=== PATIENT | female | born 1935 | race Caucasian/White ===

== ENCOUNTER 2018-07-03 12:39 | Inpatient (IN) ==
[2018-07-03] MEDS ORDERED: ALBUT/IPRATROP 3MG/0.5MG NEB 3 ML VIAL INH STA (13:15)
[2018-07-03 13:28] LABS: Basophils # (auto) 0.01 K/uL (0-0.2); Basophils % (auto) 0.1 %; Immature Granulocytes # (auto) 0.06 K/uL (0.00-0.02); Immature Granulocytes % (auto) 0.4 %; Lymphocytes # (auto) 0.42 K/uL (1.2-3.4); Lymphocytes % (auto) 2.9 %; Mean Corpuscular Hgb Conc 30.8 g/dL (32-36); Mean Platelet Volume 11.8 fL (7.4-10.4); Monocytes # (auto) 1.71 K/uL (0.11-0.59); Monocytes % (auto) 11.9 %; Neutrophils # (auto) 12.15 K/uL (1.4-6.5); Neutrophils % (auto) 84.7 %; Platelet Count 335 K/uL (130-400); RDW Coefficient of Variation 13.1 % (11.5-14.5); RDW Standard Deviation 49.8 fL (36.4-46.3); Red Blood Count 3.75 M/uL (4.2-5.4); White Blood Count 14.35 K/uL (4.8-10.8)
[2018-07-03 13:41] LABS: INR 1.1 (0.9-1.1); Partial Thromboplastin Ratio 0.9; Partial Thromboplastin Time 25.3 Seconds (21.0-31.0)
[2018-07-03 13:45] LABS: Albumin Level 3.1 gm/dl (3.4-5.0); BUN Creatinine Ratio 29.6 (10-20); Calcium 9.7 mg/dl (8.5-10.1); Creatinine Clr Calc Pharmacy 35.2 ml/min; Est GFR (African American) 73.5; Est GFR (Non-African American) 63.4; Potassium 3.7 mmol/L (3.5-5.1)
[2018-07-03] MEDS ORDERED: methylPREDNISolone 125 MG/2 ML VIAL IV STA (13:50)
[2018-07-03 13:54] LABS: Albumin Globulin Ratio 0.6 (0.9-2); Bilirubin,Total 0.4 mg/dl (0.2-1); Globulin 5.4 gm/dl (2.5-4.0); Total Protein 8.5 gm/dl (6.4-8.2); Troponin I 0.14 ng/ml (0-0.045)
[2018-07-03 13:54] LABS: Base Excess VBG 6.8 mEq/L; Oxygen Saturation VBG 81.2 %; pH VBG 7.31 (7.36-7.41)
--- NOTE | 2018-07-03 13:59 | XRay Report ---
XR chest 1V portable CLINICAL HISTORY: Dyspnea dyspnea COMPARISON STUDY: No previous studies for comparison. FINDINGS: Moderate emphysematous change. Prominent parenchymal markings throughout both hemithoraces suggesting chronic fibrotic change versus nonspecific infiltrative change. There are no consolidative regions. Diaphragms are smooth. IMPRESSION: 1. Hyperaeration. 2. Emphysematous change. 3. Prominent parenchymal markings throughout both hemithoraces possibly related to chronic fibrosis v ersus a nonspecific pneumonitis. The above report was generated using voice recognition software. It may contain grammatical, syntax or spelling errors. Electronically signed by: Arturo Carrillo M.D. 07/03/2018 1:57 PM
[2018-07-03] MEDS ORDERED: ALBUT/IPRATROP 3MG/0.5MG NEB 3 ML VIAL NEB STA (14:08)
[2018-07-03] MEDS ORDERED: ASPIRIN 81 MG CHEW PO STA (14:08)
[2018-07-03 14:21] LABS: Influenza A virus by PCR Neg for Influ A (Neg); Influenza B virus by PCR Neg for Influ B (Neg)
--- NOTE | 2018-07-03 14:28 | Emergency Department Note ---
Entered by Shorty Tineo acting as a scribe for Rosales Rehman M.D. History of Present Illness General Chief complaint: Respiratory Distress Stated complaint: RESPIRATORY DISTRESS Source: patient and other (nurses) History of Present Illness Onset (ago): hour(s) (worsening today) Location: chest (lungs) Pain Consistency: + other (worsening) Quality: + other (cough) Associated symptoms: + other (patient denies shortness of breath or any pain) Treatments prior to arrival: other (increased supplemental oxygen) The patient is an 83 year old female with COPD who presents to the Emergency Room with complaints of a persistent cough worsening today. Nursing staff report that the patient was found today by her home aides to be in significantly in creased work of breathing. They state that the patients supplemental oxygen was increased prior to arrival. A CPAP was also attempted, but they were unable to find an appropriately-fitting mask. The patient reports that she does not feel short of breath and is not in any pain. She denies recent cold symptoms or fevers. She notes that she chronically wears four liters of supplemental oxygen at home. She reports that she is a former smoker. Home Medications Home Medications Medication Instructions Recorded Confirmed Type ferrous sulfate 325 mg PO BID 07/03/18 07/03/18 History fluticasone propion-salmeterol 1 inh INHALATION BID 07/03/18 07/03/18 History [Advair Diskus] ipratropium-albuterol 3 ml INHALATION Q8H PRN 07/03/18 07/03/18 History levothyroxine 50 mcg PO QAM 07/03/18 07/03/18 History lisinopril 10 mg PO QAM 07/03/18 07/03/18 History lorazepam 0.5 mg PO UD PRN 07/03/18 07/03/18 History mesalamine [Apriso] 1.5 g PO QAM 07/03/18 07/03/18 History paroxetine HCl 10 mg PO QDL 07/03/18 07/03/18 History raloxifene [Evista] 60 mg PO QAM 07/03/18 07/03/18 History Allergies Allergy/AdvReac Type Severity Reaction Status Date / Time Penicillins Allergy Verified 07/03/18 15:38 Past Med/Surg History Medical History Adjustment disorder with mixed anxiety and depressed mood (Chronic) COPD (chronic obstructive pulmonary disease) (Chronic) Essential hypertension (Chronic) Hypercholesteremia (Chronic) Hypothyroidism (Chronic) Iron deficiency anemia (Chronic) Osteoporosis (Chronic) Requires supplemental oxygen (Chronic) Ulcerative colitis (Chronic) Family History Other Family history non-contributory Social History Preferred Language: Kyrgyz Communication Ability: confusion Beliefs That Will Affect Care: None Current Living Situation: [facility] Current Living Situation Comment: [facility] Other Information That Helps Us Care for You: No Feels Safe at Home: Yes Smoking Status: Former smoker Hx Alcohol Use: No Hx Substance Use: No Review of Systems See HPI for pertinent positives & negatives. and A total of 10 systems reviewed and were otherwise negative Physical Exam Vital Signs Vital Signs - 24 hr 07/03/18 12:45 07/03/18 12:54 07/03/18 13:08 Temperature 36.4 C L Temperature Source Oral Sepsis Recent Fever Within 48 Hours No Sepsis New/Unexplained Change in Mental Status No Sepsis Action Taken by Nursing No Action Required Pulse Rate 115 H 115 H 114 H Pulse Rate [Apical] Pulse Rate from SpO2 Sensor 115 H 115 H Pulse Rhythm [Apical] Pulse Strength [Apical] Respiratory Rate 26 H 28 H 40 H Respiratory Effort / Characteristics Labored Respiratory Depth Shallow Respiratory Pattern Tachypnea Blood Pressure 139/69 139/68 Blood Pressure [Right Arm] Blood Pressure Mean 92 91 Blood Pressure Mean [Right Arm] Blood Pressure Position [Right Arm] Pulse Oximetry 92 95 89 L Oxygen Delivery Method Nasal Cannula Oxygen Flow Rate 3 07/03/18 13:17 07/03/18 13:29 07/03/18 13:30 Temperature Temperature Source Sepsis Recent Fever Within 48 Hours Sepsis New/Unexplained Change in Mental Status Sepsis Action Taken by Nursing Pulse Rate 114 H 115 H Pulse Rate [Apical] 114 H Pulse Rate from SpO2 Sensor 115 H 114 H Pulse Rhythm [Apical] Pulse Strength [Apical] Respiratory Rate 43 H 36 H 42 H Respiratory Effort / Characteristics Labored Respiratory Depth Respiratory Pattern Blood Pressure Blood Pressure [Right Arm] Blood Pressure Mean Blood Pressure Mean [Right Arm] Blood Pressure Position [Right Arm] Pulse Oximetry 93 97 91 Oxygen Delivery Method Oxymask Non-rebreather Oxygen Flow Rate 10 07/03/18 13:42 07/03/18 13:43 07/03/18 13:45 Temperature Temperature Source Sepsis Recent Fever Within 48 Hours Sepsis New/Unexplained Change in Mental Status Sepsis Action Taken by Nursing Pulse Rate 114 H 114 H 112 H Pulse Rate [Apical] Pulse Rate from SpO2 Sensor 114 H 114 H 114 H Pulse Rhythm [Apical] Pulse Strength [Apical] Respiratory Rate 31 H 43 H 34 H Respiratory Effort / Characteristics Respiratory Depth Respiratory Pattern Blood Pressure 157/121 H 161/100 H Blood Pressure [Right Arm] Blood Pressure Mean 133 120 Blood Pressure Mean [Right Arm] Blood Pressure Position [Right Arm] Pulse Oximetry 92 91 92 Oxygen Delivery Method Oxygen Flow Rate 07/03/18 13:46 07/03/18 14:00 07/03/18 14:02 Temperature Temperature Source Sepsis Recent Fever Within 48 Hours Sepsis New/Unexplained Change in Mental Status Sepsis Action Taken by Nursing Pulse Rate 118 H 117 H Pulse Rate [Apical] 113 H Pulse Rate from SpO2 Sensor 120 H 115 H Pulse Rhythm [Apical] Regular Pulse Strength [Apical] Normal Respiratory Rate 36 H 44 H 30 H Respiratory Effort / Characteristics Spontaneous Short of Breath Respiratory Depth Retractive Respiratory Pattern Tachypnea Blood Pressure 174/80 H Blood Pressure [Right Arm] 161/100 H Blood Pressure Mean 111 Blood Pressure Mean [Right Arm] 120 Blood Pressure Position [Right Arm] Pulse Oximetry 92 95 95 Oxygen Delivery Method Oxymask Oxygen Flow Rate 5 07/03/18 14:15 07/03/18 14:30 07/03/18 14:31 Temperature Temperature Source Sepsis Recent Fever Within 48 Hours Sepsis New/Unexplained Change in Mental Status Sepsis Action Taken by Nursing Pulse Rate 115 H 118 H 117 H Pulse Rate [Apical] Pulse Rate from SpO2 Sensor 115 H 118 H 117 H Pulse Rhythm [Apical] Pulse Strength [Apical] Respiratory Rate 35 H 35 H 18 Respiratory Effort / Characteristics Respiratory Depth Respiratory Pattern Blood Pressure 150/114 H Blood Pressure [Right Arm] Blood Pressure Mean 126 Blood Pressure Mean [Right Arm] Blood Pressure Position [Right Arm] Pulse Oximetry 95 94 95 Oxygen Delivery Method Oxygen Flow Rate 07/03/18 14:45 07/03/18 15:00 07/03/18 15:01 Temperature Temperature Source Sepsis Recent Fever Within 48 Hours Sepsis New/Unexplained Change in Mental Status Sepsis Action Taken by Nursing Pulse Rate 116 H 116 H Pulse Rate [Apical] Pulse Rate from SpO2 Sensor 115 H 114 H 115 H Pulse Rhythm [Apical] Pulse Strength [Apical] Respiratory Rate 15 Respiratory Effort / Characteristics Respiratory Depth Respiratory Pattern Blood Pressure Blood Pressure [Right Arm] Blood Pressure Mean 96 Blood Pressure Mean [Right Arm] Blood Pressure Position [Right Arm] Pulse Oximetry 93 91 Oxygen Delivery Method Oxygen Flow Rate 07/03/18 15:02 07/03/18 15:10 07/03/18 15:15 Temperature Temperature Source Sepsis Recent Fever Within 48 Hours Sepsis New/Unexplained Change in Mental Status Sepsis Action Taken by Nursing Pulse Rate 113 H 111 H 114 H Pulse Rate [Apical] Pulse Rate from SpO2 Sensor 113 H 111 H 113 H Pulse Rhythm [Apical] Pulse Strength [Apical] Respiratory Rate 38 H Respiratory Effort / Characteristics Respiratory Depth Respiratory Pattern Blood Pressure 142/79 H Blood Pressure [Right Arm] Blood Pressure Mean 100 Blood Pressure Mean [Right Arm] Blood Pressure Position [Right Arm] Pulse Oximetry 92 93 92 Oxygen Delivery Method Oxygen Flow Rate 07/03/18 15:20 07/03/18 15:30 07/03/18 15:31 Temperature Temperature Source Sepsis Recent Fever Within 48 Hours Sepsis New/Unexplained Change in Mental Status Sepsis Action Taken by Nursing Pulse Rate 108 H 108 H 108 H Pulse Rate [Apical] Pulse Rate from SpO2 Sensor 109 H 107 H 108 H Pulse Rhythm [Apical] Pulse Strength [Apical] Respiratory Rate 34 H 33 H 36 H Respiratory Effort / Characteristics Respiratory Depth Respiratory Pattern Blood Pressure 115/76 Blood Pressure [Right Arm] Blood Pressure Mean 89 Blood Pressure Mean [Right Arm] Blood Pressure Position [Right Arm] Pulse Oximetry 93 92 Oxygen Delivery Method Oxygen Flow Rate 07/03/18 15:40 07/03/18 15:50 07/03/18 16:00 Temperature Temperature Source Sepsis Recent Fever Within 48 Hours Sepsis New/Unexplained Change in Mental Status Sepsis Action Taken by Nursing Pulse Rate 105 H 105 H 103 H Pulse Rate [Apical] Pulse Rate from SpO2 Sensor 105 H 105 H 103 H Pulse Rhythm [Apical] Pulse Strength [Apical] Respiratory Rate 37 H 32 H 32 H Respiratory Effort / Characteristics Respiratory Depth Respiratory Pattern Blood Pressure 117/65 Blood Pressure [Right Arm] Blood Pressure Mean 82 Blood Pressure Mean [Right Arm] Blood Pressure Position [Right Arm] Pulse Oximetry 92 92 92 Oxygen Delivery Method Oxygen Flow Rate 07/03/18 16:07 07/03/18 16:30 07/03/18 16:32 Temperature Temperature Source Sepsis Recent Fever Within 48 Hours Sepsis New/Unexplained Change in Mental Status Sepsis Action Taken by Nursing Pulse Rate 105 H Pulse Rate [Apical] Pulse Rate from SpO2 Sensor 106 H 105 H Pulse Rhythm [Apical] Pulse Strength [Apical] Respiratory Rate Respiratory Effort / Characteristics Respiratory Depth Respiratory Pattern Blood Pressure 156/78 H Blood Pressure [Right Arm] Blood Pressure Mean 104 Blood Pressure Mean [Right Arm] Blood Pressure Position [Right Arm] Pulse Oximetry 93 95 Oxygen Delivery Method Non-rebreather Oxygen Flow Rate 07/03/18 17:00 07/03/18 17:15 07/03/18 17:30 Temperature 37.2 C Temperature Source Oral Sepsis Recent Fever Within 48 Hours Sepsis New/Unexplained Change in Mental Status Sepsis Action Taken by Nursing Pulse Rate 103 H 103 H Pulse Rate [Apical] 104 H Pulse Rate from SpO2 Sensor 103 H 103 H Pulse Rhythm [Apical] Regular Pulse Strength [Apical] Respiratory Rate 16 Respiratory Effort / Characteristics Non-Labored Spontaneous SOB on Exertion Respiratory Depth Shallow Respiratory Pattern Tachypnea Blood Pressure 160/78 H Blood Pressure [Right Arm] 160/78 H Blood Pressure Mean 105 Blood Pressure Mean [Right Arm] 105 Blood Pressure Position [Right Arm] Lying Pulse Oximetry 94 94 94 Oxygen Delivery Method Nasal Cannula Oxygen Flow Rate 6 07/03/18 18:00 07/03/18 18:01 Temperature Temperature Source Sepsis Recent Fever Within 48 Hours Sepsis New/Unexplained Change in Mental Status Sepsis Action Taken by Nursing Pulse Rate 102 H 102 H Pulse Rate [Apical] Pulse Rate from SpO2 Sensor 103 H 102 H Pulse Rhythm [Apical] Pulse Strength [Apical] Respiratory Rate Respiratory Effort / Characteristics Respiratory Depth Respiratory Pattern Blood Pressure 158/74 H Blood Pressure [Right Arm] Blood Pressure Mean 102 Blood Pressure Mean [Right Arm] Blood Pressure Position [Right Arm] Pulse Oximetry 96 97 Oxygen Delivery Method Oxygen Flow Rate GENERAL: Awake, alert but occasionally slightly confused/waxing and waning, with increased work of breathing HENT: Normocephalic, atraumatic. Oropharynx unremarkable. EYES: Normal conjunctiva. Sclera non-icteric. NECK: Supple. No nuchal rigidity. RESPIRATORY: Clear to auscultation. No wheezes. Tachypnea and increased work of breathing. Diminished breath sounds throughout. CARDIAC: Tachycardic rate. Normal rhythm. Extremities warm and well perfused. GI: Soft, non-distended. No tenderness to palpation. No rebound or guarding. RECTAL: Deferred. MUSCULOSKELETAL: Atraumatic. Chest examination reveals no tenderness. LOWER EXTREMITIES: Calves are equal size bilaterally and non-tender. No edema NEURO: Normal sensorium. No sensory or motor deficits noted. No facial droop. SKIN: Warm and dry. No rash or jaundice noted. Course 1313: Past medical records reviewed. The patient was evaluated in room C8, and a complete history and physical examination were performed. 1428: I consulted Caridad Fisher PA-C: [facility] Hospitalist with Dr. Diaz. The patient will be reevaluated for hospitalization. Consultations Consultation #1: I consulted Caridad Fisher PA-C: [facility] Hospitalist with Dr. Diaz. The patient will be reevaluated for hospitalization. Time: 14:28 Administered Medications Dextrose/Sodium Chloride (D5w And 1/2nss) 1,000 mls @ 50 mls/hr IV .Q20H PABLO Stop: 08/02/18 16:54 Last Admin: 07/03/18 17:13 Dose: 50 mls/hr Documented by: [id number] Azithromycin 500 mg/ Dextrose 255 mls @ 127.5 mls/hr IV TODAY@1800 ONE Stop: 07/03/18 19:59 Last Admin: 07/03/18 17:57 Dose: 127.5 mls/hr Documented by: [id number] Discontinued Medications Albuterol (Duoneb) 3 ml INH NOW STA Stop: 07/03/18 13:16 Last Admin: 07/03/18 13:43 Dose: 3 ml Documented by: [id number] Albuterol (Duoneb) 3 ml NEB NOW STA Stop: 07/03/18 14:09 Last Admin: 07/03/18 14:17 Dose: 3 ml Documented by: [id number] Aspirin (Aspirin Chew) 324 mg PO NOW STA Stop: 07/03/18 14:09 Last Admin: 07/03/18 14:17 Dose: 324 mg Documented by: [id number] Methylprednisolone (Solumedrol) 125 mg IV NOW STA Stop: 07/03/18 13:51 Last Admin: 07/03/18 13:55 Dose: 125 mg Documented by: [id number] Medical Decision Making Differential Diagnosis Differential diagnosis: Etiologies such as infections, reactive airway disease, pneumonia, pneumothorax, COPD, CHF, cardiac ischemia, pulmonary embolism, musculoskeletal, gastrointestinal, as well as others were entertained. Medical Records Attestation: I reviewed the patient's medical records. Home Medications Current Medication List: was personally reviewed by me Laboratory Data Attestation: I reviewed the patient's lab results. Result diagrams: 07/03/18 13:19 07/03/18 13:19 Lab Results 07/03/18 07/03/18 07/03/18 Range/Units 13:19 13: 13: WBC 14.35 H (4.8-10.8) K/uL RBC 3.75 L (4.2-5.4) M/uL Hgb 12.0 (12.0-16.0) g/dL Hct 39.0 (37-47) % MCV 104.0 H (80-100) fL MCH 32.0 (25-34) pg MCHC 30.8 L (32-36) g/dL RDW Std Deviation 49.8 H (36.4-46.3) fL RDW Coeff of Robin 13.1 (11.5-14.5) % Plt Count 335 (130-400) K/uL MPV 11.8 H (7.4-10.4) fL Immature Gran % (Auto) 0.4 % Neut % (Auto) 84.7 % Lymph % (Auto) 2.9 % [place] % (Auto) 11.9 % Eos % (Auto) 0.0 % Baso % (Auto) 0.1 % Immature Gran # (Auto) 0.06 H (0.00-0.02) K/uL Neut # (Auto) 12.15 H (1.4-6.5) K/uL Lymph # (Auto) 0.42 L (1.2-3.4) K/uL [place] # (Auto) 1.71 H (0.11-0.59) K/uL Eos # (Auto) 0.00 (0-0.5) K/uL Baso # (Auto) 0.01 (0-0.2) K/uL PT 11.0 (9.0-12.0) Seconds INR 1.1 (0.9-1.1) APTT 25.3 (21.0-31.0) Seconds PTT Ratio 0.9 VBG pH (7.36-7.41) VBG pCO2 (38-50) mmHg VBG pO2 mmHg VBG HCO3 mmol/L VBG O2 Saturation % VBG Base Excess mEq/L Barometric Pressure mm/Hg Sodium 141 (136-145) mmol/L Potassium 3.7 (3.5-5.1) mmol/L Chloride 103 (98-107) mmol/L Carbon Dioxide 33 H (21-32) mmol/L Anion Gap 5.0 (3-11) BUN 25 H (7-18) mg/dl Creatinine 0.84 (0.6-1.2) mg/dl Est Cr Clr Drug Dosing 35.2 ml/min Est GFR ( Amer) 73.5 Est GFR (Non-Af Amer) 63.4 BUN/Creatinine Ratio 29.6 H (10-20) Glucose 229 H (70-99) mg/dl POC Lactic Acid Mauricio (0.90-1.70) mmol/L Calcium 9.7 (8.5-10.1) mg/dl Total Bilirubin 0.4 (0.2-1) mg/dl AST 19 (15-37) U/L ALT 15 (12-78) U/L Alkaline Phosphatase 77 (45-117) U/L Troponin I 0.140 H* (0-0.045) ng/ml Total Protein 8.5 H (6.4-8.2) gm/dl Albumin 3.1 L (3.4-5.0) gm/dl Globulin 5.4 H (2.5-4.0) gm/dl Albumin/Globulin Ratio 0.6 L (0.9-2) Procalcitonin (0-0.5) ng/ml Influenza Type A (PCR) (Neg) Influenza Type B (PCR) (Neg) 07/03/18 07/03/18 07/03/18 Range/Units 13:23 13:28 13:45 WBC (4.8-10.8) K/uL RBC (4.2-5.4) M/uL Hgb (12.0-16.0) g/dL Hct (37-47) % MCV (80-100) fL MCH (25-34) pg MCHC (32-36) g/dL RDW Std Deviation (36.4-46.3) fL RDW Coeff of Robin (11.5-14.5) % Plt Count (130-400) K/uL MPV (7.4-10.4) fL Immature Gran % (Auto) % Neut % (Auto) % Lymph % (Auto) % [place] % (Auto) % Eos % (Auto) % Baso % (Auto) % Immature Gran # (Auto) (0.00-0.02) K/uL Neut # (Auto) (1.4-6.5) K/uL Lymph # (Auto) (1.2-3.4) K/uL [place] # (Auto) (0.11-0.59) K/uL Eos # (Auto) (0-0.5) K/uL Baso # (Auto) (0-0.2) K/uL PT (9.0-12.0) Seconds INR (0.9-1.1) APTT (21.0-31.0) Seconds PTT Ratio VBG pH 7.31 L (7.36-7.41) VBG pCO2 73 H (38-50) mmHg VBG pO2 47 mmHg VBG HCO3 36 mmol/L VBG O2 Saturation 81.2 % VBG Base Excess 6.8 mEq/L Barometric Pressure 741.3 mm/Hg Sodium (136-145) mmol/L Potassium (3.5-5.1) mmol/L Chloride (98-107) mmol/L Carbon Dioxide (21-32) mmol/L Anion Gap (3-11) BUN (7-18) mg/dl Creatinine (0.6-1.2) mg/dl Est Cr Clr Drug Dosing ml/min Est GFR ( Amer) Est GFR (Non-Af Amer) BUN/Creatinine Ratio (10-20) Glucose (70-99) mg/dl POC Lactic Acid Mauricio 1.27 (0.90-1.70) mmol/L Calcium (8.5-10.1) mg/dl Total Bilirubin (0.2-1) mg/dl AST (15-37) U/L ALT (12-78) U/L Alkaline Phosphatase (45-117) U/L Troponin I (0-0.045) ng/ml Total Protein (6.4-8.2) gm/dl Albumin (3.4-5.0) gm/dl Globulin (2.5-4.0) gm/dl Albumin/Globulin Ratio (0.9-2) Procalcitonin (0-0.5) ng/ml Influenza Type A (PCR) Neg for Influ A (Neg) Influenza Type B (PCR) Neg for Influ B (Neg) 07/03/18 Range/Units 14:49 WBC (4.8-10.8) K/uL RBC (4.2-5.4) M/uL Hgb (12.0-16.0) g/dL Hct (37-47) % MCV (80-100) fL MCH (25-34) pg MCHC (32-36) g/dL RDW Std Deviation (36.4-46.3) fL RDW Coeff of Robin (11.5-14.5) % Plt Count (130-400) K/uL MPV (7.4-10.4) fL Immature Gran % (Auto) % Neut % (Auto) % Lymph % (Auto) % [place] % (Auto) % Eos % (Auto) % Baso % (Auto) % Immature Gran # (Auto) (0.00-0.02) K/uL Neut # (Auto) (1.4-6.5) K/uL Lymph # (Auto) (1.2-3.4) K/uL [place] # (Auto) (0.11-0.59) K/uL Eos # (Auto) (0-0.5) K/uL Baso # (Auto) (0-0.2) K/uL PT (9.0-12.0) Seconds INR (0.9-1.1) APTT (21.0-31.0) Seconds PTT Ratio VBG pH (7.36-7.41) VBG pCO2 (38-50) mmHg VBG pO2 mmHg VBG HCO3 mmol/L VBG O2 Saturation % VBG Base Excess mEq/L Barometric Pressure mm/Hg Sodium (136-145) mmol/L Potassium (3.5-5.1) mmol/L Chloride (98-107) mmol/L Carbon Dioxide (21-32) mmol/L Anion Gap (3-11) BUN (7-18) mg/dl Creatinine (0.6-1.2) mg/dl Est Cr Clr Drug Dosing ml/min Est GFR ( Amer) Est GFR (Non-Af Amer) BUN/Creatinine Ratio (10-20) Glucose (70-99) mg/dl POC Lactic Acid Mauricio (0.90-1.70) mmol/L Calcium (8.5-10.1) mg/dl Total Bilirubin (0.2-1) mg/dl AST (15-37) U/L ALT (12-78) U/L Alkaline Phosphatase (45-117) U/L Troponin I (0-0.045) ng/ml Total Protein (6.4-8.2) gm/dl Albumin (3.4-5.0) gm/dl Globulin (2.5-4.0) gm/dl Albumin/Globulin Ratio (0.9-2) Procalcitonin 1.83 H (0-0.5) ng/ml Influenza Type A (PCR) (Neg) Influenza Type B (PCR) (Neg) Imaging Data Radiologist's Impression: Radiology results as stated below per my review and the radiologist's interpretation: XR chest 1V portable CLINICAL HISTORY: Dyspnea dyspnea COMPARISON STUDY: No previous studies for comparison. FINDINGS: Moderate emphysematous change. Prominent parenchymal markings throughout both hemithoraces suggesting chronic fibrotic change versus nonspecific infiltrative change. There are no consolidative regions. Diaphragms are smooth. IMPRESSION: 1. Hyperaeration. 2. Emphysematous change. 3. Prominent parenchymal markings throughout both hemithoraces possibly related to chronic fibrosis versus a nonspecific pneumonitis. The above report was generated using voice recognition software. It may contain grammatical, syntax or spelling errors. Electronically signed by: Arturo Carrillo M.D. 07/03/2018 1:57 PM ECG Data Attestation: I personally reviewed and interpreted this ECG as follows: Indication: SOB/dyspnea Rate (beats per minute): 114 Rhythm: sinus tachycardia Findings: + other (nonspecific T-wave changes) and + RBBB (incomplete); no PVC and no ST elevation Blood Pressure Blood Pressure Findings: Elevated blood pressure Blood Pressure Disposition: further management by hospitalist DAINA Narrative 83-year-old female reporting a history of COPD on 3-1/2 L of home oxygen presenting today complaining of a slight cough. Evidently aids found her today with significantly increased work of breathing. Required additional oxygen prior to arrival and attempted CPAP but unable to find a appropriate fitting mask. Patient does have some slight increased work of breathing and slight tachypnea but not acutely hypoxic here and is now back on 4 L oxygen. Does have diffuse crackles and decreased lung movement. Given a DuoNeb. Chest x-ray complete along with VBG, influenza, blood culture, EKG, and basic labs. Patient does have slight troponin unsure if this is chronic or not but could be from increased work of breathing. Do not believe this represents acute PE and doubt based on EKG STEMI. Denies CP. Slight troponin elevation likely demand in the setting of her increased work of breathing no significant evidence of CHF on exam. Concerned this could be a COPD exacerbation versus developing pneumonia. Patient does have a slight leukocytosis of 14 but no clear evidence of infiltrate on CT. Patient has very limited medical records and is unable to give me a good history. To give her a dose of steroids along with aspirin and DuoNebs. Respiratory is unable to place a CPAP/BiPAP on the patient due to her small habitus. Will need close monitoring. Influenza testing was negative. Discussed with the hospitalist for admission. Impression & Plan COPD exacerbation, Non-ST elevation [place] (NSTEMI) Discharge Plan Visit Data *Final* Discharge Date/Time: 07/03/18 16:07 Chief Complaint: Respiratory Distress Stated Complaint: RESPIRATORY DISTRESS ED Provider: Rosales Rehman Discharge Problem: COPD exacerbation, Non-ST elevation [place] (NSTEMI) Patient Disposition: Admitted As Inpatient Discharge Instructions Interventions: ED Discharge Assessment Last Done: 07/03/18 16:07 The zachariahibe's documentation has been prepared under my direction and personally reviewed by me in its entirety. I confirm that the note above accurately reflects all work, treatment, procedures, and medical decision making performed by me.
--- NOTE | 2018-07-03 15:46 | History & Physical Report ---
Date of Service July 03, 2018 Assessment & Plan (1) COPD exacerbation: Concern for impending respiratory failure - suspect pt would benefit from BiPAP but unable to have done in ED as respiratory therapy did not have a mask that will fit patient. If unable to do BiPAP and pt declines, may need to consider intubation. At this point, pt would be agreeable but attempting to reach family to clarify. - Admit to ICU and consult critical care service - attending physician spoke with on-call physician for ICU who will evaluate patient - Continue IV solumedrol - Continue Oxygen via OxyMask for now - DuoNebs Q4 hours - Hold antibiotics until evaluated by critical care - pt with leukocytosis but afebrile and lactic acid <2. Check procalcitonin (2) Elevated troponin: Suspect demand ischemia related to respiratory compromise - follow troponin Q6H, monitor on telemetry in ICU (3) Hypothyroidism: - Continue levothyroxine but change to IV formulation since patient NPO - Check TSH due to tachycardia although suspect the elevated HR due to (4) Essential hypertension: Holding home meds - monitor for now (5) Ulcerative colitis: Home meds on hold since pt NPO - will resume Apriso once able Patient seen and evaluated with collaborating physician, Dr. Diaz. Plan of care discussed and as outlined above. Further interventions to be determined pending critical care consult and conversation with family once able to be reached. Cyndie Fisher PA-C History of Present Illness Primary Care Provider: PCP - Su Gray 83 y/o female with a history of O2 dependent COPD, HTN, hypothyroidism, dyslipidemia and ulcerative colitis presented to the ED earlier today with progressive dyspnea. Pt lives at [facility] - when the home health aide came this morning, she apparently found patient more short of breath than usual so called EMS. In the ED, pt was found to be hypoxic. Initially, it was thought that patient would benefit from BiPAP but respiratory therapy was unable to find a mask that would fit her appropriately so instead she has been receiving O2 via OxyMask. Per nursing, there has been some improvement post-nebs and steroids but pt continues with increased oxygen demand and tachypnea. History from patient somewhat limited as she seemed to minimize symptoms or not recall history. She does report that her breathing has gradually worsened over the past 2-3 days, particularly since last night. She denies significant cough. She denies chest pain, palpitations, N/V, dizziness, fevers or chills. She is asking to go home today. Her son is her power of bioengineer but he lives outside the area - per the pt, he travels in an but is currently on his way to [place] from [place]. Allergies Allergy/AdvReac Type Severity Reaction Status Date / Time Penicillins Allergy Verified 07/03/18 15:38 Home Medications Home Medications Medication Instructions Recorded Confirmed Type ferrous sulfate 325 mg PO BID 07/03/18 07/03/18 History fluticasone propion-salmeterol 1 inh INHALATION BID 07/03/18 07/03/18 History [Advair Diskus] ipratropium-albuterol 3 ml INHALATION Q8H PRN 07/03/18 07/03/18 History levothyroxine 50 mcg PO QAM 07/03/18 07/03/18 History lisinopril 10 mg PO QAM 07/03/18 07/03/18 History lorazepam 0.5 mg PO UD PRN 07/03/18 07/03/18 History mesalamine [Apriso] 1.5 g PO QAM 07/03/18 07/03/18 History paroxetine HCl 10 mg PO QDL 07/03/18 07/03/18 History raloxifene [Evista] 60 mg PO QAM 07/03/18 07/03/18 History Past Med/Surg History Medical History Adjustment disorder with mixed anxiety and depressed mood (Chronic) COPD (chronic obstructive pulmonary disease) (Chronic) Essential hypertension (Chronic) Hypercholesteremia (Chronic) Hypothyroidism (Chronic) Iron deficiency anemia (Chronic) Osteoporosis (Chronic) Requires supplemental oxygen (Chronic) Ulcerative colitis (Chronic) Family History Other Family history non-contributory Social History Preferred Language: Kiswahili Communication Ability: confusion Beliefs That Will Affect Care: None Current Living Situation: Senior Living Current Living Situation Comment: [facility] Other Information That Helps Us Care for You: No Feels Safe at Home: Yes Smoking Status: Former smoker Hx Alcohol Use: No Hx Substance Use: No Review of Systems Other (Limited due to respiratory status, poor historian - as able to obtain below and in HPI) Constitutional: + fatigue and + weakness; no fever and no chills Eyes: no diplopia Respiratory: no dyspnea and no wheezing Cardiovascular: no chest pain, no palpitations and no syncope Gastrointestinal: no nausea and no vomiting Psychiatric: + anxiety Physical Exam Vital Signs (Past 24 Hours): Last Vital Signs Temp 36.4 C L 07/03/18 13:08 Pulse 116 H 07/03/18 15:01 Resp 15 07/03/18 15:00 BP 150/114 H 07/03/18 14:31 Pulse Ox 91 07/03/18 15:01 Constitutional: + acute distress (respiratory - tachypneic), + ill appearing, + cachectic and + frail appearing Eyes: + anicteric sclerae; no corneal abnormality ENMT: OxyMask in place but frequently sliding up face Neck: trachea midline Respiratory: + respiratory distress, + labored breathing and + tachypneic (at ~32-36 breaths per minute); + not able to speak in complete sentence Auscultation: + diminished lung sounds and + wheezes (faint intermittently throughout); no rales and no rhonchi Cardiovascular: Rate/Rhythm: regular rhythm and + tachycardic Heart Sounds: no gallop and no cardiac rub Extremities: normal capillary refill; no calf tenderness and no pedal edema Gastrointestinal (Abdomen): Inspection/Auscultation: normal bowel sounds; abdomen not distended Percussion/Palpation: abdomen soft; abdomen nontender Musculoskeletal: Head/Neck/Chest: normocephalic and head atraumatic Extremities: no cyanosis Skin: no rashes and no jaundice Neurologic: moves all extremities and awake Psychiatric: Orientation: oriented x 3 Eye Contact: good eye contact Affect: + anxious affect Mood: + anxious mood Insight: + fair insight Results & Data Laboratory Results Laboratory Results - last 24 hr 07/03/18 07/03/18 07/03/18 13:19 13:19 13:19 WBC 14.35 H RBC 3.75 L Hgb 12.0 Hct 39.0 MCV 104.0 H MCH 32.0 MCHC 30.8 L RDW Std Deviation 49.8 H RDW Coeff of Robin 13.1 Plt Count 335 MPV 11.8 H Immature Gran % (Auto) 0.4 Neut % (Auto) 84.7 Lymph % (Auto) 2.9 Walker % (Auto) 11.9 Eos % (Auto) 0.0 Baso % (Auto) 0.1 Immature Gran # (Auto) 0.06 H Neut # (Auto) 12.15 H Lymph # (Auto) 0.42 L Walker # (Auto) 1.71 H Eos # (Auto) 0.00 Baso # (Auto) 0.01 PT 11.0 INR 1.1 APTT 25.3 PTT Ratio 0.9 VBG pH VBG pCO2 VBG pO2 VBG HCO3 VBG O2 Saturation VBG Base Excess Barometric Pressure Sodium 141 Potassium 3.7 Chloride 103 Carbon Dioxide 33 H Anion Gap 5.0 BUN 25 H Creatinine 0.84 Est Cr Clr Drug Dosing 35.2 Est GFR ( Amer) 73.5 Est GFR (Non-Af Amer) 63.4 BUN/Creatinine Ratio 29.6 H Glucose 229 H POC Lactic Acid Mauricio Calcium 9.7 Total Bilirubin 0.4 AST 19 ALT 15 Alkaline Phosphatase 77 Troponin I 0.140 H* Total Protein 8.5 H Albumin 3.1 L Globulin 5.4 H Albumin/Globulin Ratio 0.6 L Influenza Type A (PCR) Influenza Type B (PCR) 07/03/18 07/03/18 07/03/18 13:23 13:28 13:45 WBC RBC Hgb Hct MCV MCH MCHC RDW Std Deviation RDW Coeff of Robin Plt Count MPV Immature Gran % (Auto) Neut % (Auto) Lymph % (Auto) Walker % (Auto) Eos % (Auto) Baso % (Auto) Immature Gran # (Auto) Neut # (Auto) Lymph # (Auto) Walker # (Auto) Eos # (Auto) Baso # (Auto) PT INR APTT PTT Ratio VBG pH 7.31 L VBG pCO2 73 H VBG pO2 47 VBG HCO3 36 VBG O2 Saturation 81.2 VBG Base Excess 6.8 Barometric Pressure 741.3 Sodium Potassium Chloride Carbon Dioxide Anion Gap BUN Creatinine Est Cr Clr Drug Dosing Est GFR ( Amer) Est GFR (Non-Af Amer) BUN/Creatinine Ratio Glucose POC Lactic Acid Mauricio 1.27 Calcium Total Bilirubin AST ALT Alkaline Phosphatase Troponin I Total Protein Albumin Globulin Albumin/Globulin Ratio Influenza Type A (PCR) Neg for Influ A Influenza Type B (PCR) Neg for Influ B Diagnostic Findings Chest X-ray 07/03/18 - IMPRESSION: 1. Hyperaeration. 2. Emphysematous change. 3. Prominent parenchymal markings throughout both hemithoraces possibly related to chronic fibrosis versus a nonspecific pneumonitis. Medications Administered Discontinued Medications Albuterol (Duoneb) 3 ml INH NOW STA Stop: 07/03/18 13:16 Last Admin: 07/03/18 13:43 Dose: 3 ml Documented by: [id number] Albuterol (Duoneb) 3 ml NEB NOW STA Stop: 07/03/18 14:09 Last Admin: 07/03/18 14:17 Dose: 3 ml Documented by: [id number] Aspirin (Aspirin Chew) 324 mg PO NOW STA Stop: 07/03/18 14:09 Last Admin: 07/03/18 14:17 Dose: 324 mg Documented by: [id number] Methylprednisolone (Solumedrol) 125 mg IV NOW STA Stop: 07/03/18 13:51 Last Admin: 07/03/18 13:55 Dose: 125 mg Documented by: [id number] Code Status & VTE Plan Code Status Attempted to discuss code status with patient but it is unclear how much she understands. She states that her son is her POA and that she has a living will but when it asked what it says, she had trouble answering. At this point, she seems to want everything done including intubation if required. Once son arrives from out of state, this will need to be discussed again. Supervising Physician Co-Signing Physician Notes I have seen and examined the patient with physician legal executive assistant and would like to comment that since patient was evaluated with physician legal executive assistant in the emergency room that patient's health status appears to have made some improvements originally that the main concern was that patient was in acute on chronic respiratory failure and concerns that patient may require intubation. reports from ED provider that attempts to place on BIPAP was not successful as patient's face could not make tight seal with smallest possible BIPAP mask. Patient noted on ABG to have pH 7.31 of respiratory acidosis secondary to CO2 retention. Patient was in the ED on oxygen mask of 5 liter/minute and appeared to have labored breathing in the ED. Patient had received solumedrol in the ED and plans were to continue patient on nebulizer treatments while awaiting further evaluation in the intensive care unit. While in the intensive care unit, patient has further spells of coughing and then after bout of coughing her breathing was reported to be improved. As per ICU/pulmonary physician patient likely had mucous plug that cleared and allowed for improvements of respiratory symptoms and that patient likely does not need further admission to the ICU. Plans are being made to transfer patient from ICU to PCU/telemetry. Patient does not have chest pain but mild elevations in troponins likely due to previous increased work of breathing. Will trend troponins. Tachycardia also likely due to increased work of breathing. Will check TSH for history of hypoythroidism on Levothyroxine. Patient's code status as per patient and confirmed by family member (her son Hola by phone [phone]) of DO NOT RESUCITATE AND DO NOT I NTUBATE. Patient's grandson aslo at bedside ([phone]) Patient will continue to have scheduled nebulizer treatments and scheduled solumedrol. Will start azithromycin due to possible COPD exacerbation and antibiotic coverage because of elevated procalcitonin. The single view Chest X ray does not suggest pneumonia at this time Because of concern for mucous plugs, will keep patient on aspiration precautions. Will seek dsyphagia screen and speech and swallow evaluation for now. Will continue IV fluids and calories as D5 1/[address] on sliding scale insulin because of glucose coverage will hold oral medictaions of levothyroxine and anti-hypertensives of oral lisinopril for now
[2018-07-03] MEDS ORDERED: D5W AND 1/2NSS 1,000 ML IV SCH (16:55)
[2018-07-03] MEDS ORDERED: ICU PROTOCOL FOR HYPERGLYCEMIA PRN (16:55)
[2018-07-03] MEDS ORDERED: CARBOHYDRATES FOR HYPOGLYCEMIA PO PRN (17:34)
[2018-07-03] MEDS ORDERED: GLUCOSE 10 TABS/TUBE PO PRN (17:34)
[2018-07-03] MEDS ORDERED: GLUCAGON FOR INJ 1 MG VIAL SQ PRN (17:34)
[2018-07-03] MEDS ORDERED: DEXTROSE 50% 50 ML SYRINGE IV PRN (17:34)
[2018-07-03] MEDS ORDERED: GLUCOSE 40% GEL 15 GM TUBE PO PRN (17:34)
[2018-07-03] MEDS ORDERED: AZITHROMYCIN 500 MG in DEXTROSE 5% 250 ML IV ONE (18:00)
[2018-07-03 18:30] LABS: Base Excess VBG 4.4 mEq/L; Oxygen Saturation VBG 94.7 %; pH VBG 7.36 (7.36-7.41)
[2018-07-03] MEDS ORDERED: ENOXAPARIN INJ 40 MG/0.4 ML SYR SQ SCH (19:00)
[2018-07-03] MEDS: ALBUT/IPRATROP 3MG/0.5MG NEB 3 ML VIAL NEB SCH ×3 (19:06→23:22)
[2018-07-03] MEDS ORDERED: INFLUENZA VACCINE HIGH DOSE 65+ 0.5 ML SYR IM ONE (19:15)
[2018-07-03] MEDS ORDERED: PNEUMOCOCCAL ADMINISTRATION CHARGE ONE (19:15)
[2018-07-03] MEDS ORDERED: INFLUENZA ADMINISTRATION CHARGE ONE (19:15)
[2018-07-03] MEDS ORDERED: PNEUMOCOCCAL POLYSACCHARIDES 25 MCG/0.5 ML VIAL/SYR IM ONE (19:15)
[2018-07-03 20:28] LABS: Troponin I 0.138 ng/ml (0-0.045)
[2018-07-03] MEDS: methylPREDNISolone 40 MG in SYRINGE 0 ML IV SCH (21:54)
[2018-07-03] MEDS: INSULIN ASPART 100 UNITS/ML 3 ML PEN SC SCH (22:00)
[2018-07-04 02:21] LABS: Hematocrit (blood only) 38.8 % (37-47); Hemoglobin 11.8 g/dL (12.0-16.0); Mean Corpuscular Hgb Conc 30.4 g/dL (32-36); Mean Corpuscular Volume 102.6 fL (80-100); Mean Platelet Volume 11.7 fL (7.4-10.4); Platelet Count 278 K/uL (130-400); RDW Standard Deviation 48.9 fL (36.4-46.3); Red Blood Count 3.78 M/uL (4.2-5.4); White Blood Count 10.77 K/uL (4.8-10.8)
[2018-07-04 02:27] LABS: Base Excess VBG 6.6 mEq/L; Oxygen Saturation VBG 67.2 %; pH VBG 7.32 (7.36-7.41)
[2018-07-04 02:37] LABS: Albumin Level 2.6 gm/dl (3.4-5.0); BUN Creatinine Ratio 29.5 (10-20); Calcium 8.9 mg/dl (8.5-10.1); Creatinine Clr Calc Pharmacy 36.9 ml/min; Est GFR (African American) 77.9; Est GFR (Non-African American) 67.2; Potassium 3.6 mmol/L (3.5-5.1)
[2018-07-04 02:40] LABS: Albumin Globulin Ratio 0.5 (0.9-2); Bilirubin,Total 0.4 mg/dl (0.2-1); Globulin 5.3 gm/dl (2.5-4.0); Total Protein 7.9 gm/dl (6.4-8.2)
[2018-07-04 02:59] LABS: Immature Granulocytes # (auto) 0.12 K/uL (0.00-0.02); Immature Granulocytes % (auto) 1.1 %; Lymphocytes # (auto) 0.46 K/uL (1.2-3.4); Lymphocytes % (auto) 4.3 %; Monocytes # (auto) 0.98 K/uL (0.11-0.59); Monocytes % (auto) 9.1 %; Neutrophils # (auto) 9.21 K/uL (1.4-6.5); Neutrophils % (auto) 85.5 %; Toxic Vacuolation 1+
[2018-07-04] MEDS: ALBUT/IPRATROP 3MG/0.5MG NEB 3 ML VIAL NEB SCH ×6 (03:58→23:05)
[2018-07-04] MEDS: methylPREDNISolone 40 MG in SYRINGE 0 ML IV SCH (05:33)
--- NOTE | 2018-07-04 07:47 | Critical Care Consultation ---
Date of Consultation July 03, 2018 Assessment & Plan (1) COPD exacerbation: Impression: 1. Acute respiratory distress likely secondary to mucoid impaction in a patient who has advanced COPD. 2. COPD gold level 3, home O2 dependent at 3.5 L/min. 3. Overall cachexia. 4. Cor pulmonale with hypercapnia. 5. The patient is well compensated respiratory acidosis with metabolic alkalosis on 2 VBG that has been drawn. 6. Possible conversion to pulmonary fibrosis noted on the chest x-ray, I could not review it. 7. Non-ST elevation MA, type II due to respiratory distress. Plan: 1. Continue bronchodilators on a standing basis. 2. Continue with azithromycin. 3. Solu-Medrol for 24 hours then switch the patient to prednisone 40 mg p.o. daily for 5 days, no taper. 4. Transfer the patient to regular floor. 5. Patient does not want to be placed on life support if needed. 6. Discussed with the patient, and her grandsons at the bedside. Discussed with the staff in details, CCM time spent with the patient was 35 minutes. History of Present Illness Reason for Consultation: Acute respiratory distress Requesting Physician: Dr. Diaz Attending Physician: Samm Yanez MD History of Present Illness Dear Dr. Diaz: Thank you very kind referral of Mrs. Vanegas to critical care service. This is 83-year-old female [facility] resident, who has been according to her sitting at her window where it was open, and she was not eating at that time, all of a sudden she started having increasing shortness of breath. The patient by the time the nursing staff arrived to her, she was not breathing very well, and has to be transferred to the ER. In the ED, the patient was found to be tachypneic, she was placed on oxygen mask, and given nebulizer treatment. Due to her respiratory distress, the patient was attempted to be placed on the BiPAP but she could not tolerate the mask, due to her small face, even small size fullface mask was not fitting off. The patient finally was able to cough up greenish sputum according to her. She did not have any hemoptysis, there was no nausea or vomiting reported, she was not sleeping when the episode started. No choking sensation either. Denies any abdominal pain no heartburn. She has not been feeling sick for the past few days. Review of system otherwise was unremarkable. The patient was transferred to the ICU initially however by the time she arrived to the ICU she was completely recovered and back to her baseline. Chest x-ray was unable to be reviewed personally due to the computer being down. Allergies Allergy/AdvReac Type Severity Reaction Status Date / Time Penicillins Allergy Verified 07/03/18 15:38 Home Medications Home Medications Medication Instructions Recorded Confirmed Type ferrous sulfate 325 mg PO BID 07/03/18 07/03/18 History fluticasone propion-salmeterol 1 inh INHALATION BID 07/03/18 07/03/18 History [Advair Diskus] ipratropium-albuterol 3 ml INHALATION Q8H PRN 07/03/18 07/03/18 History levothyroxine 50 mcg PO QAM 07/03/18 07/03/18 History lisinopril 10 mg PO QAM 07/03/18 07/03/18 History lorazepam 0.5 mg PO UD PRN 07/03/18 07/03/18 History mesalamine [Apriso] 1.5 g PO QAM 07/03/18 07/03/18 History paroxetine HCl 10 mg PO QDL 07/03/18 07/03/18 History raloxifene [Evista] 60 mg PO QAM 07/03/18 07/03/18 History Patient History Medical History Adjustment disorder with mixed anxiety and depressed mood (Chronic) COPD (chronic obstructive pulmonary disease) (Chronic) Essential hypertension (Chronic) Hypercholesteremia (Chronic) Hypothyroidism (Chronic) Iron deficiency anemia (Chronic) Osteoporosis (Chronic) Requires supplemental oxygen (Chronic) Ulcerative colitis (Chronic) Family History Other Family history non-contributory Social History Preferred Language: Ugandan Communication Ability: confusion Beliefs That Will Affect Care: None Current Living Situation: Prison Current Living Situation Comment: [facility] Other Information That Helps Us Care for You: No Feels Safe at Home: Yes Smoking Status: Former smoker Hx Alcohol Use: No Hx Substance Use: No Review of Systems 14 systems otherwise were unremarkable, the patient is fairly good historian. Physical Exam Vital Signs (Past 24 Hours): Last Vital Signs Temp 37.2 C 07/03/18 17:15 Pulse 102 H 07/03/18 18:01 Resp 16 07/03/18 17:15 BP 158/74 H 07/03/18 18:01 Pulse Ox 97 07/03/18 18:01 Physical Exam: Vital signs are stable, S1-S2 regular rate and rhythm, rhonchi bilaterally, no wheezing, kyphosis, no oral lesions, no JVD, abdomen is benign, no edema, cachexia, no focal neuro exam. Results & Data Laboratory Results Labs were reviewed showing leukocytosis, stable hematocrit, troponin is positive, venous ABG was 7.36 pH. Previous one was 7.31. Diagnostic Findings By report, I could not reviewed due to the computer being down, the patient has emphysematous changes with increased interstitial markings.
[2018-07-04] MEDS ORDERED: LEVOTHYROXINE SODIUM 25 MCG in SYRINGE 0 ML IV SCH (09:00)
[2018-07-04] MEDS: AZITHROMYCIN 250 MG in DEXTROSE 5% 250 ML IV SCH (09:13)
[2018-07-04] MEDS: INSULIN ASPART 100 UNITS/ML 3 ML PEN SC SCH ×4 (09:14→21:10)
--- NOTE | 2018-07-04 09:52 | Hospitalist Progress Note ---
Date of Service July 04, 2018 Assessment & Plan (1) COPD exacerbation: acute on chronic respiratory failure secondary to mucoid impaction in a patient with advanced COPD COPD gold level 3, possible acute COPD exacerbation home O2 dependent at 3.5 L/min Cor pulmonale with hypercapnia -on admission on 07/04/18; patient was in acute on chronic respiratory failure and concerns that patient may require intubation with reports from ED provider that attempts to place on BIPAP was not successful as patient's face could not make tight seal with smallest possible BIPAP mask. Patient was in the ED on oxygen mask of 5 liter/minute and appeared to have labored breathing in the ED. Patient had received solumedrol in the ED and plans were to continue patient on nebulizer treatments while awaiting further evaluation in the intensive care unit. While in the intensive care unit, patient has further spells of coughing and then after bout of coughing her breathing was reported to be improved. As per ICU/pulmonary physician patient likely had mucous plug that cleared and allowed for improvements of respiratory symptoms and that patient likely does not need further admission to the ICU. -patient downgraded to telemetry status on 07/04/18 as same day of admission; as per ICU physician patient has compensated respiratory acidosis with metabolic alkalosis -Continue bronchodilators on a standing basis -Continue with azithromycin (started on 07/03/18 for COPD) -transition from Solumedrol to prednisone 40 mg p.o. daily for 5 days -continue oxygen supplementation Because of concern for mucous plugs, patient is on aspiration precautions As per nurse, patient passed the dysphagia screening continue with full speech and swallow evaluation for now will transition to liquid diet pending further speech and swallow recommendations (2) Elevated troponin: Non-ST elevation DE, type II due to respiratory distress. -Patient does not have chest pain but mild elevations in troponins likely due to previous increased work of breathing -Troponins stable 0.138 to 0.140 -echocardiogram ordered -Tachycardia has improved with better respiratory status (3) Hypothyroidism: TSH 0.755 had IV Levothyroxine 25 mcg on 07/03/18 resume home dose oral Levothyroxine 50 mcg (4) Essential hypertension: will resume home dose lisinopril 10 mg daily (5) Ulcerative colitis: no active flare hold home dose mesalamine for now Patient's code status as per patient and confirmed by family member (her son Hola by phone [phone]) of DO NOT RESUCITATE AND DO NOT INTUBATE. Patient's grandson available locally ([phone]) Subjective I have seen and examined the patient and patient continues to be on nasal cannula with higher than baseline oxygen requirement. However, her respiratory rate is normal. She does not have labored breathing. She is pleasant and would like to eat. As per nurse, patient passed the dysphagia screening Patient denies acute pain. No vomiting. No lightheadedness. Physical Exam Vital Signs (Past 24 Hours): Last Vital Signs Temp 36.5 C 07/04/18 04:01 Pulse 95 H 07/04/18 07:38 Resp 17 07/04/18 07:38 BP 164/87 H 07/04/18 06:01 Pulse Ox 99 07/04/18 07:38 Constitutional: + thin Eyes: PERRL, conjunctivae normal, anicteric sclerae EOM intact bilaterally ENMT: external ear and nose normal, oropharynx normal Respiratory: normal respiratory effort, lungs clear to auscultation Cardiovascular: Rate/Rhythm: regular rate and regular rhythm Gastrointestinal (Abdomen): normal bowel sounds, soft, nontender, no hepatosplenomegaly Musculoskeletal: Head/Neck/Chest: normocephalic and head atraumatic Neurologic: PERRL, EOMI, accommodation nl, no face palsy, no dysarthria CN's II-XI intact bilaterally Psychiatric: A+Ox3, euthymic affect
[2018-07-04] MEDS: LISINOPRIL 10 MG TAB PO SCH (11:40)
[2018-07-04 14:54] LABS: Appearance Urine Clear (Clear); Bilirubin Urine Negative (Negative); Blood Urine Trace (Negative); Color Urine Yellow; Glucose Urine UA 1+ (Negative); Ketones Urine Negative (Negative); Leukocyte Esterase Urine Trace (Negative); Nitrite Urine Positive (Negative); Protein Urine 1+ (Negative); Specific Gravity Urine 1.009 (1.000-1.030); Urobilinogen Urine Negative (Negative)
[2018-07-04 15:37] LABS: Bacteria Urine 2+ (Negative); Epithelial Cell Urine >30 /lpf (0-5); WBC Urine >30 /hpf (0-5)
[2018-07-04] MEDS: HEPARIN SOD 5,000 UNIT/0.5 ML VIAL SQ SCH (21:36)
[2018-07-05] MEDS: ALBUT/IPRATROP 3MG/0.5MG NEB 3 ML VIAL NEB SCH ×4 (04:47→15:11)
[2018-07-05] MEDS: LEVOTHYROXINE SODIUM 50 MCG TABLET PO SCH (05:50)
[2018-07-05 07:05] LABS: Estimated Average Glucose 117 mg/dl; Hemoglobin A1C 5.7 % (4.5-5.6)
[2018-07-05] MEDS: HEPARIN SOD 5,000 UNIT/0.5 ML VIAL SQ SCH ×2 (08:40→21:12)
[2018-07-05] MEDS: INSULIN ASPART 100 UNITS/ML 3 ML PEN SC SCH ×4 (08:45→21:15)
[2018-07-05] MEDS: AZITHROMYCIN 250 MG in DEXTROSE 5% 250 ML IV SCH (08:46)
[2018-07-05] MEDS: LISINOPRIL 10 MG TAB PO SCH (08:56)
[2018-07-05] MEDS: predniSONE 20 MG TAB PO SCH (08:56)
[2018-07-05] MEDS ORDERED: CARVEDILOL 3.125 MG TAB PO ONE (18:14)
--- NOTE | 2018-07-05 18:15 | Hospitalist Progress Note ---
Date of Service July 05, 2018 Assessment & Plan (1) COPD exacerbation: acute on chronic respiratory failure secondary to mucoid impaction in a patient with advanced COPD COPD gold level 3, possible acute COPD exacerbation home O2 dependent at 3.5 L/min Cor pulmonale with hypercapnia -on admission on 07/04/18; patient was in acute on chronic respiratory failure and concerns that patient may require intubation with reports from ED provider that attempts to place on BIPAP was not successful as patient's face could not make tight seal with smallest possible BIPAP mask. Patient was in the ED on oxygen mask of 5 liter/minute and appeared to have labored breathing in the ED. Patient had received solumedrol in the ED and plans were to continue patient on nebulizer treatments while awaiting further evaluation in the intensive care unit. While in the intensive care unit, patient has further spells of coughing and then after bout of coughing her breathing was reported to be improved. As per ICU/pulmonary physician patient likely had mucous plug that cleared and allowed for improvements of respiratory symptoms and that patient likely does not need further admission to the ICU. -patient downgraded to telemetry status on 07/04/18 as same day of admission; as per ICU physician patient has compensated respiratory acidosis with metabolic alkalosis -Continue bronchodilators on a prn basis; restart home Advair -Continue with azithromycin (started on 07/03/18 for COPD) -transitioned from Solumedrol to prednisone 40 mg p.o. daily, continue prednisone for total of 5 days -continue oxygen supplementation which is currently at home baseline Because of concern for mucous plugs, patient was on aspiration precautions was evaluated by speech and swallow services on soft bite sized diet (2) Elevated troponin: Patient had elevated troponins due to respiratory distress on admission -Troponins stable 0.140 to 0.138 to 0.121 between 07/03/18 to 07/04/18 -echocardiogram on 07/04/18 did not find evidence of to support myocardial infraction as a diagnosis; the ejection fraction is normal between 55 to 60% and no left ventricular wall motion abnormalities -Tachycardia has improved with better respiratory status -will give low dose carvedilol 3.125 mg BID for better heart rate and blood pressure control (3) Hypothyroidism: TSH 0.755 had IV Levothyroxine 25 mcg on 07/03/18 continue home dose oral Levothyroxine 50 mcg (4) Essential hypertension: continue home dose lisinopril 10 mg daily (5) Ulcerative colitis: no active flare hold home dose mesalamine for now Patient's code status as per patient and confirmed by family member (her son Hola by phone [phone]) of DO NOT RESUCITATE AND DO NOT INTUBATE. Patient's grandson available locally ([phone]) Disposition: Patient considered to be a fall risk as per PT/OT evaluations, initial hesitancy by patient for physical rehabilitation or penitentiary plac ement after discussions with patient and her family by phone [phone] the patient is more agreeable to placement options Subjective Patient considered to be a fall risk as per PT/OT evaluations, initial hesitancy by patient for physical rehabilitation or penitentiary placement after discussions with patient and her family by phone [phone] the patient is more agreeable to placement options Patient otherwise breathing at baseline on nasal cannula. her voice sounded a little hoarse in the evening and will continue to monitor. Patient denies pain or chest or elsewhere Physical Exam Vital Signs (Past 24 Hours): Last Vital Signs Temp 36.4 C L 07/05/18 15:13 Pulse 109 H 07/05/18 15:16 Resp 16 07/05/18 15:13 BP 124/65 07/05/18 15:13 Pulse Ox 97 07/05/18 15:13 Constitutional: + thin Eyes: PERRL, conjunctivae normal, anicteric sclerae EOM intact bilaterally ENMT: external ear and nose normal, oropharynx normal Respiratory: normal respiratory effort, lungs clear to auscultation Cardiovascular: Rate/Rhythm: regular rate and regular rhythm Gastrointestinal (Abdomen): normal bowel sounds, soft, nontender, no hepatosplenomegaly Musculoskeletal: Head/Neck/Chest: normocephalic and head atraumatic Neurologic: PERRL, EOMI, accommodation nl, no face palsy, no dysarthria CN's II-XI intact bilaterally Psychiatric: A+Ox3, euthymic affect
[2018-07-05] MEDS ORDERED: ALBUT/IPRATROP 3MG/0.5MG NEB 3 ML VIAL NEB PRN (18:24)
[2018-07-05] MEDS: FLUTICASONE/SALMETEROL 250/50 (ADVAIR) 14 PUFF/1 INHALER INH SCH (21:10)
[2018-07-05] MEDS ORDERED: LORazepam 0.5 MG TAB PO STA (21:23)
[2018-07-06] MEDS: LEVOTHYROXINE SODIUM 50 MCG TABLET PO SCH (05:37)
[2018-07-06] MEDS: FLUTICASONE/SALMETEROL 250/50 (ADVAIR) 14 PUFF/1 INHALER INH SCH ×2 (07:46→20:36)
[2018-07-06] MEDS: LISINOPRIL 10 MG TAB PO SCH (07:48)
[2018-07-06] MEDS: HEPARIN SOD 5,000 UNIT/0.5 ML VIAL SQ SCH ×2 (07:48→20:36)
[2018-07-06] MEDS: predniSONE 20 MG TAB PO SCH (07:48)
[2018-07-06] MEDS: CARVEDILOL 3.125 MG TAB PO SCH ×2 (07:48→20:36)
[2018-07-06] MEDS ORDERED: LEVALBUTEROL HCL 1.25 MG/3 ML NEB NEB STA (10:55)
[2018-07-06] MEDS: LEVALBUTEROL HCL 1.25 MG/3 ML NEB NEB SCH ×3 (11:08→19:52)
--- NOTE | 2018-07-06 11:47 | XRay Report ---
XR chest 1V portable CLINICAL HISTORY: rule out lung infiltrate dyspnea COMPARISON STUDY: 07/03/2018 FINDINGS: Increased pulmonary vasculature. Trace pleural fluid left lateral costophrenic angle. Poten tial superimposed infiltrative process left base. IMPRESSION: 1. Developing parenchymal infiltrate left base. 2. Small left pleural effusion. 3. Pulmonary vascular congestion. The above report was generated using voice recognition software. It may contain grammatical, syntax or spelling errors. Electronically signed by: Arturo Carrillo M.D. 07/06/2018 11:45 AM
[2018-07-06] MEDS: INSULIN ASPART 100 UNITS/ML 3 ML PEN SC SCH ×4 (12:14→20:35)
[2018-07-06] MEDS: AZITHROMYCIN 250 MG in DEXTROSE 5% 250 ML IV SCH (12:19)
[2018-07-06] MEDS: CLINDAMYCIN 600 MG in DEXTROSE 5% 50 ML IV SCH ×3 (15:13→22:33)
--- NOTE | 2018-07-06 17:13 | Hospitalist Progress Note ---
Date of Service July 06, 2018 Assessment & Plan (1) COPD exacerbation: acute on chronic respiratory failure secondary to mucoid impaction in a patient with advanced COPD COPD gold level 3, possible acute COPD exacerbation home O2 dependent at 3.5 L/min Cor pulmonale with hypercapnia -on admission on 07/04/18; patient was in acute on chronic respiratory failure and concerns that patient may require intubation with reports from ED provider that attempts to place on BIPAP was not successful as patient's face could not make tight seal with smallest possible BIPAP mask. Patient was in the ED on oxygen mask of 5 liter/minute and appeared to have labored breathing in the ED. Patient had received solumedrol in the ED and plans were to continue patient on nebulizer treatments while awaiting further evaluation in the intensive care unit. While in the intensive care unit, patient has further spells of coughing and then after bout of coughing her breathing was reported to be improved. As per ICU/pulmonary physician patient likely had mucous plug that cleared and allowed for improvements of respiratory symptoms and that patient likely does not need further admission to the ICU. -patient downgraded to telemetry status on 07/04/18 as same day of admission; as per ICU physician patient has compensated respiratory acidosis with metabolic alkalosis -Continue bronchodilators on a prn basis; restart home Advair -Continue with azithromycin (started on 07/03/18 for COPD) -continue prednisone -continue oxygen supplementation which is currently at home baseline -Because of concern for mucous plugs, patient was on aspiration precautions was evaluated by speech and swallow services on soft bite sized diet -however as of 07/06/18 Patient less talkative. Also noted to have more wheezes from left lung hendricks and CXR of more lower left lobe infiltrates. Patient received additional clindamycin as IV 600 mg q8 hours with current azithromycin for possible aspiration pneumonia. also chest percussion therapy. Patient will remain NPO for now. (2) Elevated troponin: Patient had elevated troponins due to respiratory distress on admission -Troponins stable 0.140 to 0.138 to 0.121 between 07/03/18 to 07/04/18 -echocardiogram on 07/04/18 did not find evidence of to support myocardial infraction as a diagnosis; the ejection fraction is normal between 55 to 60% and no left ventricular wall motion abnormalities -Tachycardia has improved with better respiratory status -on low dose carvedilol 3.125 mg BID for better heart rate and blood pressure control (3) Hypothyroidism: TSH 0.755 had IV Levothyroxine 25 mcg on 07/03/18 continue home dose oral Levothyroxine 50 mcg (4) Essential hypertension: continue home dose lisinopril 10 mg daily (5) Ulcerative colitis: no active flare hold home dose mesalamine for now Patient's code status as per patient and confirmed by family member (her son Hola by phone [phone]) of DO NOT RESUCITATE AND DO NOT INTUBATE. Patient's grandson available locally ([phone]) Disposition: Patient considered to be a fall risk as per PT/OT evaluations, initial hesitancy by patient for physical rehabilitation or group home placement after discussions with patient and her family by phone [phone] the patient is more agreeable to placement options Subjective Patient less talkative today. Also noted to have more wheezes from left lung hendricks and CXR of more lower left lobe infiltrates. Patient received additional clindamycin with current azithromycin for possible aspiration pneumonia. also chest percussion therapy. Patient will remain NPO for now. Patient follows commends and alert but she is less active today. denies acute pain Physical Exam Vital Signs (Past 24 Hours): Last Vital Signs Temp 36.4 C L 07/06/18 15:30 Pulse 98 H 07/06/18 15:44 Resp 15 07/06/18 15:30 BP 135/64 07/06/18 15:30 Pulse Ox 95 07/06/18 15:30 Constitutional: + thin Eyes: PERRL, conjunctivae normal, anicteric sclerae EOM intact bilaterally ENMT: external ear and nose normal, oropharynx normal Respiratory: left lower lung hendricks with wheezing has improved from this AM Cardiovascular: Rate/Rhythm: regular rate and regular rhythm Gastrointestinal (Abdomen): normal bowel sounds, soft, nontender, no hepatosplenomegaly Musculoskeletal: Head/Neck/Chest: normocephalic and head atraumatic Neurologic: PERRL, EOMI, accommodation nl, no face palsy, no dysarthria CN's II-XI intact bilaterally Psychiatric: A+Ox3, euthymic affect
[2018-07-06] MEDS: LORazepam 0.5 MG TAB PO PRN (21:49)
[2018-07-07] MEDS: LEVALBUTEROL HCL 1.25 MG/3 ML NEB NEB SCH ×4 (01:15→20:20)
[2018-07-07] MEDS: CLINDAMYCIN 600 MG in DEXTROSE 5% 50 ML IV SCH ×3 (06:24→22:50)
[2018-07-07] MEDS: LEVOTHYROXINE SODIUM 50 MCG TABLET PO SCH (06:24)
[2018-07-07 08:17] LABS: Hemoglobin 11.9 g/dL (12.0-16.0); Mean Corpuscular Hgb Conc 29.8 g/dL (32-36); Mean Corpuscular Volume 105.3 fL (80-100); Mean Platelet Volume 11.2 fL (7.4-10.4); Nucleated RBC # (auto) 0.06 K/uL (0-0); Nucleated RBC % (auto) 0.3 %; Platelet Count 326 K/uL (130-400); RDW Coefficient of Variation 13.1 % (11.5-14.5); RDW Standard Deviation 50.9 fL (36.4-46.3); White Blood Count 21.46 K/uL (4.8-10.8)
[2018-07-07 08:18] LABS: Base Excess VBG 15.2 mEq/L; HCO3 VBG 46 mmol/L; PCO2 VBG 93 mmHg (38-50); PO2 VBG 28 mmHg; pH VBG 7.31 (7.36-7.41)
[2018-07-07 08:20] LABS: Oxygen Saturation VBG < 60.0 %
[2018-07-07 08:35] LABS: Basophils % (auto) 0.9 %; Immature Granulocytes # (auto) 1.55 K/uL (0.00-0.02); Immature Granulocytes % (auto) 7.2 %; Lymphocytes # (auto) 1.67 K/uL (1.2-3.4); Lymphocytes % (auto) 7.8 %; Monocytes # (auto) 1.27 K/uL (0.11-0.59); Monocytes % (auto) 5.9 %; Neutrophils # (auto) 16.77 K/uL (1.4-6.5); Neutrophils % (auto) 78.2 %
[2018-07-07 08:45] LABS: Albumin Globulin Ratio 0.5 (0.9-2); Albumin Level 2.1 gm/dl (3.4-5.0); Bilirubin,Total 0.3 mg/dl (0.2-1); Est GFR (African American) 94.3; Est GFR (Non-African American) 81.4; Globulin 4.6 gm/dl (2.5-4.0); Magnesium 2.1 mg/dl (1.8-2.4); Potassium 3.4 mmol/L (3.5-5.1); Total Protein 6.7 gm/dl (6.4-8.2)
[2018-07-07] MEDS: HEPARIN SOD 5,000 UNIT/0.5 ML VIAL SQ SCH ×2 (10:59→21:20)
[2018-07-07] MEDS: FLUTICASONE/SALMETEROL 250/50 (ADVAIR) 14 PUFF/1 INHALER INH SCH ×2 (10:59→21:20)
[2018-07-07] MEDS: AZITHROMYCIN 250 MG in DEXTROSE 5% 250 ML IV SCH (12:25)
[2018-07-07] MEDS: INSULIN ASPART 100 UNITS/ML 3 ML PEN SC SCH ×4 (12:52→21:21)
[2018-07-07] MEDS: predniSONE 20 MG TAB PO SCH (13:04)
[2018-07-07] MEDS: LISINOPRIL 10 MG TAB PO SCH (13:05)
[2018-07-07] MEDS: CARVEDILOL 3.125 MG TAB PO SCH ×2 (13:05→21:20)
--- NOTE | 2018-07-07 16:45 | Hospitalist Progress Note ---
Date of Service July 07, 2018 Assessment & Plan (1) COPD exacerbation: acute on chronic respiratory failure secondary to mucoid impaction in a patient with advanced COPD COPD gold level 3, possible acute COPD exacerbation home O2 dependent at 3.5 L/min Cor pulmonale with hypercapnia -on admission on 07/04/18; patient was in acute on chronic respiratory failure and concerns that patient may require intubation with reports from ED provider that attempts to place on BIPAP was not successful as patient's face could not make tight seal with smallest possible BIPAP mask. Patient was in the ED on oxygen mask of 5 liter/minute and appeared to have labored breathing in the ED. Patient had received solumedrol in the ED and plans were to continue patient on nebulizer treatments while awaiting further evaluation in the intensive care unit. While in the intensive care unit, patient has further spells of coughing and then after bout of coughing her breathing was reported to be improved. As per ICU/pulmonary physician patient likely had mucous plug that cleared and allowed for improvements of respiratory symptoms and that patient likely does not need further admission to the ICU. -patient downgraded to telemetry status on 07/04/18 as same day of admission; as per ICU physician patient has compensated respiratory acidosis with metabolic alkalosis -Continue bronchodilators on a prn basis; restart home Advair -Continue with azithromycin (started on 07/03/18 for COPD) -continue prednisone -continue oxygen supplementation which is currently at home baseline -Because of concern for mucous plugs, patient was on aspiration precautions was evaluated by speech and swallow services on soft bite sized diet -however as of 07/06/18 Patient less talkative. Also noted to have more wheezes from left lung hendricks and CXR of more lower left lobe infiltrates. Patient received additional clindamycin as IV 600 mg q8 hours with current azithromycin for possible aspiration pneumonia. also chest percussion therapy. -07/07/17: speech and swallow evaluation recommends continue the diet of bite sized and thin liquids, unclear as to cause of the voice changes but patient not overtly choking the food; will continue IV clindamycin and azithromycin (2) Elevated troponin: Patient had elevated troponins due to respiratory distress on admission -Troponins stable 0.140 to 0.138 to 0.121 between 07/03/18 to 07/04/18 -echocardiogram on 3/20/19 did not find evidence of to support myocardial infraction as a diagnosis; the ejection fraction is normal between 55 to 60% and no left ventricular wall motion abnormalities -Tachycardia has improved with better respiratory status -on low dose carvedilol 3.125 mg BID for better heart rate and blood pressure control (3) Hypothyroidism: TSH 0.755 had IV Levothyroxine 25 mcg on 07/03/18 continue home dose oral Levothyroxine 50 mcg (4) Essential hypertension: continue home dose lisinopril 10 mg daily (5) Ulcerative colitis: no active flare hold home dose mesalamine for now Patient's code status as per patient and confirmed by family member (her son Hola by phone [phone]) of DO NOT RESUCITATE AND DO NOT INTUBATE. Patient's grandson available locally ([phone]) Disposition: Patient considered to be a fall risk as per PT/OT evaluations, initial hesitancy by patient for physical rehabilitation or assisted placement after discussions with patient and her family by phone [phone] the patient is more agreeable to placement options Subjective Patient still very soft speaking. However breathing sounds better. she was able to pass the speech evaluation. she is able to eat the diet. she denies pain Physical Exam Vital Signs (Past 24 Hours): Last Vital Signs Temp 36.4 C L 07/07/18 16:25 Pulse 90 07/07/18 16:25 Resp 22 07/07/18 16:25 BP 158/72 H 07/07/18 16:25 Pulse Ox 91 07/07/18 16:25 Constitutional: + thin Eyes: PERRL, conjunctivae normal, anicteric sclerae EOM intact bilaterally ENMT: external ear and nose normal, oropharynx normal Respiratory: normal respiratory effort, lungs clear to auscultation Cardiovascular: Rate/Rhythm: regular rate and regular rhythm Gastrointestinal (Abdomen): normal bowel sounds, soft, nontender, no hepatosplenomegaly Musculoskeletal: Head/Neck/Chest: normocephalic and head atraumatic Neurologic: PERRL, EOMI, accommodation nl, no face palsy, no dysarthria CN's II-XI intact bilaterally Psychiatric: A+Ox3, euthymic affect
[2018-07-07] MEDS: LORazepam 0.5 MG TAB PO PRN (21:19)
[2018-07-08] MEDS: LEVALBUTEROL HCL 1.25 MG/3 ML NEB NEB SCH ×2 (01:55→07:14)
[2018-07-08] MEDS: LEVOTHYROXINE SODIUM 50 MCG TABLET PO SCH (06:08)
[2018-07-08] MEDS: CLINDAMYCIN 600 MG in DEXTROSE 5% 50 ML IV SCH ×3 (06:08→23:04)
[2018-07-08] MEDS: POTASSIUM CHLORIDE / WTR 10 MEQ/100 ML PLCT IV SCH ×2 (07:48→09:01)
[2018-07-08] MEDS: LISINOPRIL 10 MG TAB PO SCH (07:59)
[2018-07-08] MEDS: FLUTICASONE/SALMETEROL 250/50 (ADVAIR) 14 PUFF/1 INHALER INH SCH ×2 (07:59→20:10)
[2018-07-08] MEDS: HEPARIN SOD 5,000 UNIT/0.5 ML VIAL SQ SCH ×2 (07:59→20:11)
[2018-07-08] MEDS: CARVEDILOL 3.125 MG TAB PO SCH ×2 (07:59→20:10)
[2018-07-08] MEDS: predniSONE 20 MG TAB PO SCH (07:59)
[2018-07-08] MEDS: INSULIN ASPART 100 UNITS/ML 3 ML PEN SC SCH ×4 (08:01→20:10)
--- NOTE | 2018-07-08 09:51 | Hospitalist Progress Note ---
Date of Service July 08, 2018 Assessment & Plan (1) COPD exacerbation: acute on chronic respiratory failure secondary to mucoid impaction in a patient with advanced COPD COPD gold level 3, possible acute COPD exacerbation home O2 dependent at 3.5 L/min Cor pulmonale with hypercapnia Aspiration Pneumonia -on admission on 07/04/18; patient was in acute on chronic respiratory failure and concerns that patient may require intubation with reports from ED provider that attempts to place on BIPAP was not successful as patient's face could not make tight seal with smallest possible BIPAP mask. Patient was in the ED on oxygen mask of 5 liter/minute and appeared to have labored breathing in the ED. Patient had received solumedrol in the ED and plans were to continue patient on nebulizer treatments while awaiting further evaluation in the intensive care unit. While in the intensive care unit, patient has further spells of coughing and then after bout of coughing her breathing was reported to be improved. As per ICU/pulmonary physician patient likely had mucous plug that cleared and allo wed for improvements of respiratory symptoms and that patient likely does not need further admission to the ICU. -patient downgraded to telemetry status on 07/04/18 as same day of admission; as per ICU physician patient has compensated respiratory acidosis with metabolic alkalosis -Continue bronchodilators on a prn basis; restart home Advair -Continue with azithromycin (started on 07/03/18 for COPD) -continue prednisone -continue oxygen supplementation which is currently at home baseline -Because of concern for mucous plugs, patient was on aspiration precautions was evaluated by speech and swallow services on soft bite sized diet -however as of 07/06/18 Patient less talkative. Also noted to have more wheezes from left lung hendricks and CXR of more lower left lobe infiltrates. Patient received additional clindamycin as IV 600 mg q8 hours with current azithromycin for possible aspiration pneumonia. also chest percussion therapy. -07/07/17: speech and swallow evaluation recommends continue the diet of bite sized and thin liquids, unclear as to cause of the voice changes but patient not overtly choking the food; will continue IV clindamycin and azithromycin -07/08/17: patient speaking somewhat louder today. will continue respiratory antibiotics, will plan on getting CXR on 07/09/18 to follow up lung infiltrates for aspiration pneumonia (2) Elevated troponin: Patient had elevated troponins due to respiratory distress on admission -Troponins stable 0.140 to 0.138 to 0.121 between 07/03/18 to 07/04/18 -echocardiogram on 07/04/18 did not find evidence of to support myocardial infraction as a diagnosis; the ejection fraction is normal between 55 to 60% and no left ventricular wall motion abnormalities -Tachycardia has improved with better respiratory status -on low dose carvedilol 3.125 mg BID for better heart rate and blood pressure control (3) Hypothyroidism: TSH 0.755 had IV Levothyroxine 25 mcg on 07/03/18 continue home dose oral Levothyroxine 50 mcg (4) Essential hypertension: continue home dose lisinopril 10 mg daily (5) Ulcerative colitis: no active flare hold home dose mesalamine for now Patient's code status as per patient and confirmed by family member (her son Hola by phone [phone]) of DO NOT RESUCITATE AND DO NOT INTUBATE. Patient's grandson available locally ([phone]) Disposition: Patient considered to be a fall risk as per PT/OT evaluations, initial hesitancy by patient for physical rehabilitation or long term placement after discussions with patient and her family by phone [phone] the patient is more agreeable to placement options Subjective Patient able to speak somewhat louder today but voice is still soft spoken. Patient on nasal cannula and no labored breathing. she is awake and alert. not in distress. denies acute pain Physical Exam Vital Signs (Past 24 Hours): Last Vital Signs Temp 36.5 C 07/08/18 07:07 Pulse 81 07/08/18 07:14 Resp 20 07/08/18 07:14 BP 163/80 H 07/08/18 07:07 Pulse Ox 95 07/08/18 07:14 Constitutional: + thin Eyes: PERRL, conjunctivae normal, anicteric sclerae EOM intact bilaterally ENMT: external ear and nose normal, oropharynx normal Respiratory: normal respiratory effort, lungs clear to auscultation Cardiovascular: Rate/Rhythm: regular rate and regular rhythm Gastrointestinal (Abdomen): normal bowel sounds, soft, nontender, no hepatosplenomegaly Musculoskeletal: Head/Neck/Chest: normocephalic and head atraumatic Neurologic: PERRL, EOMI, accommodation nl, no face palsy, no dysarthria CN's II-XI intact bilaterally Psychiatric: A+Ox3, euthymic affect
[2018-07-08] MEDS ORDERED: LEVALBUTEROL HCL 1.25 MG/3 ML NEB NEB PRN (10:13)
[2018-07-08] MEDS: AZITHROMYCIN 250 MG in DEXTROSE 5% 250 ML IV SCH (10:22)
[2018-07-08] MEDS: LORazepam 0.5 MG TAB PO PRN (20:10)
[2018-07-09] MEDS: LEVOTHYROXINE SODIUM 50 MCG TABLET PO SCH (06:11)
[2018-07-09] MEDS: CLINDAMYCIN 600 MG in DEXTROSE 5% 50 ML IV SCH ×3 (06:11→21:46)
[2018-07-09 08:09] LABS: Hematocrit (blood only) 43.4 % (37-47); Hemoglobin 13.1 g/dL (12.0-16.0); Mean Corpuscular Volume 105.9 fL (80-100); Mean Platelet Volume 11.6 fL (7.4-10.4); Nucleated RBC # (auto) 0.11 K/uL (0-0); Nucleated RBC % (auto) 0.4 %; Platelet Count 380 K/uL (130-400); RDW Standard Deviation 50.7 fL (36.4-46.3); White Blood Count 25.44 K/uL (4.8-10.8)
[2018-07-09] MEDS: HEPARIN SOD 5,000 UNIT/0.5 ML VIAL SQ SCH ×2 (08:19→20:18)
[2018-07-09] MEDS: LISINOPRIL 10 MG TAB PO SCH (08:20)
[2018-07-09] MEDS: FLUTICASONE/SALMETEROL 250/50 (ADVAIR) 14 PUFF/1 INHALER INH SCH ×2 (08:20→20:17)
[2018-07-09] MEDS: CARVEDILOL 3.125 MG TAB PO SCH ×2 (08:20→19:25)
[2018-07-09] MEDS: INSULIN ASPART 100 UNITS/ML 3 ML PEN SC SCH ×4 (08:21→20:18)
[2018-07-09] MEDS: AZITHROMYCIN 250 MG in DEXTROSE 5% 250 ML IV SCH (08:28)
[2018-07-09 08:32] LABS: Mean Corpuscular Hgb Conc 30.2 g/dL (32-36)
[2018-07-09 08:42] LABS: RBC Morphology Unremarkable
--- NOTE | 2018-07-09 08:45 | XRay Report ---
XR chest 2V routine CLINICAL HISTORY: Abnormal chest x-ray. Follow-up study. COMPARISON STUDY: July 06, 2018 FINDINGS: The cardiac and mediastinal contours remain stable. There are persistent bilateral intersti tial pulmonary opacities. Opacities in the right lateral lung base are slightly progressive and a sup erimposed acute inflammatory process must be considered. Underlying interstitial lung disease may be present. There may be an element of superimposed pulmonary vascular congestion.[ Trace effusions are suspected. IMPRESSION: 1. Persistent bilateral interstitial pulmonary opacities with increasing airspace opacity at the righ t lateral lung base Electronically signed by: Steven Bright M.D. 07/09/2018 8:44 AM
[2018-07-09 08:55] LABS: Albumin Globulin Ratio 0.5 (0.9-2); Albumin Level 2.3 gm/dl (3.4-5.0); BUN Creatinine Ratio 27.7 (10-20); Bilirubin,Total 0.2 mg/dl (0.2-1); Calcium 8.6 mg/dl (8.5-10.1); Creatinine Clr Calc Pharmacy 33.5 ml/min; Est GFR (African American) 80.3; Est GFR (Non-African American) 69.3; Potassium 3.5 mmol/L (3.5-5.1); Total Protein 7.3 gm/dl (6.4-8.2)
[2018-07-09 09:09] LABS: ALC (manual) 3.69 K/uL (1.2-3.4); Lymphocytes # (manual) 3.69 K/uL (1.2-3.4); Lymphocytes % (manual) 14.5 %; Macrocytosis Present; Metamyelocytes # (manual) 0.46 K/uL (0-0); Metamyelocytes % (manual) 1.8 %; Monocytes # (manual) 0.92 K/uL (0.11-0.59); Monocytes % (manual) 3.6 %; Myelocytes # (manual) 0.69 K/uL (0-0); Myelocytes % (manual) 2.7 %; Neutrophils % (manual) 77.4 %; Stomatocytes 1+
--- NOTE | 2018-07-09 12:22 | Fluoroscopy Report ---
FL video swallow HISTORY: Silent aspiration TECHNIQUE: Video fluoroscopic evaluation of swallowing was performed in the AP and lateral projection s by the speech pathology staff. FLUOROSCOPY TIME: 2 minutes. NUMBER OF FLUOROSCOPY IMAGES: 0 COMPARISON STUDY: None. FINDINGS: The patient was administered thin liquid barium. There was premature vallecular and pirifor m sinus leakage. There was penetration but no definite aspiration. When swallowing pudding and a crac ker with paste the swallowing function is within normal limits for age. IMPRESSION: 1. Penetration when swallowing thin liquids. No definite aspiration. 2. Please see the speech pathologist report for detailed findings and recommendations. Electronically signed by: Steven Bright M.D. 07/09/2018 12:20 PM
[2018-07-09] MEDS ORDERED: LOPERAMIDE HCL 2 MG CAP PO STA (16:19)
[2018-07-09] MEDS ORDERED: LOPERAMIDE HCL 2 MG CAP PO PRN (16:21)
[2018-07-09] MEDS ORDERED: LISINOPRIL 10 MG TAB PO STA (16:26)
--- NOTE | 2018-07-09 16:49 | Hospitalist Progress Note ---
Date of Service July 09, 2018 Assessment & Plan (1) COPD exacerbation: acute on chronic respiratory failure secondary to mucoid impaction in a patient with advanced COPD COPD gold level 3, possible acute COPD exacerbation home O2 dependent at 3.5 L/min Cor pulmonale with hypercapnia Aspiration Pneumonia -on admission on 07/04/18; patient was in acute on chronic respiratory failure and concerns that patient may require intubation with reports from ED provider that attempts to place on BIPAP was not successful as patient's face could not make tight seal with smallest possible BIPAP mask. Patient was in the ED on oxygen mask of 5 liter/minute and appeared to have labored breathing in the ED. Patient had received solumedrol in the ED and plans were to continue patient on nebulizer treatments while awaiting further evaluation in the intensive care unit. While in the intensive care unit, patient has further spells of coughing and then after bout of coughing her breathing was reported to be improved. As per ICU/pulmonary physician patient likely had mucous plug that cleared and allo wed for improvements of respiratory symptoms and that patient likely does not need further admission to the ICU. -patient downgraded to telemetry status on 07/04/18 as same day of admission; as per ICU physician patient has compensated respiratory acidosis with metabolic alkalosis -Continue bronchodilators on a prn basis; restart home Advair -Continue with azithromycin (started on 07/03/18 for COPD) -continue prednisone -continue oxygen supplementation which is currently at home baseline -Because of concern for mucous plugs, patient was on aspiration precautions was evaluated by speech and swallow services on soft bite sized diet -however as of 07/06/18 Patient less talkative. Also noted to have more wheezes from left lung hendricks and CXR of more lower left lobe infiltrates. Patient received additional clindamycin as IV 600 mg q8 hours with current azithromycin for possible aspiration pneumonia. also chest percussion therapy. -07/07/18: speech and swallow evaluation recommends continue the diet of bite sized and thin liquids, unclear as to cause of the voice changes but patient not overtly choking the food; will continue IV clindamycin and azithromycin -07/08/18: patient speaking somewhat louder today. will continue respiratory antibiotics -07/09/18: Video fluroscopy: The patient was administered thin liquid barium. There was premature vallecular and piriform sinus leakage. There was penetration but no definite aspiration. When swallowing pudding and a cracker with paste the swallowing function is within normal limits for age. Although the video fluroscopy did not identify definite aspiration, the CXR on 07/09/18 with increasing airspace opacity at the right lateral lung base and there is concern for aspiration pneumonia appears to have respiratory acidosis with compensated metabolic alkalosis 07/09/18 serum bicarbonate is 50, serum potassium is 3.5 will give IV fluids with potassium, will check lactic acid (2) Elevated troponin: Patient had elevated troponins due to respiratory distress on admission -Troponins stable 0.140 to 0.138 to 0.121 between 07/03/18 to 07/04/18 -echocardiogram on 07/04/18 did not find evidence of to support myocardial infraction as a diagnosis; the ejection fraction is normal between 55 to 60% and no left ventricular wall motion abnormalities -Tachycardia has improved with better respiratory status -on low dose carvedilol 3.125 mg BID for better heart rate and blood pressure control (3) Hypothyroidism: TSH 0.755 had IV Levothyroxine 25 mcg on 07/03/18 continue home dose oral Levothyroxine 50 mcg (4) Essential hypertension: increase lisinopril to 40 mg daily (5) Ulcerative colitis: History of ulcerative colitis Diarrhea and C.difficile negative, will give loperamide Patient's code status as per patient and confirmed by family member (her son Hola by phone [phone]) of DO NOT RESUCITATE AND DO NOT INTUBATE. Patient's grandson available locally ([phone]) Disposition: Patient considered to be a fall risk as per PT/OT evaluations, initial hesitancy by patient for physical rehabilitation or jail placement after discussions with patient and her family by phone [phone] the patient is more agreeable to placement options Subjective Patient is no acute distress. She is able to eat the meals by herself. patient on nasal cannula. she denies pain. has diarrhea as per nurse today Physical Exam Vital Signs (Past 24 Hours): Last Vital Signs Temp 36.4 C L 07/09/18 15:30 Pulse 77 07/09/18 15:30 Resp 16 07/09/18 15:30 BP 175/71 H 07/09/18 15:30 Pulse Ox 97 07/09/18 15:30 Constitutional: + thin Eyes: PERRL, conjunctivae normal, anicteric sclerae EOM intact bilaterally ENMT: external ear and nose normal, oropharynx normal Respiratory: normal respiratory effort, lungs clear to auscultation Cardiovascular: Rate/Rhythm: regular rate and regular rhythm Gastrointestinal (Abdomen): normal bowel sounds, soft, nontender, no hepatosplenomegaly Musculoskeletal: Head/Neck/Chest: normocephalic and head atraumatic Neurologic: PERRL, EOMI, accommodation nl, no face palsy, no dysarthria CN's II-XI intact bilaterally Psychiatric: A+Ox3, euthymic affect
[2018-07-09] MEDS: POTASSIUM CHLORIDE 10 MEQ in SODIUM CHLORIDE 0.9% 1000ML 1,000 ML IV SCH (16:59)
[2018-07-09] MEDS: LORazepam 0.5 MG TAB PO PRN (20:18)
[2018-07-10 05:46] LABS: Hematocrit (blood only) 40.8 % (37-47); Hemoglobin 12.4 g/dL (12.0-16.0); Mean Corpuscular Hgb Conc 30.4 g/dL (32-36); Mean Corpuscular Volume 104.1 fL (80-100); Mean Platelet Volume 11.2 fL (7.4-10.4); Nucleated RBC # (auto) 0.06 K/uL (0-0); Nucleated RBC % (auto) 0.3 %; Platelet Count 352 K/uL (130-400); RDW Coefficient of Variation 13.1 % (11.5-14.5); RDW Standard Deviation 49.3 fL (36.4-46.3); Red Blood Count 3.92 M/uL (4.2-5.4); White Blood Count 18.54 K/uL (4.8-10.8)
[2018-07-10 05:50] LABS: Base Excess VBG 21.7 mEq/L; Oxygen Saturation VBG 89.2 %; pH VBG 7.43 (7.36-7.41)
[2018-07-10] MEDS: LEVOTHYROXINE SODIUM 50 MCG TABLET PO SCH (05:52)
[2018-07-10] MEDS: POTASSIUM CHLORIDE 10 MEQ in SODIUM CHLORIDE 0.9% 1000ML 1,000 ML IV SCH (05:52)
[2018-07-10] MEDS: CLINDAMYCIN 600 MG in DEXTROSE 5% 50 ML IV SCH (05:54)
[2018-07-10 06:22] LABS: ALC (manual) 1.91 K/uL (1.2-3.4); Lymphocytes # (manual) 1.91 K/uL (1.2-3.4); Lymphocytes % (manual) 10.3 %; Metamyelocytes # (manual) 0.32 K/uL (0-0); Metamyelocytes % (manual) 1.7 %; Monocytes # (manual) 0.48 K/uL (0.11-0.59); Monocytes % (manual) 2.6 %; Myelocytes # (manual) 1.45 K/uL (0-0); Myelocytes % (manual) 7.8 %; Neutrophils % (manual) 77.6 %; Stomatocytes 1+
[2018-07-10 06:45] LABS: Albumin Globulin Ratio 0.4 (0.9-2); Albumin Level 2.1 gm/dl (3.4-5.0); BUN Creatinine Ratio 22.1 (10-20); Bilirubin,Total 0.2 mg/dl (0.2-1); Calcium 8.5 mg/dl (8.5-10.1); Creatinine Clr Calc Pharmacy 56.1 ml/min; Est GFR (African American) 103.7; Est GFR (Non-African American) 89.4; Globulin 4.7 gm/dl (2.5-4.0); Magnesium 1.5 mg/dl (1.8-2.4); Potassium 3.3 mmol/L (3.5-5.1); Total Protein 6.8 gm/dl (6.4-8.2)
[2018-07-10] MEDS: INSULIN ASPART 100 UNITS/ML 3 ML PEN SC SCH ×4 (07:41→20:14)
[2018-07-10] MEDS ORDERED: MAGNESIUM OXIDE 400 MG TAB PO ONE (08:00)
[2018-07-10] MEDS: FLUTICASONE/SALMETEROL 250/50 (ADVAIR) 14 PUFF/1 INHALER INH SCH ×2 (08:40→20:14)
[2018-07-10] MEDS: CARVEDILOL 3.125 MG TAB PO SCH ×2 (08:40→20:15)
[2018-07-10] MEDS: LISINOPRIL 40 MG TAB PO SCH (08:41)
[2018-07-10] MEDS: HEPARIN SOD 5,000 UNIT/0.5 ML VIAL SQ SCH ×2 (08:41→20:15)
[2018-07-10] MEDS: MAGNESIUM SULFATE / D5W 1 GM/100 ML BAG IV SCH ×3 (08:44→11:34)
[2018-07-10 12:45] LABS: BUN Creatinine Ratio 17.2 (10-20); Blood Urea Nitrogen 9 mg/dl (7-18); Calcium 8.2 mg/dl (8.5-10.1); Carbon Dioxide 42 mmol/L (21-32); Chloride 92 mmol/L (98-107); Est GFR (African American) 99.1; Est GFR (Non-African American) 85.5; Glucose 134 mg/dl (70-99); Sodium 137 mmol/L (136-145)
[2018-07-10 13:24] LABS: Potassium 3.4 mmol/L (3.5-5.1)
[2018-07-10 13:26] LABS: Magnesium 3.7 mg/dl (1.8-2.4)
--- NOTE | 2018-07-10 13:44 | Hospitalist Progress Note ---
Date of Service July 10, 2018 Assessment & Plan (1) COPD exacerbation: acute on chronic respiratory failure secondary to mucoid impaction in a patient with advanced COPD COPD gold level 3, possible acute COPD exacerbation home O2 dependent at 3.5 L/min Cor pulmonale with hypercapnia Aspiration Pneumonia -on admission on 07/04/18; patient was in acute on chronic respiratory failure and concerns that patient may require intubation with reports from ED provider that attempts to place on BIPAP was not successful as patient's face could not make tight seal with smallest possible BIPAP mask. Patient was in the ED on oxygen mask of 5 liter/minute and appeared to have labored breathing in the ED. Patient had received solumedrol in the ED and plans were to continue patient on nebulizer treatments while awaiting further evaluation in the intensive care unit. While in the intensive care unit, patient has further spells of coughing and then after bout of coughing her breathing was reported to be improved. As per ICU/pulmonary physician patient likely had mucous plug that cleared and allo wed for improvements of respiratory symptoms and that patient likely does not need further admission to the ICU. -patient downgraded to telemetry status on 07/04/18 as same day of admission; as per ICU physician patient has compensated respiratory acidosis with metabolic alkalosis -Continue bronchodilators on a prn basis; restart home Advair -Continue with azithromycin (started on 07/03/18 for COPD) -continue prednisone -continue oxygen supplementation which is currently at home baseline -Because of concern for mucous plugs, patient was on aspiration precautions was evaluated by speech and swallow services on soft bite sized diet -however as of 07/06/18 Patient less talkative. Also noted to have more wheezes from left lung hendricks and CXR of more lower left lobe infiltrates. Patient received additional clindamycin as IV 600 mg q8 hours with current azithromycin for possible aspiration pneumonia. also chest percussion therapy. -07/07/18: speech and swallow evaluation recommends continue the diet of bite sized and thin liquids, unclear as to cause of the voice changes but patient not overtly choking the food; will continue IV clindamycin and azithromycin -07/08/18: patient speaking somewhat louder today. will continue respiratory antibiotics -07/09/18: Video fluroscopy: The patient was administered thin liquid barium. There was premature vallecular and piriform sinus leakage. There was penetration but no definite aspiration. When swallowing pudding and a cracker with paste the swallowing function is within normal limits for age. Although the video fluroscopy did not identify definite aspiration, the CXR on 07/09/18 with increasing airspace opacity at the right lateral lung base and there is concern that patient has had previously aspirated for pneumonia -07/10/18 since patient appears to be tolerating oral medications well and speaking at baseline volume, will attempt to transition to oral clindamycin and oral azithromycin has respiratory acidosis with metabolic alkalosis serum bicarbonate downtrended as 42 on 07/10/18 after IV fluids Hypomagnesemia serum 1.5 on 07/10/18 and serum magnesium repeleted mild Hypokalemia given additional potassium with IV and oral supplements consider daily potassium supplement tabs when medically ready for discharge (2) Elevated troponin: Patient had elevated troponins due to respiratory distress on admission -Troponins stable 0.140 to 0.138 to 0.121 between 07/03/18 to 07/04/18 -echocardiogram on 07/04/18 did not find evidence of to support myocardial infraction as a diagnosis; the ejection fraction is normal between 55 to 60% and no left ventricular wall motion abnormalities -Tachycardia has improved with better respiratory status -on low dose carvedilol 3.125 mg BID for better heart rate and blood pressure control (3) Hypothyroidism: TSH 0.755 had IV Levothyroxine 25 mcg on 07/03/18 continue home dose oral Levothyroxine 50 mcg (4) Essential hypertension: increase lisinopril to 40 mg daily (5) Ulcerative colitis: History of ulcerative colitis Diarrhea and C.difficile negative, give loperamide prn for diarrhea Patient's code status as per patient and confirmed by family member (her son Hola by phone [phone]) of DO NOT RESUCITATE AND DO NOT INTUBATE. 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 eating well. no vomiting. denies shortness of breath of chest pain Physical Exam Vital Signs (Past 24 Hours): Last Vital Signs Temp 37.0 C 07/10/18 11:47 Pulse 78 07/10/18 11:47 Resp 16 07/10/18 11:47 BP 133/75 07/10/18 11:47 Pulse Ox 90 07/10/18 11:47 Constitutional: + thin Eyes: PERRL, conjunctivae normal, anicteric sclerae EOM intact bilaterally ENMT: external ear and nose normal, oropharynx normal Respiratory: normal respiratory effort, lungs clear to auscultation Cardiovascular: Rate/Rhythm: regular rate and regular rhythm Gastrointestinal (Abdomen): normal bowel sounds, soft, nontender, no hepatosplenomegaly Musculoskeletal: Head/Neck/Chest: normocephalic and head atraumatic Neurologic: PERRL, EOMI, accommodation nl, no face palsy, no dysarthria CN's II-XI intact bilaterally Psychiatric: A+Ox3, euthymic affect
[2018-07-10] MEDS ORDERED: POTASSIUM CHLORIDE 20 MEQ TABCR PO SCH (14:00)
[2018-07-10] MEDS: AZITHROMYCIN 250 MG TAB PO SCH (15:24)
[2018-07-10] MEDS: CLINDAMYCIN HCL 150 MG CAP PO SCH ×2 (15:25→20:16)
[2018-07-10] MEDS: LORazepam 0.5 MG TAB PO PRN (20:15)
[2018-07-11] MEDS: LEVOTHYROXINE SODIUM 50 MCG TABLET PO SCH (05:45)
[2018-07-11] MEDS: FLUTICASONE/SALMETEROL 250/50 (ADVAIR) 14 PUFF/1 INHALER INH SCH (07:48)
[2018-07-11] MEDS: AZITHROMYCIN 250 MG TAB PO SCH (07:48)
[2018-07-11] MEDS: INSULIN ASPART 100 UNITS/ML 3 ML PEN SC SCH ×2 (07:48→12:38)
[2018-07-11] MEDS: CARVEDILOL 3.125 MG TAB PO SCH (07:49)
[2018-07-11] MEDS: LISINOPRIL 40 MG TAB PO SCH (07:49)
[2018-07-11] MEDS: CLINDAMYCIN HCL 150 MG CAP PO SCH ×2 (07:49→12:38)
[2018-07-11] MEDS: HEPARIN SOD 5,000 UNIT/0.5 ML VIAL SQ SCH (07:50)
[2018-07-11 08:44] LABS: BUN Creatinine Ratio 14.4 (10-20); Calcium 8.6 mg/dl (8.5-10.1); Creatinine Clr Calc Pharmacy 46.5 ml/min; Est GFR (African American) 97.4; Magnesium 2.5 mg/dl (1.8-2.4); Potassium 3.9 mmol/L (3.5-5.1)
[2018-07-11] MEDS ORDERED: MAGNESIUM OXIDE 400 MG TAB PO SCH (09:00)
--- NOTE | 2018-07-11 10:58 | Hospitalist Progress Note ---
Date of Service July 11, 2018 Assessment & Plan (1) COPD exacerbation: acute on chronic respiratory failure secondary to mucoid impaction in a patient with advanced COPD COPD gold level 3, possible acute COPD exacerbation home O2 dependent at 3.5 L/min Cor pulmonale with hypercapnia Aspiration Pneumonia -on admission on 07/04/18; patient was in acute on chronic respiratory failure and concerns that patient may require intubation with reports from ED provider that attempts to place on BIPAP was not successful as patient's face could not make tight seal with smallest possible BIPAP mask. Patient was in the ED on oxygen mask of 5 liter/minute and appeared to have labored breathing in the ED. Patient had received solumedrol in the ED and plans were to continue patient on nebulizer treatments while awaiting further evaluation in the intensive care unit. While in the intensive care unit, patient has further spells of coughing and then after bout of coughing her breathing was reported to be improved. As per ICU/pulmonary physician patient likely had mucous plug that cleared and allo wed for improvements of respiratory symptoms and that patient likely does not need further admission to the ICU. -patient downgraded to telemetry status on 07/04/18 as same day of admission; as per ICU physician patient has compensated respiratory acidosis with metabolic alkalosis -Continue bronchodilators on a prn basis; restart home Advair -Continue with azithromycin (started on 07/03/18 for COPD) -continue prednisone -continue oxygen supplementation which is currently at home baseline -Because of concern for mucous plugs, patient was on aspiration precautions was evaluated by speech and swallow services on soft bite sized diet -however as of 07/06/18 Patient less talkative. Also noted to have more wheezes from left lung hendricks and CXR of more lower left lobe infiltrates. Patient received additional clindamycin as IV 600 mg q8 hours with current azithromycin for possible aspiration pneumonia. also chest percussion therapy. -07/07/18: speech and swallow evaluation recommends continue the diet of bite sized and thin liquids, unclear as to cause of the voice changes but patient not overtly choking the food; will continue IV clindamycin and azithromycin -07/08/18: patient speaking somewhat louder today. will continue respiratory antibiotics -07/09/18: Video fluroscopy: The patient was administered thin liquid barium. There was premature vallecular and piriform sinus leakage. There was penetration but no definite aspiration. When swallowing pudding and a cracker with paste the swallowing function is within normal limits for age. Although the video fluroscopy did not identify definite aspiration, the CXR on 07/09/18 with increasing airspace opacity at the right lateral lung base and there is concern that patient has had previously aspirated for pneumonia -07/10/18 since patient appears to be tolerating oral medications well and speaking at baseline volume, will attempt to transition to oral clindamycin and oral azithromycin Patient to be discharge to [facility] Patient will need to follow up with primary medical doctor at nursing facility or with her listed primary care doctor Dr. Phyllis Gray who is on Address: [address] [place] [address] [address], [place] [address] Patient's lab work is notable is for elevated HCO2 due to respiratory acidosis and compensated metabolic alkalosis These acid base abnormalities are from aspiration pneumonia of right lung Patient has aspiration pneumonia of right lung but tolerating orals ok at this time Patient will need to complete 7 more days of clindamycin and azithromycin and have chest X ray repeated as outpatient When pneumonia has resolved patient may need referral to ENT clinic or Gastroenterology service for further exploration of possible esophageal dysmotility versus vocal cord dysfunction Speech and Swallow service recommendations for aspiration and reflux precautions Aspiration Precautions -alternate solids and liquids -Fully alert and Upright -Single bitess/small sips/slow rate -No straw Reflux Precautions -alternate solids and liquids -head of bed 30 degrees all times -slippery diet -small frequent meals -upright with meals for greater than 30 minute (2) Elevated troponin: Patient had elevated troponins due to respiratory distress on admission -Troponins stable 0.140 to 0.138 to 0.121 between 07/03/18 to 07/04/18 -echocardiogram on 07/04/18 did not find evidence of to support myocardial infraction as a diagnosis; the ejection fraction is normal between 55 to 60% and no left ventricular wall motion abnormalities -Tachycardia has improved with better respiratory status -on low dose carvedilol 3.125 mg BID for better heart rate and blood pressure control, continue (3) Hypothyroidism: TSH 0.755 had IV Levothyroxine 25 mcg on 07/03/18 continue home dose oral Levothyroxine 50 mcg Hypomagnesemia serum 1.5 on 07/10/18 and serum magnesium repeleted normal serum magnesium 2.4 level on discharge day mild Hypokalemia given additional potassium with IV and oral supplements and current serum serum potassium normal at 3.9 on discharge day (4) Essential hypertension: continue the increased dose of lisinopril to 40 mg daily continue carvedilol (5) Ulcerative colitis: History of ulcerative colitis Diarrhea and C.difficile negative, give loperamide prn for diarrhea Patient's code status as per patient and confirmed by family member (her son Hola by phone [phone]) of DO NOT RESUCITATE AND DO NOT INTUBATE. Patient's grandson available locally ([phone]) Discharge Diagnosis acute on chronic respiratory failure secondary to mucoid impaction in a patient with advanced COPD, aspiration pneumonia of right lung, respiratory acidosis and compensated metabolic alkalosis, Essential hypertension, Tachycardia (resolved), elevated troponins on admission from respiratory distress, Hypothyroidism, Hypokalemia and Hypomagnesemia resolved Discharge Instructions Patient to be discharge to [facility] Patient will need to follow up with primary medical doctor at nursing facility or with her listed primary care doctor Dr. Phyllis Gray who is on Address: [address] [place] [address] [address], [place] [address] Patient's lab work is notable is for elevated HCO2 due to respiratory acidosis and compensated metabolic alkalosis These acid base abnormalities are from aspiration pneumonia of right lung Patient has aspiration pneumonia of right lung but tolerating orals ok at this time Patient will need to complete 7 more days of clindamycin and azithromycin and have chest X ray repeated as outpatient When pneumonia has resolved patient may need referral to ENT clinic or Gastroenterology service for further exploration of possible esophageal dysmotility versus vocal cord dysfunction Speech and Swallow service recommendations for aspiration and reflux precautions Aspiration Precautions -alternate solids and liquids -Fully alert and Upright -Single bitess/small sips/slow rate -No straw Reflux Precautions -alternate solids and liquids -head of bed 30 degrees all times -slippery diet -small frequent meals -upright with meals for greater than 30 minutes Subjective Patient with with no respiratory distress. breathing comfortably. responds to questions. denies choking on food or the pills. Nurse does not report any choking episodes. denies chest pain or abdominal pain. no vomiting. speeaking well Physical Exam Vital Signs (Past 24 Hours): Last Vital Signs Temp 36.5 C 07/11/18 10:41 Pulse 101 H 07/11/18 10:41 Resp 20 07/11/18 10:41 BP 170/81 H 07/11/18 10:41 Pulse Ox 93 07/11/18 10:41 Constitutional: + thin Eyes: PERRL, conjunctivae normal, anicteric sclerae EOM intact bilaterally ENMT: external ear and nose normal, oropharynx normal Respiratory: normal respiratory effort, lungs clear to auscultation Cardiovascular: Rate/Rhythm: regular rate and regular rhythm Gastrointestinal (Abdomen): normal bowel sounds, soft, nontender, no hepatosplenomegaly Musculoskeletal: Head/Neck/Chest: normocephalic and head atraumatic Neurologic: PERRL, EOMI, accommodation nl, no face palsy, no dysarthria CN's II-XI intact bilaterally Psychiatric: A+Ox3, euthymic affect
--- NOTE | 2018-07-11 11:06 | Discharge Summary ---
Date of Service July 11, 2018 Admission HPI Per Admitting Provider 83 y/o female with a history of O2 dependent COPD, HTN, hypothyroidism, dyslipidemia and ulcerative colitis presented to the ED earlier today with progressive dyspnea. Pt lives at [facility] - when the home health aide came this morning, she apparently found patient more short of breath than usual so called EMS. In the ED, pt was found to be hypoxic. Initially, it was thought that patient would benefit from BiPAP but respiratory therapy was unable to find a mask that would fit her appropriately so instead she has been receiving O2 via OxyMask. Per nursing, there has been some improvement post-nebs and steroids but pt continues with increased oxygen demand and tachypnea. History from patient somewhat limited as she seemed to minimize symptoms or not recall history. She does report that her breathing has gradually worsened over the past 2-3 days, particularly since last night. She denies significant cough. She denies chest pain, palpitations, N/V, dizziness, fevers or chills. She is asking to go home today. Her son is her power of claims attorney but he lives outside the area - per the pt, he travels in an but is currently on his way to [place] from [place]. Admission Exam Per Admitting Provider Constitutional: + acute distress (respiratory - tachypneic), + ill appearing, + cachectic and + frail appearing Eyes: + anicteric sclerae; no corneal abnormality ENMT: OxyMask in place but frequently sliding up face Neck: trachea midline Respiratory: + respiratory distress, + labored breathing and + tachypneic (at ~32-36 breaths per minute); + not able to speak in complete sentence Auscultation: + diminished lung sounds and + wheezes (faint intermittently throughout); no rales and no rhonchi Cardiovascular: Rate/Rhythm: regular rhythm and + tachycardic Heart Sounds: no gallop and no cardiac rub Extremities: normal capillary refill; no calf tenderness and no pedal edema Gastrointestinal (Abdomen): Inspection/Auscultation: normal bowel sounds; abdomen not distended Percussion/Palpation: abdomen soft; abdomen nontender Musculoskeletal: Head/Neck/Chest: normocephalic and head atraumatic Extremities: no cyanosis Skin: no rashes and no jaundice Neurologic: moves all extremities and awake Psychiatric: Orientation: oriented x 3 Eye Contact: good eye contact Affect: + anxious affect Mood: + anxious mood Insight: + fair insight Principal Diagnosis acute on chronic respiratory failure secondary to mucoid impaction in a patient with advanced COPD, aspiration pneumonia of right lung, respiratory acidosis and compensated metabolic alkalosis, Essential hypertension, Tachycardia (resolved), elevated troponins on admission from respiratory distress, Hypothyroidism, Hypokalemia and Hypomagnesemia resolved Discharge Exam Constitutional + thin Eyes PERRL, conjunctivae normal, anicteric sclerae EOM intact bilaterally ENMT external ear and nose normal, oropharynx normal Respiratory normal respiratory effort, lungs clear to auscultation Cardiovascular Rate/Rhythm: regular rate and regular rhythm Gastrointestinal (Abdomen) normal bowel sounds, soft, nontender, no hepatosplenomegaly Musculoskeletal Head/Neck/Chest: normocephalic and head atraumatic Neurologic PERRL, EOMI, accommodation nl, no face palsy, no dysarthria CN's II-XI intact bilaterally Psychiatric A+Ox3, euthymic affect Discharge Data Allergies Allergy/AdvReac Type Severity Reaction Status Date / Time Penicillins Allergy Verified 07/03/18 15:38 Consultations 07/03/18 14:31 ED Decision to Admit Stat 07/03/18 16:55 Consult Case Management - Discharge Planning Routine Consult Landfill Grader Routine 07/03/18 17:33 Consult Case Management - Discharge Planning Routine Ordered Studies 07/09/18 11:45 FL video swallow Routine Hospital Course (1) COPD exacerbation: acute on chronic respiratory failure secondary to mucoid impaction in a patient with advanced COPD COPD gold level 3, possible acute COPD exacerbation home O2 dependent at 3.5 L/min Cor pulmonale with hypercapnia Aspiration Pneumonia -on admission on 07/04/18; patient was in acute on chronic respiratory failure and concerns that patient may require intubation with reports from ED provider that attempts to place on BIPAP was not successful as patient's face could not make tight seal with smallest possible BIPAP mask. Patient was in the ED on oxygen mask of 5 liter/minute and appeared to have labored breathing in the ED. Patient had received solumedrol in the ED and plans were to continue patient on nebulizer treatments while awaiting further evaluation in the intensive care unit. While in the intensive care unit, patient has further spells of coughing and then after bout of coughing her breathing was reported to be improved. As per ICU/pulmonary physician patient likely had mucous plug that cleared and allowed for improvements of respiratory symptoms and that patient likely does not need further admission to the ICU. -patient downgraded to telemetry status on 07/04/18 as same day of admission; as per ICU physician patient has compensated respiratory acidosis with metabolic alkalosis -Continue bronchodilators on a prn basis; restart home Advair -Continue with azithromycin (started on 07/03/18 for COPD) -continue prednisone -continue oxygen supplementation which is currently at home baseline -Because of concern for mucous plugs, patient was on aspiration precautions was evaluated by speech and swallow services on soft bite sized diet -however as of 07/06/18 Patient less talkative. Also noted to have more wheezes from left lung hendricks and CXR of more lower left lobe infiltrates. Patient received additional clindamycin as IV 600 mg q8 hours with current azithromycin for possible aspiration pneumonia. also chest percussion therapy. -07/07/18: speech and swallow evaluation recommends continue the diet of bite sized and thin liquids, unclear as to cause of the voice changes but patient not overtly choking the food; will continue IV clindamycin and azithromycin -07/08/18: patient speaking somewhat louder today. will continue respiratory antibiotics -07/09/18: Video fluroscopy: The patient was administered thin liquid barium. There was premature vallecular and piriform sinus leakage. There was penetration but no definite aspiration. When swallowing pudding and a cracker with paste the swallowing function is within normal limits for age. Although the video fluroscopy did not identify definite aspiration, the CXR on 07/09/18 with increasing airspace opacity at the right lateral lung base and there is concern that patient has had previously aspirated for pneumonia -07/10/18 since patient appears to be tolerating oral medications well and speaking at baseline volume, will attempt to transition to oral clindamycin and oral azithromycin Patient to be discharge to [facility] Patient will need to follow up with primary medical doctor at nursing facility or with her listed primary care doctor Dr. Phyllis Gray who is on Address: [address] [place] [address] [address], [place] [address] Patient's lab work is notable is for elevated HCO2 due to respiratory acidosis and compensated metabolic alkalosis These acid base abnormalities are from aspiration pneumonia of right lung Patient has aspiration pneumonia of right lung but tolerating orals ok at this time Patient will need to complete 7 more days of clindamycin and azithromycin and have chest X ray repeated as outpatient When pneumonia has resolved patient may need referral to ENT clinic or Gastroenterology service for further exploration of possible esophageal dysmotility versus vocal cord dysfunction Speech and Swallow service recommendations for aspiration and reflux precautions Aspiration Precautions -alternate solids and liquids -Fully alert and Upright -Single bitess/small sips/slow rate -No straw Reflux Precautions -alternate solids and liquids -head of bed 30 degrees all times -slippery diet -small frequent meals -upright with meals for greater than 30 minute (2) Elevated troponin: Patient had elevated troponins due to respiratory distress on admission -Troponins stable 0.140 to 0.138 to 0.121 between 07/03/18 to 07/04/18 -echocardiogram on 07/04/18 did not find evidence of to support myocardial infraction as a diagnosis; the ejection fraction is normal between 55 to 60% and no left ventricular wall motion abnormalities -Tachycardia has improved with better respiratory status -on low dose carvedilol 3.125 mg BID for better heart rate and blood pressure control, continue (3) Hypothyroidism: TSH 0.755 had IV Levothyroxine 25 mcg on 07/03/18 continue home dose oral Levothyroxine 50 mcg Hypomagnesemia serum 1.5 on 07/10/18 and serum magnesium repeleted normal serum magnesium 2.4 level on discharge day mild Hypokalemia given additional potassium with IV and oral supplements and current serum serum potassium normal at 3.9 on discharge day (4) Essential hypertension: continue the increased dose of lisinopril to 40 mg daily continue carvedilol (5) Ulcerative colitis: History of ulcerative colitis Diarrhea and C.difficile negative, give loperamide prn for diarrhea Patient's code status as per patient and confirmed by family member (her son Hola by phone [phone]) of DO NOT RESUCITATE AND DO NOT INTUBATE. Patient's grandson available locally ([phone]) Discharge Diagnosis acute on chronic respiratory failure secondary to mucoid impaction in a patient with advanced COPD, aspiration pneumonia of right lung, respiratory acidosis and compensated metabolic alkalosis, Essential hypertension, Tachycardia (resolved), elevated troponins on admission from respiratory distress, Hypothyroidism, Hypokalemia and Hypomagnesemia resolved Discharge Instructions Patient to be discharge to [facility] Patient will need to follow up with primary medical doctor at nursing [facility] or with her listed primary care doctor Dr. Phyllis Gray who is on Address: [address] [place] [address] [address], [place] [address] Patient's lab work is notable is for elevated HCO2 due to respiratory acidosis and compensated metabolic alkalosis These acid base abnormalities are from aspiration pneumonia of right lung Patient has aspiration pneumonia of right lung but tolerating orals ok at this time Patient will need to complete 7 more days of clindamycin and azithromycin and have chest X ray repeated as outpatient When pneumonia has resolved patient may need referral to ENT clinic or Gastroenterology service for further exploration of possible esophageal dysmotility versus vocal cord dysfunction Speech and Swallow service recommendations for aspiration and reflux precautions Aspiration Precautions -alternate solids and liquids -Fully alert and Upright -Single bitess/small sips/slow rate -No straw Reflux Precautions -alternate solids and liquids -head of bed 30 degrees all times -slippery diet -small frequent meals -upright with meals for greater than 30 minutes Total Time Total Time Spent Total Time Spent (In Minutes): 40 minutes Total Time Includes: Examination of the Patient, Discharge Planning and Medication Reconciliation Discharge Plan Discharge Items Patient Disposition: Transfer [facility] Reason For Visit: COPD EXACERBATION, HYPOXIA Discharge Diagnosis: acute on chronic respiratory failure secondary to mucoid impaction in a patient with advanced COPD, aspiration pneumonia of right lung, respiratory acidosis and compensated metabolic alkalosis, Essential hypertension, Tachycardia (resolved), elevated troponins on admission from respiratory distress, Hypothyroidism, Hypokalemia and Hypomagnesemia resolved Condition: Good Discharge Goals: Improve disease control Activity: Resume your previous activity Non-emergency contact: Primary Care Provider Follow-up/Referrals: Su Gray [Primary Care Provider] - Diet: Regular Diet Texture: Dental soft (bite-sized) Addtl Provider Instructions: Patient to be discharge to [facility] Patient will need to follow up with primary medical doctor at nursing [facility] or with her listed primary care doctor Dr. Phyllis Gray who is on Address: [address] [place] [address] [address], [place] [address] Patient's lab work is notable is for elevated HCO2 due to respiratory acidosis and compensated metabolic alkalosis These acid base abnormalities are from aspiration pneumonia of right lung Patient has aspiration pneumonia of right lung but tolerating orals ok at this time Patient will need to complete 7 more days of clindamycin and azithromycin and have chest X ray repeated as outpatient When pneumonia has resolved patient may need referral to ENT clinic or Gastroenterology service for further exploration of possible esophageal dysmot ility versus vocal cord dysfunction Speech and Swallow service recommendations for aspiration and reflux precautions Aspiration Precautions -alternate solids and liquids -Fully alert and Upright -Single bitess/small sips/slow rate -No straw Reflux Precautions -alternate solids and liquids -head of bed 30 degrees all times -slippery diet -small frequent meals -upright with meals for greater than 30 minutes Prescriptions: New fluticasone propion-salmeterol [Advair Diskus] 250-50 mcg/dose Blister With Device 1 puff Inhalation BID 30 Days Qty: 1 RF: 0 carvedilol 3.125 mg Tablet 3.125 mg PO BID 30 Days Qty: 60 RF: 0 lisinopril [Zestril] 40 mg Tablet 40 mg PO QAM 30 Days Qty: 30 RF: 0 azithromycin [Zithromax] 250 mg Tablet 250 mg PO QAM 7 Days Qty: 7 RF: 0 clindamycin HCl 150 mg Capsule 450 mg PO TID 7 Days Qty: 63 RF: 0 Continued fluticasone propion-salmeterol [Advair Diskus] 250-50 mcg/dose Blister With Device 1 inh INHALATION BID RF: 0 paroxetine HCl 10 mg Tablet 10 mg PO QDL RF: 0 ipratropium-albuterol 0.5 mg-3 mg(2.5 mg base)/3 mL Solution For Nebulization 3 ml INHALATION Q8H PRN (Reason: Shortness Of Breath Or Wheezing) RF: 0 raloxifene [Evista] 60 mg Tablet 60 mg PO QAM RF: 0 Apriso 0.375 gram Capsule,Extended Release 24hr 1.5 g PO QAM RF: 0 levothyroxine 50 mcg Capsule 50 mcg PO QAM RF: 0 lorazepam 0.5 mg tablet 0.5 mg PO UD PRN (Reason: Anxiety) RF: 0 Discontinued lisinopril 10 mg Tablet 10 mg PO QAM RF: 0 ferrous sulfate 325 mg (65 mg iron) Tablet,Delayed Release (Dr/Ec) 325 mg PO BID RF: 0 Stand-Alone Forms: [facility] Discharge Orders: Discharge Order (Routine); Ordered 07/11/18 Ordered By: Andrés Diaz Skilled Items Patient informed of condition?: Yes DNR: Yes Discharge Level of Care: Skilled Communicable Disease: No Discharge Prognosis: Stable Admission Data Admit Date/Time: 07/03/18 15:04 Attending Provider: J Luis Lutz Admit Provider: Andrés Diaz Primary Care Provider: Su Gray Other Providers: Andrés Diaz ; Williams Alfaro Service: Medical
== END 2018-07-11 13:34 | DRG 177 ==
LOC: EDUNIT# 12:46 → ED 12:46 → 1E 15:04 → SUATTDRO 15:04 → 1E 16:07 → 2S 07-04 15:14 → 4W 07-10 18:53

== ENCOUNTER 2020-01-22 11:58 | Inpatient (IN) ==
[2020-01-22] MEDS ORDERED: ONDANSETRON INJ 2 MG/ML 2 ML VIAL IV STA (12:26)
[2020-01-22] MEDS ORDERED: SODIUM CHLORIDE 0.9% 1000ML 500 ML IV ONE (12:26)
[2020-01-22] MEDS ORDERED: ACETAMINOPHEN 1,000 MG/100 ML VIAL IV STA (12:26)
[2020-01-22 13:38] LABS: Basophils # (auto) 0.02 K/uL (0-0.2); Basophils % (auto) 0.1 %; Eosinophils # (auto) 0.02 K/uL (0-0.5); Eosinophils % (auto) 0.1 %; Hematocrit (blood only) 39.7 % (37-47); Hemoglobin 12.3 g/dL (12.0-16.0); Immature Granulocytes # (auto) 0.09 K/uL (0.00-0.02); Immature Granulocytes % (auto) 0.6 %; Lymphocytes # (auto) 0.32 K/uL (1.2-3.4); Lymphocytes % (auto) 2.2 %; Mean Corpuscular Hemoglobin 32.1 pg (25-34); Mean Corpuscular Volume 103.7 fL (80-100); Mean Platelet Volume 11.6 fL (7.4-10.4); Monocytes # (auto) 0.55 K/uL (0.11-0.59); Monocytes % (auto) 3.7 %; Neutrophils # (auto) 13.74 K/uL (1.4-6.5); Neutrophils % (auto) 93.3 %; Platelet Count 131 K/uL (130-400); RDW Coefficient of Variation 13.3 % (11.5-14.5); RDW Standard Deviation 49.9 fL (36.4-46.3); Red Blood Count 3.83 M/uL (4.2-5.4); White Blood Count 14.74 K/uL (4.8-10.8)
[2020-01-22 13:48] LABS: Partial Thromboplastin Ratio 0.7; Partial Thromboplastin Time 20.9 Seconds (21.0-31.0); Prothrombin Time 10.8 Seconds (9.0-12.0)
[2020-01-22] MEDS ORDERED: cefTRIAXone SODIUM 2,000 MG/70 ML BAG IV STA (13:50)
[2020-01-22 13:56] LABS: Alanine Aminotransferase 20 U/L (12-78); Albumin Level 3.1 gm/dl (3.4-5.0); Aspartate Aminotransferase 24 U/L (15-37); Blood Urea Nitrogen 14 mg/dl (7-18); Calcium 8.6 mg/dl (8.5-10.1); Carbon Dioxide 35 mmol/L (21-32); Chloride 99 mmol/L (98-107); Est GFR (African American) 76.2; Est GFR (Non-African American) 65.8; Glucose 135 mg/dl (70-99); Potassium 4.3 mmol/L (3.5-5.1); Sodium 137 mmol/L (136-145)
[2020-01-22 14:04] LABS: Albumin Globulin Ratio 0.7 (0.9-2); Alkaline Phosphatase 55 U/L (45-117); Bilirubin,Total 0.3 mg/dl (0.2-1); C Reactive Protein 2.96 mg/dl (0-0.29); Creatine Kinase 38 U/L (26-192); Creatine Kinase MB < 1.0 ng/ml (0.5-3.6); Ferritin 61.7 ng/ml (8-388); Globulin 4.3 gm/dl (2.5-4.0); Total Protein 7.4 gm/dl (6.4-8.2); Troponin I 0.266 ng/ml (0-0.045)
--- NOTE | 2020-01-22 14:26 | XRay Report ---
XR chest 1V portable CLINICAL HISTORY: SEPSIS COMPARISON STUDY: 08/09/2018 FINDINGS: The heart is enlarged. There are bilateral interstitial pulmonary opacities, similar to the prior study and likely chronic. There is no lobar consolidation. There are no significant pleural ef fusions.[ IMPRESSION: Cardiomegaly and chronic interstitial pulmonary opacities similar to the prior study ACT 112: Negative or not required by law. Electronically signed by: Steven Bright M.D. 01/22/2020 2:25 PM
--- NOTE | 2020-01-22 15:23 | History & Physical Report ---
Date of Service January 22, 2020 Assessment & Plan (1) Acute lower UTI (urinary tract infection): Mrs. Vanegas is a pleasant 84-year-old female who has significant past medical history of chronic respiratory failure with hypoxia and hypercapnia on chronic 4 L of O2, COPD, ulcerative colitis, HTN, hypothyroidism, cor pulmonale who presents to ED secondary to weakness, vomiting and lethargy x1 day. In ED patient remained hemodynamically stable although temp mildly elevated at 37.6. Lab work notable for leukocytosis 14.74k, H&H 12.3 and 39.7, platelet 131, BUN 14, creatinine 0.81, glucose 135, LDH 249, troponin 0.266, CRP 2.96, procalcitonin mildly elevated 0.65. Covid PCR was negative. Chest x-ray for cardiomegaly and chronic interstitial pulmonary opacities similar to prior study. No acute change. In ED she received 2 g IV Rocephin, 500 mL IVF and 1 g IV acetaminophen. admit to med tele Continue IV antibiotics with Rocephin daily blood and urine culture pending gentle IVF 80cc/hr x 1 L diet as tolerated PT/OT discussed with pt son CHRISTIE Vanegas [phone] and updated him on care of mother, Mrs. Vanegas. He agrees with assessment and treatment plan. He lives in [place] and would like daily update from rounding provider (2) Elevated troponin: no chest pain or change in ecg, likely chronic will trend x 2 but otherwise no intervention warranted at this time (3) Chronic respiratory failure with hypoxia and hypercapnia: 2/2 to COPD/Pulm Fibrosis continue supplemental oxygen (4) COPD (chronic obstructive pulmonary disease): no acute exac continue Trelegy and prn duoneb continue O2 supplementation (5) Essential hypertension: Blood pressure mildly elevated in ED 155/67 likely in setting of not taking a.m. meds along with situational resume metoprolol and lisinopril (6) Hypothyroidism: continue levothyroxine (7) Ulcerative colitis: continue Mesalamine (8) Osteoporosis: continue Evista (9) DVT prophylaxis: SQ Heparin Disposition: admit to med tele Follow up: PCP Dr. Gray upon discharge Pt was seen and examined in collaboration with Dr. Zhou, please see addendum History of Present Illness Chief Complaint: Weakness, vomiting and lethargy x1 day. Primary Care Provider: Su Gray Mrs. Vanegas is a pleasant 84-year-old female who has significant past medical history of chronic respiratory failure with hypoxia and hypercapnia on chronic 4 L of O2, COPD, ulcerative colitis, HTN, hypothyroidism, cor pulmonale who presents to ED secondary to weakness, vomiting and lethargy x1 day. Patient lives at home with 24/7 caregivers. Her caregiver is currently at bedside. Admits over the past 1 to 2 weeks she has been having increased urinary frequency, urgency and incontinence. There has also been noticeable sediment in urine. They called into PCP and she was started on oral Bactrim DS 1 tablet twice a day for possible UTI. She took 2 doses of the antibiotics and last evening had episode of emesis, was becoming more confused, weakness and lethargy. When patient awoke this classification counselor felt she was not herself and she had elevated temperature. EMS was summoned. In ED patient states, "I feel better." She denies any fever, chills, sweats, lightheadedness, dizziness, headache, chest pain, shortness of breath, cough, nausea, vomiting, abdominal pain, dysuria, hematuria, melena, hematochezia. Her last BM was at 4 AM this morning. Caregiver admits to fever of 100.7 this morning. ROS is slightly unreliable secondary to underlying cognition. According to caregiver she does have mild underlying dementia, but she does read on a daily basis. Over the past 24 hours she has had limited oral intake due to poor appetite. In ED patient remained hemodynamically stable although temp mildly elevated at 37.6. Lab work notable for leukocytosis 14.74k, H&H 12.3 and 39.7, platelet 131, BUN 14, creatinine 0.81, glucose 135, LDH 249, troponin 0.266, CRP 2.96, procalcitonin mildly elevated 0.65. Covid PCR was negative. Chest x-ray for cardiomegaly and chronic interstitial pulmonary opacities similar to prior study. No acute change. In ED she received 2 g IV Rocephin, 500 mL IVF and 1 g IV acetaminophen. Allergies Allergy/AdvReac Type Severity Reaction Status Date / Time Penicillins Allergy Verified 01/22/20 14:08 sulfamethoxazole AdvReac Unknown Unverified 01/22/20 14:19 [From Bactrim] trimethoprim [From Bactrim] AdvReac Unknown Unverified 01/22/20 14:19 Home Medications Home Medications Medication Instructions Recorded Confirmed Type levothyroxine 50 mcg PO QAM 07/03/18 01/22/20 History mesalamine [Apriso] 1.5 g PO QAM 07/03/18 01/22/20 History raloxifene [Evista] 60 mg PO QPM 07/03/18 01/22/20 History oxydbkrpuhb-qxqxfkcqn-zozmbpcl 1 puff INHALATION DAILY 08/09/18 01/22/20 History [Trelegy Ellipta] ipratropium-albuterol 3 ml INHALATION QID PRN 08/09/18 01/22/20 History lisinopril 10 mg PO QAM 08/09/18 01/22/20 History metoprolol succinate 25 mg PO HS 08/09/18 01/22/20 History trazodone 50 mg PO UD 08/09/18 01/22/20 History Multivitamin Gummy 1 tab PO DAILY 01/22/20 01/22/20 History ferrous sulfate 325 mg PO DAILY 01/22/20 01/22/20 History loperamide [Imodium A-D] 0 mg PO Q4H PRN 01/22/20 01/22/20 History montelukast 10 mg PO DAILY 01/22/20 01/22/20 History prednisone 2.5 mg PO DAILY 01/22/20 01/22/20 History sulfamethoxazole-trimethoprim 1 tab PO BID 01/22/20 01/22/20 History [Bactrim DS] Past Med/Surg History Medical History (Updated 01/22/20 @ 15:34 by Mame Mak PA-C) Adjustment disorder with mixed anxiety and depressed mood COPD (chronic obstructive pulmonary disease) Essential hypertension Hypercholesteremia Hypothyroidism Iron deficiency anemia Osteoporosis Requires supplemental oxygen Ulcerative colitis Surgical History History of D&C History of tonsillectomy Family History Other Family history non-contributory Social History (Updated 01/22/20 @ 15:29 by Mame Mak PA-C) Smoking Status: Former smoker Cigarettes Per Day: pt unsure; Second Hand Exposure: No; Do You Dip or Chew Tobacco: No; Hx Alcohol Use: No Hx Substance Use: No Preferred Language: Bahraini Communication Ability: Effective Paper Coater Required: No Beliefs That Will Affect Care: None Current Living Situation: Alone and Other Current Living Situation Comment: has 07/11 caregivers Other Information That Helps Us Care for You: No Feels Safe at Home: Yes Assistive Devices: Denture - Upper, Denture - Lower, Glasses and Oxygen - Continuous Assistive Devices Comment: reading glasses Review of Systems Review of Systems: All systems reviewed & are unremarkable except as noted in HPI & below Physical Exam Physical Exam: Constitutional: WD/WN, female, vitals as above, NAD, sitting up in bed, pleasant, conversing easily, drowsy but easily arouses to verbal stimulation Head: Normocephalic, Atraumatic Eyes: PERRL, conjunctivae normal, anicteric sclerae ENMT: external ear and nose normal, oropharynx normal dry mucous membranes Neck: trachea midline, no thyromegaly normal visual inspection Respiratory: On 4 L O2 via NC, decreased aeration throughout, normal respiratory effort, lungs clear to auscultation, no wheeze, rales, rhonchi. Normal insp/exp effort, no accessory muscle use Cardiovascular: RRR, no murmur, no edema Vessels: no JVD or carotid bruit Chest: normal inspection of chest Abdomen: normal bowel sounds, soft, nontender, no hepatosplenomegaly Musculoskeletal: no cyanosis or clubbing, extremities motor strength 5/5 Skin: no rashes, warm and dry normal turgor Neurologic: PERRL, EOMI, accommodation nl, no face palsy, no dysarthria CN's II-XI intact bilaterally and moves all extremities Psychiatric: A+Ox3 to basics, euthymic affect Lymphatic: no cervical or axillary lymphadenopathy : deferred Results & Data Results & Data ([facility]) Vital Signs (Past 12 Hours) Vital Signs Temp Pulse Resp BP Pulse Ox 01/22/20 14:01 87 155/67 H 98 01/22/20 13:00 88 21 156/83 H 01/22/20 12:51 96 01/22/20 12:31 88 155/78 H 100 01/22/20 12:21 96 01/22/20 12:17 89 27 H 164/93 H 100 01/22/20 12:06 37.6 C H 99 H 22 164/93 H 97 01/22/20 12:05 92 H 33 H 164/93 H 99 Laboratory Results Short CBC 01/22/20 01/22/20 01/22/20 Range/Units 13:24 13:24 13:24 WBC 14.74 H (4.8-10.8) K/uL Hgb 12.3 (12.0-16.0) g/dL Hct 39.7 (37-47) % Plt Count 131 (130-400) K/uL Troponin I 0.266 H* (0-0.045) ng/ml COVID-19 PCR NEGATIVE (Negative) BMP 01/22/20 13:24 Sodium 137 Potassium 4.3 Chloride 99 Carbon Dioxide 35 H BUN 14 Creatinine 0.81 Glucose 135 H Calcium 8.6 Cardiac Enzymes 01/22/20 Range/Units 13:24 Total Creatine Kinase 38 (26-192) U/L CK-MB (CK-2) < 1.0 (0.5-3.6) ng/ml Troponin I 0.266 H* (0-0.045) ng/ml Liver Function 01/22/20 Range/Units 13:24 Total Bilirubin 0.3 (0.2-1) mg/dl AST 24 (15-37) U/L ALT 20 (12-78) U/L Alkaline Phosphatase 55 (45-117) U/L Albumin 3.1 L (3.4-5.0) gm/dl Diagnostic Findings CXR: IMPRESSION: Cardiomegaly and chronic interstitial pulmonary opacities similar to the prior study Medications Administered Discontinued Medications Sodium Chloride (Nss 1000ml) 500 mls @ 999 mls/hr IV .Q31M ONE Stop: 01/22/20 12:56 Last Infusion: 01/22/20 14:16 Dose: 0 mls/hr Documented by: [id number] Admin: 01/22/20 13:45 Dose: 999 mls/hr Documented by: [id number] Acetaminophen (Ofirmev) 1,000 mg in 100 mls @ 400 mls/hr IV NOW STA Stop: 01/22/20 12:40 Last Infusion: 01/22/20 14:00 Dose: 0 mls/hr Documented by: [id number] Admin: 01/22/20 13:45 Dose: 400 mls/hr Documented by: [id number] Ceftriaxone Sodium (Rocephin) 2,000 mg in 70 mls @ 140 mls/hr IV NOW STA Stop: 01/22/20 14:19 Last Admin: 01/22/20 15:15 Dose: 140 mls/hr Documented by: [id number] Ondansetron HCl (Ondansetron Inj 2 Mg/Ml 2 Ml Vial) 4 mg IV NOW STA Stop: 01/22/20 12:27 Last Admin: 01/22/20 13:46 Dose: 4 mg Documented by: [id number] ECG Rate (beats per minute): 93 Findings: + LAFB and + RBBB Change: no significant change Code Status & VTE Plan Code Status DNR Discussed with Son Christie VTE Prophylaxis Plan VTE Prophylaxis will be ordered: Yes Supervising Physician Co-Signing Physician Notes Attending addendum: The patient was seen and examined in emergency room in presence of the caregiver She is an 84 years old lady with significant past medical history as mentioned in H&P was admitted with increasing weakness, vomiting and lethargy for about 1 day She has been taking Bactrim DS since yesterday due to presumed UTI She has been feeling better following administration of intravenous fluid and antibiotics and also IV Tylenol in the emergency room Denies any significant symptoms On examination Lying in bed comfortably Afebrile and hemodynamically stable Chest-decreased breath sounds with crackles bilaterally Heart-S1-S2, regular Abdomen-soft, mildly tender hypogastrium and renal angles Extremities-negative for any edema PETROPHYSICIST-alert, awake and seems to pleasantly confused Admission labs and imaging studies reviewed Has UTI and will start intravenous ceftriaxone Other significant medical conditions seems to be stable Agree with assessment plan as outlined above by MARA Rivera Dr
[2020-01-22] MEDS ORDERED: SODIUM CHLORIDE 0.9% 1000ML 1,000 ML IV SCH (16:27)
[2020-01-22] MEDS ORDERED: ONDANSETRON INJ 2 MG/ML 2 ML VIAL IV PRN (16:27)
[2020-01-22] MEDS ORDERED: ALBUT/IPRATROP 3MG/0.5MG NEB 3 ML VIAL INH PRN (16:27)
[2020-01-22] MEDS ORDERED: ACETAMINOPHEN 325 MG TAB PO PRN (16:27)
[2020-01-22] MEDS ORDERED: MAGNESIUM HYDROXIDE SUSP 30 ML UDC PO PRN (16:27)
[2020-01-22] MEDS ORDERED: POLYETHYLENE (MIRALAX) 17 GM PACK PO PRN (16:27)
[2020-01-22] MEDS ORDERED: ALUMINUM/MAGNESIUM SUSP 30 ML UDC PO PRN (16:27)
[2020-01-22] MEDS: traZODone HCL 50 MG TAB PO SCH ×2 (17:53→20:59)
[2020-01-22 20:16] LABS: Appearance Urine Clear (Clear); Bacteria Urine Automated Negative (Negative); Bilirubin Urine Negative (Negative); Blood Urine Negative (Negative); Color Urine Yellow; Epithelial Cell Urine Auto 20-30 /lpf (0-5); Glucose Urine UA Negative (Negative); Ketones Urine Negative (Negative); Leukocyte Esterase Urine 1+ (Negative); Nitrite Urine Negative (Negative); Protein Urine Negative (Negative); RBC Urine Automated 0-4 /hpf (0-4); Specific Gravity Urine 1.016 (1.000-1.030); Urobilinogen Urine Negative (Negative); WBC Urine Automated >30 /hpf (0-5)
[2020-01-22] MEDS: RALOXIFENE HCL 60 MG TAB PO SCH (20:59)
[2020-01-22] MEDS: HEPARIN SOD 5,000 UNIT/0.5 ML VIAL SQ SCH (20:59)
[2020-01-22] MEDS: METOPROLOL SUCC 25MG EXT REL TAB PO SCH (21:00)
[2020-01-22] MEDS ORDERED: FUROSEMIDE 20 MG in SYRINGE 0 ML IV ONE (21:15)
[2020-01-22] MEDS ORDERED: ACETAMINOPHEN 1000 MG/100 ML IV IV ONE (22:25)
[2020-01-22] MEDS ORDERED: XOPENEX/ATROVENT 1.25mg/0.5MG NEB COMBO NEB STA (22:25)
[2020-01-22] MEDS ORDERED: MAGNESIUM SULFATE / D5W 1 GM/100 ML BAG IV ONE (22:27)
[2020-01-22] MEDS ORDERED: methylPREDNISolone 40 MG in SYRINGE 0 ML IV STA (22:28)
[2020-01-22] MEDS ORDERED: IPRATROPIUM BROMIDE NEB SOLN 0.02% 2.5 ML VIAL INH STA (22:29)
[2020-01-22] MEDS ORDERED: LEVALBUTEROL 1.25MG/0.5ML NEB INH STA (22:29)
--- NOTE | 2020-01-22 22:45 | Communication Note ---
Date of Service: January 22, 2020 Made aware by RN of "crackly" breath sounds post emesis episode. Patient noted to be lethargic. Fever spike later noted. Chest x-ray as per my interpretation : Atelectasis, chronic changes AP Aspiration pneumonitis Ertapenem (DC Ceftriaxone Rx for UTI given coverage) Aspiration precautions Swallow eval Will relay to AM provider.
[2020-01-22 23:12] LABS: Allen Test POS (Pos); Base Excess ABG 4.5 mEq/L (-9-1.8); HCO3 ABG 30 mmol/L (19-24); PCO2 ABG 47 mmHg (35-46); PO2 ABG 76 mmHg (80-95); pH ABG 7.42 (7.35-7.45)
[2020-01-23] MEDS: ERTAPENEM SODIUM 1,000 MG in SODIUM CHLORIDE 0.9% 50 ML IV SCH ×2 (00:18→22:39)
[2020-01-23] MEDS: LEVOTHYROXINE SODIUM 50 MCG TABLET PO SCH (05:49)
--- NOTE | 2020-01-23 07:55 | XRay Report ---
SINGLE VIEW CHEST CLINICAL HISTORY: Hypoxia. FINDINGS: An AP, portable, upright chest radiograph is compared to study performed earlier the same d ay 01/22/2020 and correlated with chest CT dated 08/09/2018. The examination is degraded by portable te chnique and patient rotation. The heart is mildly enlarged noting atherosclerotic calcification of t he thoracic aorta. The pulmonary vasculature is noncongested. Advanced emphysema with chronic interst itial thickening and parenchymal nodularity is similar to previous. Foci of scarring/atelectasis are seen throughout both lungs. No airspace consolidation or large pleural effusion is identified. No pne umothorax is seen. The skeletal structures are osteopenic. The bony thorax is grossly intact. IMPRESSION: Cardiomegaly and advanced emphysema with no acute cardiopulmonary abnormality. ACT 112: Negative or not required by law. Electronically signed by: Abelardo Lindo M.D. 01/23/2020 7:53 AM
[2020-01-23 08:19] LABS: Basophils # (auto) 0.01 K/uL (0-0.2); Basophils % (auto) 0.1 %; Hematocrit (blood only) 40.1 % (37-47); Hemoglobin 12.2 g/dL (12.0-16.0); Immature Granulocytes # (auto) 0.11 K/uL (0.00-0.02); Immature Granulocytes % (auto) 0.6 %; Lymphocytes # (auto) 0.39 K/uL (1.2-3.4); Lymphocytes % (auto) 2.1 %; Mean Corpuscular Hemoglobin 31.5 pg (25-34); Mean Corpuscular Hgb Conc 30.4 g/dL (32-36); Mean Corpuscular Volume 103.6 fL (80-100); Mean Platelet Volume 11.2 fL (7.4-10.4); Monocytes # (auto) 0.28 K/uL (0.11-0.59); Monocytes % (auto) 1.5 %; Neutrophils # (auto) 18.16 K/uL (1.4-6.5); Neutrophils % (auto) 95.7 %; Platelet Count 259 K/uL (130-400); RDW Coefficient of Variation 13.5 % (11.5-14.5); RDW Standard Deviation 50.8 fL (36.4-46.3); Red Blood Count 3.87 M/uL (4.2-5.4); White Blood Count 18.95 K/uL (4.8-10.8)
[2020-01-23 08:38] LABS: Albumin Level 2.7 gm/dl (3.4-5.0); Calcium 8.7 mg/dl (8.5-10.1); Creatinine Clr Calc Pharmacy 31.6 ml/min; Est GFR (African American) 58.4; Est GFR (Non-African American) 50.4; Potassium 3.8 mmol/L (3.5-5.1)
[2020-01-23 08:41] LABS: Albumin Globulin Ratio 0.6 (0.9-2); Bilirubin,Total 0.2 mg/dl (0.2-1); Globulin 4.2 gm/dl (2.5-4.0); Total Protein 6.9 gm/dl (6.4-8.2)
[2020-01-23] MEDS ORDERED: cefTRIAXone SODIUM 2,000 MG in DEXTROSE 5% 50 ML IV SCH (09:00)
[2020-01-23] MEDS ORDERED: ERTAPENEM CONSULT ACTIVE PRN (09:00)
[2020-01-23] MEDS: UMECLIDINIUM/VILANTEROL 62.5/25MCG 7 PUFFS/INHALER INH SCH (09:05)
[2020-01-23] MEDS: lisinopriL 10 MG TAB PO SCH (09:05)
[2020-01-23] MEDS: FLUTICASONE FUROATE 100MCG 14 PUFFS/INHALER INH SCH (09:05)
[2020-01-23] MEDS: FERROUS SULFATE 325 MG TAB PO SCH (09:06)
[2020-01-23] MEDS: MONTELUKAST SODIUM 10 MG TABLET PO SCH (09:06)
[2020-01-23] MEDS: predniSONE 2.5 MG TAB PO SCH (09:06)
[2020-01-23] MEDS: HEPARIN SOD 5,000 UNIT/0.5 ML VIAL SQ SCH ×2 (09:07→20:21)
--- NOTE | 2020-01-23 09:59 | Hospitalist Progress Note ---
Date of Service January 23, 2020 Assessment & Plan (1) Acute lower UTI (urinary tract infection): Sepsis 2/2 UTI Aspiration pneumonitis Mrs. Vanegas is a pleasant 84-year-old female who has significant past medical history of chronic respiratory failure with hypoxia and hypercapnia on chronic 4 L of O2, COPD, ulcerative colitis, HTN, hypothyroidism, cor pulmonale who presents to ED secondary to weakness, vomiting and lethargy x1 day. In ED patient remained hemodynamically stable although temp mildly elevated at 37.6. Lab work notable for leukocytosis 14.74k, H&H 12.3 and 39.7, platelet 131, BUN 14, creatinine 0.81, glucose 135, LDH 249, troponin 0.266, CRP 2.96, procal citonin mildly elevated 0.65. Covid PCR was negative. Pt also tachycardic on admission, c/w sepsis given leukocytosis, elev. procal, altered mental status Chest x-ray for cardiomegaly and chronic interstitial pulmonary opacities similar to prior study. No acute change. In ED she received 2 g IV Rocephin, 500 mL IVF and 1 g IV acetaminophen. The night of admission however pt vomited and had a fever, concern for aspiration CXR obtained, no opacities noted Pt treated for aspiration pneumonitis Ceftriaxone was switched to ertapenem overnight, will continue blood and urine culture pending diet as tolerated PT/OT discussed with pt son CHRISTIE Vanegas [phone] and updated him on care of mother, Mrs. Vanegas. He agrees with assessment and treatment plan. He lives in [place] and would like daily update from rounding provider (2) Elevated troponin: no chest pain or change in ecg, likely chronic trend x 2 but otherwise no intervention warranted at this time (3) Chronic respiratory failure with hypoxia and hypercapnia: 2/2 to COPD/Pulm Fibrosis continue supplemental oxygen (4) COPD (chronic obstructive pulmonary disease): no acute exac continue Trelegy and prn duoneb continue O2 supplementation (5) Essential hypertension: Blood pressure mildly elevated in ED 155/67 likely in setting of not taking a.m. meds along with situational resume metoprolol and lisinopril BP at goal now (6) Hypothyroidism: continue levothyroxine (7) Ulcerative colitis: continue Mesalamine (8) Osteoporosis: continue Evista (9) DVT prophylaxis: SQ Heparin Disposition: med tele Follow up: PCP Dr. Gray upon discharge Admission and Anticipated Discharge Date Admission Date: January 22, 2020 Subjective Pt is sitting up in the chair, in NAD. Supplemental oxygen applied. Caregiver present at the bedside. Pt denies any chest pain shortness of breath, abd. pain, nausea or vomiting. She does not remember what brought her to the hospital. Pt's son updated over the phone. Review of Systems Review of Systems: All systems reviewed & are unremarkable except as noted in HPI & below Constitutional: no fever and no chills Respiratory: no dyspnea Cardiovascular: no chest pain and no palpitations Gastrointestinal: no abdominal pain, no nausea and no vomiting Physical Exam Physical Exam: Constitutional: WD/WN, female, vitals as above, NAD, sitting up in bed, pleasant, conversing easily Head: Normocephalic, Atraumatic Eyes: PERRL, EOMI, conjunctivae normal, anicteric sclerae ENMT: external ear and nose normal, oropharynx normal dry mucous membranes Neck: trachea midline, no thyromegaly normal visual inspection Respiratory: On O2 via NC, decreased aeration throughout, normal respiratory effort, lungs clear to auscultation, no wheeze, or crackles, very mild rhonchi noted. Normal insp/exp effort, no accessory muscle use Cardiovascular: RRR, no murmur, no edema Vessels: no JVD or carotid bruit Chest: normal inspection of chest Abdomen: normal bowel sounds, soft, nontender Musculoskeletal: no cyanosis or clubbing, extremities motor strength 5/5 Skin: no rashes, warm and dry normal turgor Neurologic: PERRL, EOMI, no face palsy, no dysarthria CN's II-XI intact bilaterally and moves all extremities Psychiatric: A+Ox3 to basics, euthymic affect Results & Data Results & Data ([facility]) Vital Signs (Past 12 Hours) Vital Signs Temp Pulse Pulse Resp BP BP Pulse Ox 01/23/20 07:38 36.4 C L 85 16 118/70 99 01/23/20 07:34 83 01/23/20 03:33 36.9 C 86 18 123/70 98 01/23/20 01:08 93 H 01/22/20 22:37 96 H 24 96 01/22/20 22:28 38.6 C H 92 H 121/69 94 01/22/20 21:58 93 H 25 H 145/71 H 95 Laboratory Results 01/23/20 01/23/20 01/22/20 Range/Units 07:34 07:34 22:48 WBC 18.95 H (4.8-10.8) K/uL RBC 3.87 L (4.2-5.4) M/uL Hgb 12.2 (12.0-16.0) g/dL Hct 40.1 (37-47) % MCV 103.6 H (80-100) fL MCH 31.5 (25-34) pg MCHC 30.4 L (32-36) g/dL RDW Std Deviation 50.8 H (36.4-46.3) fL RDW Coeff of Robin 13.5 (11.5-14.5) % Plt Count 259 D (130-400) K/uL MPV 11.2 H (7.4-10.4) fL Immature Gran % (Auto) 0.6 % Neut % (Auto) 95.7 % Lymph % (Auto) 2.1 % Ford % (Auto) 1.5 % Eos % (Auto) 0.0 % Baso % (Auto) 0.1 % Neut # (Auto) 18.16 H (1.4-6.5) K/uL Lymph # (Auto) 0.39 L (1.2-3.4) K/uL Ford # (Auto) 0.28 (0.11-0.59) K/uL Eos # (Auto) 0.00 (0-0.5) K/uL Baso # (Auto) 0.01 (0-0.2) K/uL Immature Gran # (Auto) 0.11 H (0.00-0.02) K/uL ESR (0-21) mm/hr PT (9.0-12.0) Seconds INR (0.9-1.1) APTT (21.0-31.0) Seconds PTT Ratio ABG pH 7.42 (7.35-7.45) ABG pCO2 47 H (35-46) mmHg ABG pO2 76 L (80-95) mmHg ABG HCO3 30 H (19-24) mmol/L ABG O2 Saturation 95.0 (90-95) % ABG Base Excess 4.5 H (-9-1.8) mEq/L Shan Test POS (Pos) Barometric Pressure 729.5 mm/Hg Oxygen Given 3L Sodium 135 L (136-145) mmol/L Potassium 3.8 (3.5-5.1) mmol/L Chloride 99 (98-107) mmol/L Carbon Dioxide 30 (21-32) mmol/L Anion Gap 6.0 (3-11) BUN 17 (7-18) mg/dl Creatinine 1.01 (0.6-1.2) mg/dl Est Cr Clr Drug Dosing 31.6 Est GFR ( Amer) 58.4 Est GFR (Non-Af Amer) 50.4 BUN/Creatinine Ratio 17.0 (10-20) Glucose 125 H (70-99) mg/dl POC Glucose (70-99) mg/dl Lactate (0.4-2.0) mmol/L Calcium 8.7 (8.5-10.1) mg/dl Magnesium (1.8-2.4) mg/dl Ferritin (8-388) ng/ml Total Bilirubin 0.2 (0.2-1) mg/dl AST 42 H (15-37) U/L ALT 23 (12-78) U/L Alkaline Phosphatase 46 (45-117) U/L Ammonia (11-32) umol/L Lactate Dehydrogenase (84-246) U/L Total Creatine Kinase (26-192) U/L CK-MB (CK-2) (0.5-3.6) ng/ml CK/CKMB % Calc Troponin I (0-0.045) ng/ml C-Reactive Protein (0-0.29) mg/dl Total Protein 6.9 (6.4-8.2) gm/dl Albumin 2.7 L (3.4-5.0) gm/dl Globulin 4.2 H (2.5-4.0) gm/dl Albumin/Globulin Ratio 0.6 L (0.9-2) Procalcitonin (0-0.5) ng/ml Urine Color Urine Appearance (Clear) Urine pH (4.5-7.5) Ur Specific [place] (1.000-1.030) Urine Protein (Negative) Urine Glucose (UA) (Negative) Urine Ketones (Negative) Urine Blood (Negative) Urine Nitrite (Negative) Urine Bilirubin (Negative) Urine Urobilinogen (Negative) Ur Leukocyte Esterase (Negative) Urine WBC (Auto) (0-5) /hpf Urine RBC (Auto) (0-4) /hpf U Hyaline Cast (Auto) (0-5) /lpf U Epithel Cells (Auto) (0-5) /lpf Urine Bacteria (Auto) (Negative) COVID-19 Eval Order COVID-19 PCR (Negative) 01/22/20 01/22/20 01/22/20 Range/Units 22:48 20:38 19:11 WBC (4.8-10.8) K/uL RBC (4.2-5.4) M/uL Hgb (12.0-16.0) g/dL Hct (37-47) % MCV (80-100) fL MCH (25-34) pg MCHC (32-36) g/dL RDW Std Deviation (36.4-46.3) fL RDW Coeff of Robin (11.5-14.5) % Plt Count (130-400) K/uL MPV (7.4-10.4) fL Immature Gran % (Auto) % Neut % (Auto) % Lymph % (Auto) % Ford % (Auto) % Eos % (Auto) % Baso % (Auto) % Neut # (Auto) (1.4-6.5) K/uL Lymph # (Auto) (1.2-3.4) K/uL Ford # (Auto) (0.11-0.59) K/uL Eos # (Auto) (0-0.5) K/uL Baso # (Auto) (0-0.2) K/uL Immature Gran # (Auto) (0.00-0.02) K/uL ESR (0-21) mm/hr PT (9.0-12.0) Seconds INR (0.9-1.1) APTT (21.0-31.0) Seconds PTT Ratio ABG pH (7.35-7.45) ABG pCO2 (35-46) mmHg ABG pO2 (80-95) mmHg ABG HCO3 (19-24) mmol/L ABG O2 Saturation (90-95) % ABG Base Excess (-9-1.8) mEq/L Shan Test (Pos) Barometric Pressure mm/Hg Oxygen Given Sodium (136-145) mmol/L Potassium (3.5-5.1) mmol/L Chloride (98-107) mmol/L Carbon Dioxide (21-32) mmol/L Anion Gap (3-11) BUN (7-18) mg/dl Creatinine (0.6-1.2) mg/dl Est Cr Clr Drug Dosing Est GFR ( Amer) Est GFR (Non-Af Amer) BUN/Creatinine Ratio (10-20) Glucose (70-99) mg/dl POC Glucose 139 H (70-99) mg/dl Lactate (0.4-2.0) mmol/L Calcium (8.5-10.1) mg/dl Magnesium (1.8-2.4) mg/dl Ferritin (8-388) ng/ml Total Bilirubin (0.2-1) mg/dl AST (15-37) U/L ALT (12-78) U/L Alkaline Phosphatase (45-117) U/L Ammonia 26.0 (11-32) umol/L Lactate Dehydrogenase (84-246) U/L Total Creatine Kinase (26-192) U/L CK-MB (CK-2) (0.5-3.6) ng/ml CK/CKMB % Calc Troponin I 0.256 H* (0-0.045) ng/ml C-Reactive Protein (0-0.29) mg/dl Total Protein (6.4-8.2) gm/dl Albumin (3.4-5.0) gm/dl Globulin (2.5-4.0) gm/dl Albumin/Globulin Ratio (0.9-2) Procalcitonin (0-0.5) ng/ml Urine Color Urine Appearance (Clear) Urine pH (4.5-7.5) Ur Specific [place] (1.000-1.030) Urine Protein (Negative) Urine Glucose (UA) (Negative) Urine Ketones (Negative) Urine Blood (Negative) Urine Nitrite (Negative) Urine Bilirubin (Negative) Urine Urobilinogen (Negative) Ur Leukocyte Esterase (Negative) Urine WBC (Auto) (0-5) /hpf Urine RBC (Auto) (0-4) /hpf U Hyaline Cast (Auto) (0-5) /lpf U Epithel Cells (Auto) (0-5) /lpf Urine Bacteria (Auto) (Negative) COVID-19 Eval Order COVID-19 PCR (Negative) 01/22/20 01/22/20 01/22/20 Range/Units 13:45 13:24 13:24 WBC (4.8-10.8) K/uL RBC (4.2-5.4) M/uL Hgb (12.0-16.0) g/dL Hct (37-47) % MCV (80-100) fL MCH (25-34) pg MCHC (32-36) g/dL RDW Std Deviation (36.4-46.3) fL RDW Coeff of Robin (11.5-14.5) % Plt Count (130-400) K/uL MPV (7.4-10.4) fL Immature Gran % (Auto) % Neut % (Auto) % Lymph % (Auto) % Ford % (Auto) % Eos % (Auto) % Baso % (Auto) % Neut # (Auto) (1.4-6.5) K/uL Lymph # (Auto) (1.2-3.4) K/uL Ford # (Auto) (0.11-0.59) K/uL Eos # (Auto) (0-0.5) K/uL Baso # (Auto) (0-0.2) K/uL Immature Gran # (Auto) (0.00-0.02) K/uL ESR (0-21) mm/hr PT (9.0-12.0) Seconds INR (0.9-1.1) APTT (21.0-31.0) Seconds PTT Ratio ABG pH (7.35-7.45) ABG pCO2 (35-46) mmHg ABG pO2 (80-95) mmHg ABG HCO3 (19-24) mmol/L ABG O2 Saturation (90-95) % ABG Base Excess (-9-1.8) mEq/L Shan Test (Pos) Barometric Pressure mm/Hg Oxygen Given Sodium (136-145) mmol/L Potassium (3.5-5.1) mmol/L Chloride (98-107) mmol/L Carbon Dioxide (21-32) mmol/L Anion Gap (3-11) BUN (7-18) mg/dl Creatinine (0.6-1.2) mg/dl Est Cr Clr Drug Dosing Est GFR ( Amer) Est GFR (Non-Af Amer) BUN/Creatinine Ratio (10-20) Glucose (70-99) mg/dl POC Glucose (70-99) mg/dl Lactate (0.4-2.0) mmol/L Calcium (8.5-10.1) mg/dl Magnesium (1.8-2.4) mg/dl Ferritin (8-388) ng/ml Total Bilirubin (0.2-1) mg/dl AST (15-37) U/L ALT (12-78) U/L Alkaline Phosphatase (45-117) U/L Ammonia (11-32) umol/L Lactate Dehydrogenase (84-246) U/L Total Creatine Kinase (26-192) U/L CK-MB (CK-2) (0.5-3.6) ng/ml CK/CKMB % Calc Troponin I (0-0.045) ng/ml C-Reactive Protein (0-0.29) mg/dl Total Protein (6.4-8.2) gm/dl Albumin (3.4-5.0) gm/dl Globulin (2.5-4.0) gm/dl Albumin/Globulin Ratio (0.9-2) Procalcitonin (0-0.5) ng/ml Urine Color Yellow Urine Appearance Clear (Clear) Urine pH 8.0 H (4.5-7.5) Ur Specific [place] 1.016 (1.000-1.030) Urine Protein Negative (Negative) Urine Glucose (UA) Negative (Negative) Urine Ketones Negative (Negative) Urine Blood Negative (Negative) Urine Nitrite Negative (Negative) Urine Bilirubin Negative (Negative) Urine Urobilinogen Negative (Negative) Ur Leukocyte Esterase 1+ H (Negative) Urine WBC (Auto) >30 H (0-5) /hpf Urine RBC (Auto) 0-4 (0-4) /hpf U Hyaline Cast (Auto) 10-30 H (0-5) /lpf U Epithel Cells (Auto) 20-30 H (0-5) /lpf Urine Bacteria (Auto) Negative (Negative) COVID-19 Eval Order Covid19 Done at [facility] COVID-19 PCR NEGATIVE (Negative) 10/11/0301/22/20 01/22/20 Range/Units 13:24 13:24 13:24 WBC (4.8-10.8) K/uL RBC (4.2-5.4) M/uL Hgb (12.0-16.0) g/dL Hct (37-47) % MCV (80-100) fL MCH (25-34) pg MCHC (32-36) g/dL RDW Std Deviation (36.4-46.3) fL RDW Coeff of Robin (11.5-14.5) % Plt Count (130-400) K/uL MPV (7.4-10.4) fL Immature Gran % (Auto) % Neut % (Auto) % Lymph % (Auto) % Ford % (Auto) % Eos % (Auto) % Baso % (Auto) % Neut # (Auto) (1.4-6.5) K/uL Lymph # (Auto) (1.2-3.4) K/uL Ford # (Auto) (0.11-0.59) K/uL Eos # (Auto) (0-0.5) K/uL Baso # (Auto) (0-0.2) K/uL Immature Gran # (Auto) (0.00-0.02) K/uL ESR (0-21) mm/hr PT (9.0-12.0) Seconds INR (0.9-1.1) APTT (21.0-31.0) Seconds PTT Ratio ABG pH (7.35-7.45) ABG pCO2 (35-46) mmHg ABG pO2 (80-95) mmHg ABG HCO3 (19-24) mmol/L ABG O2 Saturation (90-95) % ABG Base Excess (-9-1.8) mEq/L Shan Test (Pos) Barometric Pressure mm/Hg Oxygen Given Sodium (136-145) mmol/L Potassium (3.5-5.1) mmol/L Chloride (98-107) mmol/L Carbon Dioxide (21-32) mmol/L Anion Gap (3-11) BUN (7-18) mg/dl Creatinine (0.6-1.2) mg/dl Est Cr Clr Drug Dosing Est GFR ( Amer) Est GFR (Non-Af Amer) BUN/Creatinine Ratio (10-20) Glucose (70-99) mg/dl POC Glucose (70-99) mg/dl Lactate 1.1 (0.4-2.0) mmol/L Calcium (8.5-10.1) mg/dl Magnesium (1.8-2.4) mg/dl Ferritin (8-388) ng/ml Total Bilirubin (0.2-1) mg/dl AST (15-37) U/L ALT (12-78) U/L Alkaline Phosphatase (45-117) U/L Ammonia (11-32) umol/L Lactate Dehydrogenase 249 H (84-246) U/L Total Creatine Kinase (26-192) U/L CK-MB (CK-2) (0.5-3.6) ng/ml CK/CKMB % Calc Troponin I (0-0.045) ng/ml C-Reactive Protein (0-0.29) mg/dl Total Protein (6.4-8.2) gm/dl Albumin (3.4-5.0) gm/dl Globulin (2.5-4.0) gm/dl Albumin/Globulin Ratio (0.9-2) Procalcitonin 0.65 H (0-0.5) ng/ml Urine Color Urine Appearance (Clear) Urine pH (4.5-7.5) Ur Specific [place] (1.000-1.030) Urine Protein (Negative) Urine Glucose (UA) (Negative) Urine Ketones (Negative) Urine Blood (Negative) Urine Nitrite (Negative) Urine Bilirubin (Negative) Urine Urobilinogen (Negative) Ur Leukocyte Esterase (Negative) Urine WBC (Auto) (0-5) /hpf Urine RBC (Auto) (0-4) /hpf U Hyaline Cast (Auto) (0-5) /lpf U Epithel Cells (Auto) (0-5) /lpf Urine Bacteria (Auto) (Negative) COVID-19 Eval Order COVID-19 PCR (Negative) 01/22/20 01/22/20 01/22/20 Range/Units 13:24 13:24 13:24 WBC (4.8-10.8) K/uL RBC (4.2-5.4) M/uL Hgb (12.0-16.0) g/dL Hct (37-47) % MCV (80-100) fL MCH (25-34) pg MCHC (32-36) g/dL RDW Std Deviation (36.4-46.3) fL RDW Coeff of Robin (11.5-14.5) % Plt Count (130-400) K/uL MPV (7.4-10.4) fL Immature Gran % (Auto) % Neut % (Auto) % Lymph % (Auto) % Ford % (Auto) % Eos % (Auto) % Baso % (Auto) % Neut # (Auto) (1.4-6.5) K/uL Lymph # (Auto) (1.2-3.4) K/uL Ford # (Auto) (0.11-0.59) K/uL Eos # (Auto) (0-0.5) K/uL Baso # (Auto) (0-0.2) K/uL Immature Gran # (Auto) (0.00-0.02) K/uL ESR 15 (0-21) mm/hr PT 10.8 (9.0-12.0) Seconds INR 1.0 (0.9-1.1) APTT 20.9 L (21.0-31.0) Seconds PTT Ratio 0.7 ABG pH (7.35-7.45) ABG pCO2 (35-46) mmHg ABG pO2 (80-95) mmHg ABG HCO3 (19-24) mmol/L ABG O2 Saturation (90-95) % ABG Base Excess (-9-1.8) mEq/L Shan Test (Pos) Barometric Pressure mm/Hg Oxygen Given Sodium 137 (136-145) mmol/L Potassium 4.3 (3.5-5.1) mmol/L Chloride 99 (98-107) mmol/L Carbon Dioxide 35 H (21-32) mmol/L Anion Gap 3.0 (3-11) BUN 14 (7-18) mg/dl Creatinine 0.81 (0.6-1.2) mg/dl Est Cr Clr Drug Dosing Not Reportable Est GFR ( Amer) 76.2 Est GFR (Non-Af Amer) 65.8 BUN/Creatinine Ratio 17.0 (10-20) Glucose 135 H (70-99) mg/dl POC Glucose (70-99) mg/dl Lactate (0.4-2.0) mmol/L Calcium 8.6 (8.5-10.1) mg/dl Magnesium 2.0 (1.8-2.4) mg/dl Ferritin 61.7 (8-388) ng/ml Total Bilirubin 0.3 (0.2-1) mg/dl AST 24 (15-37) U/L ALT 20 (12-78) U/L Alkaline Phosphatase 55 (45-117) U/L Ammonia (11-32) umol/L Lactate Dehydrogenase (84-246) U/L Total Creatine Kinase 38 (26-192) U/L CK-MB (CK-2) < 1.0 (0.5-3.6) ng/ml CK/CKMB % Calc TNP Troponin I 0.266 H* (0-0.045) ng/ml C-Reactive Protein 2.96 H (0-0.29) mg/dl Total Protein 7.4 (6.4-8.2) gm/dl Albumin 3.1 L (3.4-5.0) gm/dl Globulin 4.3 H (2.5-4.0) gm/dl Albumin/Globulin Ratio 0.7 L (0.9-2) Procalcitonin (0-0.5) ng/ml Urine Color Urine Appearance (Clear) Urine pH (4.5-7.5) Ur Specific [place] (1.000-1.030) Urine Protein (Negative) Urine Glucose (UA) (Negative) Urine Ketones (Negative) Urine Blood (Negative) Urine Nitrite (Negative) Urine Bilirubin (Negative) Urine Urobilinogen (Negative) Ur Leukocyte Esterase (Negative) Urine WBC (Auto) (0-5) /hpf Urine RBC (Auto) (0-4) /hpf U Hyaline Cast (Auto) (0-5) /lpf U Epithel Cells (Auto) (0-5) /lpf Urine Bacteria (Auto) (Negative) COVID-19 Eval Order COVID-19 PCR (Negative) 01/22/20 Range/Units 13:24 WBC 14.74 H (4.8-10.8) K/uL RBC 3.83 L (4.2-5.4) M/uL Hgb 12.3 (12.0-16.0) g/dL Hct 39.7 (37-47) % MCV 103.7 H (80-100) fL MCH 32.1 (25-34) pg MCHC 31.0 L (32-36) g/dL RDW Std Deviation 49.9 H (36.4-46.3) fL RDW Coeff of Robin 13.3 (11.5-14.5) % Plt Count 131 (130-400) K/uL MPV 11.6 H (7.4-10.4) fL Immature Gran % (Auto) 0.6 % Neut % (Auto) 93.3 % Lymph % (Auto) 2.2 % Ford % (Auto) 3.7 % Eos % (Auto) 0.1 % Baso % (Auto) 0.1 % Neut # (Auto) 13.74 H (1.4-6.5) K/uL Lymph # (Auto) 0.32 L (1.2-3.4) K/uL Ford # (Auto) 0.55 (0.11-0.59) K/uL Eos # (Auto) 0.02 (0-0.5) K/uL Baso # (Auto) 0.02 (0-0.2) K/uL Immature Gran # (Auto) 0.09 H (0.00-0.02) K/uL ESR (0-21) mm/hr PT (9.0-12.0) Seconds INR (0.9-1.1) APTT (21.0-31.0) Seconds PTT Ratio ABG pH (7.35-7.45) ABG pCO2 (35-46) mmHg ABG pO2 (80-95) mmHg ABG HCO3 (19-24) mmol/L ABG O2 Saturation (90-95) % ABG Base Excess (-9-1.8) mEq/L Shan Test (Pos) Barometric Pressure mm/Hg Oxygen Given Sodium (136-145) mmol/L Potassium (3.5-5.1) mmol/L Chloride (98-107) mmol/L Carbon Dioxide (21-32) mmol/L Anion Gap (3-11) BUN (7-18) mg/dl Creatinine (0.6-1.2) mg/dl Est Cr Clr Drug Dosing Est GFR ( Amer) Est GFR (Non-Af Amer) BUN/Creatinine Ratio (10-20) Glucose (70-99) mg/dl POC Glucose (70-99) mg/dl Lactate (0.4-2.0) mmol/L Calcium (8.5-10.1) mg/dl Magnesium (1.8-2.4) mg/dl Ferritin (8-388) ng/ml Total Bilirubin (0.2-1) mg/dl AST (15-37) U/L ALT (12-78) U/L Alkaline Phosphatase (45-117) U/L Ammonia (11-32) umol/L Lactate Dehydrogenase (84-246) U/L Total Creatine Kinase (26-192) U/L CK-MB (CK-2) (0.5-3.6) ng/ml CK/CKMB % Calc Troponin I (0-0.045) ng/ml C-Reactive Protein (0-0.29) mg/dl Total Protein (6.4-8.2) gm/dl Albumin (3.4-5.0) gm/dl Globulin (2.5-4.0) gm/dl Albumin/Globulin Ratio (0.9-2) Procalcitonin (0-0.5) ng/ml Urine Color Urine Appearance (Clear) Urine pH (4.5-7.5) Ur Specific [place] (1.000-1.030) Urine Protein (Negative) Urine Glucose (UA) (Negative) Urine Ketones (Negative) Urine Blood (Negative) Urine Nitrite (Negative) Urine Bilirubin (Negative) Urine Urobilinogen (Negative) Ur Leukocyte Esterase (Negative) Urine WBC (Auto) (0-5) /hpf Urine RBC (Auto) (0-4) /hpf U Hyaline Cast (Auto) (0-5) /lpf U Epithel Cells (Auto) (0-5) /lpf Urine Bacteria (Auto) (Negative) COVID-19 Eval Order COVID-19 PCR (Negative) Medications Administered Current Inpatient Medications Acetaminophen (Acetaminophen 325 Mg Tab) 650 mg PO Q4H PRN PRN Reason: Pain or Fever Stop: 02/21/20 16:26 Al Hydrox/Mg Hydrox/Simethicone (Aluminum/Magnesium Susp 30 Ml Udc) 15 ml PO Q4H PRN PRN Reason: Dyspepsia Stop: 02/21/20 16:26 Albuterol (Albut/Ipratrop 3mg/0.5mg Neb 3 Ml Vial) 3 ml INH QIDR PRN PRN Reason: Shortness Of Breath Or Wheezin Stop: 02/21/20 16:26 Ertapenem (Ertapenem Consult Active) 1 ea N/A UD PRN PRN Reason: Consult Stop: 02/22/20 08:59 Ferrous Sulfate (Ferrous Sulfate 325 Mg Tab) 325 mg PO DAILY [facility] Stop: 02/22/20 08:59 Last Admin: 01/23/20 09:06 Dose: 325 mg Documented by: Fluticasone Furoate (Fluticasone Furoate 100mcg 14 Puffs/Inhaler) 1 puffs INH DAILY [facility] Stop: 02/22/20 08:59 Last Admin: 01/23/20 09:05 Dose: 1 puffs Documented by: Heparin Sodium (Porcine) (Heparin Sod 5,000 Unit/0.5 Ml Vial) 5,000 units SQ Q12 [facility] Stop: 02/21/20 20:59 Last Admin: 01/23/20 09:07 Dose: Not Given Documented by: Sodium Chloride (Nss 1000ml) 1,000 mls @ 80 mls/hr IV .[id number] [facility] Last Infusion: 01/22/20 21:05 Dose: 0 mls/hr Documented by: Ertapenem 1,000 mg/ Sodium (Chloride) 60 mls @ 100 mls/hr IV Q24H [facility] Stop: 01/29/20 22:59 Last Infusion: 01/23/20 01:06 Dose: Infused Documented by: Levothyroxine Sodium (Levothyroxine Sodium 50 Mcg Tablet) 50 mcg PO DAILYBB [facility] Stop: 02/22/20 06:29 Last Admin: 01/23/20 05:49 Dose: 50 mcg Documented by: Lisinopril (Lisinopril 10 Mg Tab) 10 mg PO QAM [facility] Stop: 02/22/20 08:59 Last Admin: 01/23/20 09:05 Dose: 10 mg Documented by: Magnesium Hydroxide (Magnesium Hydroxide Susp 30 Ml Udc) 30 ml PO Q12H PRN PRN Reason: Constipation Stop: 02/21/20 16:26 Metoprolol Succinate (Metoprolol Succ 25mg Ext Rel Tab) 25 mg PO HS [facility] Stop: 02/21/20 20:59 Last Admin: 01/22/20 21:00 Dose: Not Given Documented by: Montelukast Sodium (Montelukast Sodium 10 Mg Tablet) 10 mg PO DAILY [facility] Stop: 02/22/20 08:59 Last Admin: 01/23/20 09:06 Dose: 10 mg Documented by: Ondansetron HCl (Ondansetron Inj 2 Mg/Ml 2 Ml Vial) 4 mg IV Q6H PRN PRN Reason: Nausea Stop: 02/21/20 16:26 Polyethylene Glycol (Polyethylene (Miralax) 17 Gm Pack) 17 gm PO DAILY PRN PRN Reason: Constipation Stop: 02/21/20 16:26 Prednisone (Prednisone 2.5 Mg Tab) 2.5 mg PO DAILY [facility] Stop: 02/22/20 08:59 Last Admin: 01/23/20 09:06 Dose: 2.5 mg Documented by: Raloxifene HCl (Raloxifene Hcl 60 Mg Tab) 60 mg PO QPM [facility] Stop: 02/21/20 20:59 Last Admin: 01/22/20 20:59 Dose: Not Given Documented by: Trazodone HCl (Trazodone Hcl 50 Mg Tab) 50 mg PO BID@1700,2100 [facility] Stop: 02/21/20 16:59 Last Admin: 01/22/20 20:59 Dose: Not Given Documented by: Umeclidinium/Vilanterol (Umeclidinium/Vilanterol 62.5/25mcg 7 Puffs/Inhaler) 1 puffs INH DAILY [facility] Stop: 02/22/20 08:59 Last Admin: 01/23/20 09:05 Dose: 1 puffs Documented by:
--- NOTE | 2020-01-23 11:04 | XRay Report ---
XR chest 1V portable HISTORY: 84 years-old Female follow up, hx of vomiting acute chest pain with vomiting COMPARISON: Chest radiograph 01/22/2020, chest CT 08/09/2018 TECHNIQUE: Portable AP view of the chest FINDINGS: Cardiac silhouette is enlarged, unchanged. Calcified plaque of the thoracic aortic arch. Chronic blun ting of the costophrenic angles. No pneumothorax, large pleural effusion, overt pulmonary edema or ai rspace consolidation typical for pneumonia. Advanced emphysema with chronic fibrotic change. 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 IMPRESSION: 1. Cardiomegaly without acute process. 2. Severe emphysema with chronic interstitial coarsening/fibrosis. ACT 112: Negative or not required by law. The above report was generated using voice recognition software. It may contain grammatical, syntax o r spelling errors. Electronically signed by: Pelon Dunne M.D. 01/23/2020 11:02 AM
[2020-01-23] MEDS: traZODone HCL 50 MG TAB PO SCH ×2 (17:02→20:21)
--- NOTE | 2020-01-23 18:04 | Electrocardiogram Report ---
Test Reason : Blood Pressure : / mmHG Vent. Rate : 090 BPM Atrial Rate : 090 BPM P-R Int : 186 ms QRS Dur : 124 ms QT Int : 404 ms P-R-T Axes : 066 -71 036 degrees QTc Int : 494 ms Poor data quality, interpretation may be adversely affected Normal sinus rhythm Possible Left atrial enlargement Right bundle branch block Left anterior fascicular block Bifascicular block Abnormal ECG When compared with ECG of 09-AUG-2018 12:41, Left anterior fascicular block is now Present QT has lengthened Confirmed by Chadd Junior ([id number]) on 01/23/2020 6:03:44 PM Referred By: REFERRED SELF Confirmed By:Syed Junior
[2020-01-23] MEDS: METOPROLOL SUCC 25MG EXT REL TAB PO SCH (20:20)
[2020-01-23] MEDS: RALOXIFENE HCL 60 MG TAB PO SCH (20:20)
[2020-01-24] MEDS: LEVOTHYROXINE SODIUM 50 MCG TABLET PO SCH (05:42)
[2020-01-24 07:17] LABS: Hematocrit (blood only) 35.3 % (37-47); Hemoglobin 11.1 g/dL (12.0-16.0); Mean Corpuscular Hemoglobin 32.1 pg (25-34); Mean Corpuscular Hgb Conc 31.4 g/dL (32-36); Mean Platelet Volume 11.6 fL (7.4-10.4); Platelet Count 235 K/uL (130-400); RDW Coefficient of Variation 13.5 % (11.5-14.5); Red Blood Count 3.46 M/uL (4.2-5.4)
[2020-01-24 07:50] LABS: BUN Creatinine Ratio 29.5 (10-20); Calcium 8.4 mg/dl (8.5-10.1); Est GFR (African American) 91.8; Est GFR (Non-African American) 79.2; Magnesium 2.1 mg/dl (1.8-2.4); Phosphorus 2.1 mg/dl (2.5-4.9); Potassium 3.6 mmol/L (3.5-5.1)
[2020-01-24] MEDS: FLUTICASONE FUROATE 100MCG 14 PUFFS/INHALER INH SCH (08:23)
[2020-01-24] MEDS: UMECLIDINIUM/VILANTEROL 62.5/25MCG 7 PUFFS/INHALER INH SCH (08:23)
[2020-01-24] MEDS: FERROUS SULFATE 325 MG TAB PO SCH (08:24)
[2020-01-24] MEDS: MONTELUKAST SODIUM 10 MG TABLET PO SCH (08:24)
[2020-01-24] MEDS: HEPARIN SOD 5,000 UNIT/0.5 ML VIAL SQ SCH ×2 (08:24→21:18)
[2020-01-24] MEDS: predniSONE 2.5 MG TAB PO SCH (08:24)
[2020-01-24] MEDS: lisinopriL 10 MG TAB PO SCH (08:24)
[2020-01-24] MEDS: guaiFENesin 600 MG TABCR PO SCH ×2 (08:27→21:17)
[2020-01-24] MEDS: traZODone HCL 50 MG TAB PO SCH ×2 (17:33→21:17)
[2020-01-24] MEDS ORDERED: POTASSIUM PHOS 3 MMOL/1 ML INFUSION IV STA (17:34)
--- NOTE | 2020-01-24 17:36 | Hospitalist Progress Note ---
Date of Service January 24, 2020 Assessment & Plan (1) Acute lower UTI (urinary tract infection): Sepsis 2/2 UTI Aspiration pneumonitis Mrs. Vanegas is a pleasant 84-year-old female who has significant past medical history of chronic respiratory failure with hypoxia and hypercapnia on chronic 4 L of O2, COPD, ulcerative colitis, HTN, hypothyroidism, cor pulmonale who presents to ED secondary to weakness, vomiting and lethargy x1 day. In ED patient remained hemodynamically stable although temp mildly elevated at 37.6. Lab work notable for leukocytosis 14.74k, H&H 12.3 and 39.7, platelet 131, BUN 14, creatinine 0.81, glucose 135, LDH 249, troponin 0.266, CRP 2.96, procal citonin mildly elevated 0.65. Covid PCR was negative. Pt also tachycardic on admission, c/w sepsis given leukocytosis, elev. procal, altered mental status Chest x-ray for cardiomegaly and chronic interstitial pulmonary opacities similar to prior study. No acute change. In ED she received 2 g IV Rocephin, 500 mL IVF and 1 g IV acetaminophen. The night of admission however pt vomited and had a fever, concern for aspiration CXR obtained, no opacities noted Pt treated for aspiration pneumonitis Ceftriaxone was switched to ertapenem overnight, will continue blood cultx - NGTD urine culture -less than 1000 col., this is in the setting of prior Bactrim use though diet as tolerated PT/OT Pt's son CHRISTIE Vanegas contacted at [phone] and updated. He agrees with assessment and treatment plan. He lives in [place]. (2) Elevated troponin: no chest pain or change in ecg, likely chronic trend x 2 but otherwise no intervention warranted at this time (3) Chronic respiratory failure with hypoxia and hypercapnia: 2/2 to COPD/Pulm Fibrosis continue supplemental oxygen (4) COPD (chronic obstructive pulmonary disease): no acute exac continue Trelegy and prn duoneb continue O2 supplementation (5) Essential hypertension: Blood pressure mildly elevated in ED 155/67 likely in setting of not taking a.m. meds along with situational resume metoprolol and lisinopril BP at goal now (6) Hypothyroidism: continue levothyroxine (7) Ulcerative colitis: continue Mesalamine (8) Osteoporosis: continue Evista (9) DVT prophylaxis: SQ Heparin Disposition: med tele Follow up: PCP Dr. Gray upon discharge Admission and Anticipated Discharge Date Admission Date: January 22, 2020 Subjective Pt is sitting up in the chair, in NAD. Supplemental oxygen applied. Pt denies any chest pain shortness of breath, abd. pain, nausea or vomiting. States she feels well and is inquiring about going home. Asked her to use spi rometer, pt could not use it well by herself. Review of Systems Review of Systems: All systems reviewed & are unremarkable except as noted in HPI & below Constitutional: no fever and no chills Respiratory: no cough and no dyspnea Cardiovascular: no chest pain and no palpitations Gastrointestinal: no abdominal pain and no vomiting Physical Exam Physical Exam: Constitutional: WD/WN, female, vitals as above, NAD, sitting up in bed, pleasant, conversing easily Head: Normocephalic, Atraumatic Eyes: PERRL, EOMI, conjunctivae normal, anicteric sclerae ENMT: external ear and nose normal, oropharynx normal dry mucous membranes Neck: trachea midline, no thyromegaly normal visual inspection Respiratory: On O2 via NC, decreased aeration throughout, normal respiratory effort, lungs clear to auscultation, no wheeze, or crackles, very mild rhonchi noted. Normal insp/exp effort, no accessory muscle use Cardiovascular: RRR, no murmur, no edema Vessels: no JVD or carotid bruit Chest: normal inspection of chest Abdomen: normal bowel sounds, soft, nontender Musculoskeletal: no cyanosis or clubbing, extremities motor strength 5/5 Skin: no rashes, warm and dry normal turgor Neurologic: PERRL, EOMI, no face palsy, no dysarthria CN's II-XI intact bilaterally and moves all extremities Psychiatric: A+Ox3 to basics, euthymic affect Results & Data Results & Data ([facility]) Vital Signs (Past 12 Hours) Vital Signs Temp Pulse Pulse Resp BP Pulse Ox 01/24/20 15:39 36.9 C 88 20 160/72 H 95 01/24/20 15:00 95 H 01/24/20 12:03 37.0 C 85 18 147/80 H 95 01/24/20 08:22 36.9 C 91 H 18 154/76 H 97 01/24/20 07:45 80 Laboratory Results 01/24/20 01/24/20 Range/Units 06:36 06:36 WBC 11.60 H (4.8-10.8) K/uL RBC 3.46 L (4.2-5.4) M/uL Hgb 11.1 L (12.0-16.0) g/dL Hct 35.3 L (37-47) % MCV 102.0 H (80-100) fL MCH 32.1 (25-34) pg MCHC 31.4 L (32-36) g/dL RDW Std Deviation 50.0 H (36.4-46.3) fL RDW Coeff of Robin 13.5 (11.5-14.5) % Plt Count 235 (130-400) K/uL MPV 11.6 H (7.4-10.4) fL Sodium 138 (136-145) mmol/L Potassium 3.6 (3.5-5.1) mmol/L Chloride 100 (98-107) mmol/L Carbon Dioxide 31 (21-32) mmol/L Anion Gap 7.0 (3-11) BUN 20 H (7-18) mg/dl Creatinine 0.68 D (0.6-1.2) mg/dl Est Cr Clr Drug Dosing 47.0 ml/min Est GFR ( Amer) 91.8 Est GFR (Non-Af Amer) 79.2 BUN/Creatinine Ratio 29.5 H (10-20) Glucose 86 (70-99) mg/dl Calcium 8.4 L (8.5-10.1) mg/dl Phosphorus 2.1 L (2.5-4.9) mg/dl Magnesium 2.1 (1.8-2.4) mg/dl Medications Administered Current Inpatient Medications Acetaminophen (Acetaminophen 325 Mg Tab) 650 mg PO Q4H PRN PRN Reason: Pain or Fever Stop: 02/21/20 16:26 Al Hydrox/Mg Hydrox/Simethicone (Aluminum/Magnesium Susp 30 Ml Udc) 15 ml PO Q4H PRN PRN Reason: Dyspepsia Stop: 02/21/20 16:26 Albuterol (Albut/Ipratrop 3mg/0.5mg Neb 3 Ml Vial) 3 ml INH QIDR PRN PRN Reason: Shortness Of Breath Or Wheezin Stop: 02/21/20 16:26 Ertapenem (Ertapenem Consult Active) 1 ea N/A UD PRN PRN Reason: Consult Stop: 02/22/20 08:59 Ferrous Sulfate (Ferrous Sulfate 325 Mg Tab) 325 mg PO DAILY [facility] Stop: 02/22/20 08:59 Last Admin: 01/24/20 08:24 Dose: 325 mg Documented by: Fluticasone Furoate (Fluticasone Furoate 100mcg 14 Puffs/Inhaler) 1 puffs INH DAILY [facility] Stop: 02/22/20 08:59 Last Admin: 01/24/20 08:23 Dose: 1 puffs Documented by: Guaifenesin (Guaifenesin 600 Mg Tabcr) 600 mg PO Q12 [facility] Stop: 02/23/20 08:59 Last Admin: 01/24/20 08:27 Dose: 600 mg Documented by: Heparin Sodium (Porcine) (Heparin Sod 5,000 Unit/0.5 Ml Vial) 5,000 units SQ Q12 [facility] Stop: 02/21/20 20:59 Last Admin: 01/24/20 08:24 Dose: 5,000 units Documented by: Sodium Chloride (Nss 1000ml) 1,000 mls @ 80 mls/hr IV .[id number] [facility] Last Infusion: 01/22/20 21:05 Dose: 0 mls/hr Documented by: Ertapenem 1,000 mg/ Sodium (Chloride) 60 mls @ 100 mls/hr IV Q24H [facility] Stop: 01/29/20 22:59 Last Infusion: 01/23/20 23:32 Dose: Infused Documented by: Levothyroxine Sodium (Levothyroxine Sodium 50 Mcg Tablet) 50 mcg PO DAILYBB [facility] Stop: 02/22/20 06:29 Last Admin: 01/24/20 05:42 Dose: 50 mcg Documented by: Lisinopril (Lisinopril 10 Mg Tab) 10 mg PO QAM [facility] Stop: 02/22/20 08:59 Last Admin: 01/24/20 08:24 Dose: 10 mg Documented by: Magnesium Hydroxide (Magnesium Hydroxide Susp 30 Ml Udc) 30 ml PO Q12H PRN PRN Reason: Constipation Stop: 02/21/20 16:26 Metoprolol Succinate (Metoprolol Succ 25mg Ext Rel Tab) 25 mg PO HS [facility] Stop: 02/21/20 20:59 Last Admin: 01/23/20 20:20 Dose: 25 mg Documented by: Montelukast Sodium (Montelukast Sodium 10 Mg Tablet) 10 mg PO DAILY [facility] Stop: 02/22/20 08:59 Last Admin: 01/24/20 08:24 Dose: 10 mg Documented by: Ondansetron HCl (Ondansetron Inj 2 Mg/Ml 2 Ml Vial) 4 mg IV Q6H PRN PRN Reason: Nausea Stop: 02/21/20 16:26 Polyethylene Glycol (Polyethylene (Miralax) 17 Gm Pack) 17 gm PO DAILY PRN PRN Reason: Constipation Stop: 02/21/20 16:26 Potassium Phosphate (Potassium Phos 3 Mmol/1 Ml Infusion) 9 mmol IV NOW STA Stop: 01/24/20 17:35 Prednisone (Prednisone 2.5 Mg Tab) 2.5 mg PO DAILY [facility] Stop: 02/22/20 08:59 Last Admin: 01/24/20 08:24 Dose: 2.5 mg Documented by: Raloxifene HCl (Raloxifene Hcl 60 Mg Tab) 60 mg PO QPM [facility] Stop: 02/21/20 20:59 Last Admin: 01/23/20 20:20 Dose: 60 mg Documented by: Trazodone HCl (Trazodone Hcl 50 Mg Tab) 50 mg PO BID@1700,2100 [facility] Stop: 02/21/20 16:59 Last Admin: 01/24/20 17:33 Dose: 50 mg Documented by: Umeclidinium/Vilanterol (Umeclidinium/Vilanterol 62.5/25mcg 7 Puffs/Inhaler) 1 puffs INH DAILY [facility] Stop: 02/22/20 08:59 Last Admin: 01/24/20 08:23 Dose: 1 puffs Documented by:
[2020-01-24] MEDS ORDERED: POTASSIUM PHOSPHATE 9 MMOL in SODIUM CHLORIDE 0.9% 250 ML IV ONE (17:45)
--- NOTE | 2020-01-24 18:11 | Emergency Department Note ---
History of Present Illness General Chief complaint: Lethargic Time Seen by Provider: 01/22/20 12:00 Source: patient, EMS, RN notes reviewed and old records reviewed Mode of arrival: EMS Limitations: altered mental status History of Present Illness Provider complaint: Altered mental status Onset (ago): day(s) 1 Associated symptoms: + fever/chills and + nausea/vomiting Treatments prior to arrival: other (Bactrim) This is an 84-year-old female sent in by her retirement over concerns of the patient has an altered mental status. The patient also has a fever here. She is being treated for urinary tract infection and has received 2 doses of Bactrim since yesterday. Upon arrival to the emergency department the patient is pleasant and has no complaints. She did not receive anything for the fever prior to arrival. Home Medications Home Medications Medication Instructions Recorded Confirmed Type levothyroxine 50 mcg PO QAM 07/03/18 01/22/20 History mesalamine [Apriso] 1.5 g PO QAM 07/03/18 01/22/20 History raloxifene [Evista] 60 mg PO QPM 07/03/18 01/22/20 History afhhtfeiejj-cexvtavqb-lbsjvyat 1 puff INHALATION DAILY 08/09/18 01/22/20 History [Trelegy Ellipta] ipratropium-albuterol 3 ml INHALATION QID PRN 08/09/18 01/22/20 History lisinopril 10 mg PO QAM 08/09/18 01/22/20 History metoprolol succinate 25 mg PO HS 08/09/18 01/22/20 History trazodone 50 mg PO UD 08/09/18 01/22/20 History Multivitamin Gummy 1 tab PO DAILY 01/22/20 01/22/20 History ferrous sulfate 325 mg PO DAILY 01/22/20 01/22/20 History loperamide [Imodium A-D] 0 mg PO Q4H PRN 01/22/20 01/22/20 History montelukast 10 mg PO DAILY 01/22/20 01/22/20 History prednisone 2.5 mg PO DAILY 01/22/20 01/22/20 History sulfamethoxazole-trimethoprim 1 tab PO BID 01/22/20 01/22/20 History [Bactrim DS] Allergies Allergy/AdvReac Type Severity Reaction Status Date / Time Penicillins Allergy Verified 01/22/20 14:08 sulfamethoxazole AdvReac Unknown Unverified 01/22/20 14:19 [From Bactrim] trimethoprim [From Bactrim] AdvReac Unknown Unverified 01/22/20 14:19 Past Med/Surg History Medical History Adjustment disorder with mixed anxiety and depressed mood COPD (chronic obstructive pulmonary disease) Essential hypertension Hypercholesteremia Hypothyroidism Iron deficiency anemia Osteoporosis Requires supplemental oxygen Ulcerative colitis Surgical History History of D&C History of tonsillectomy Family History Other Family history non-contributory Social History Smoking Status: Former smoker Cigarettes Per Day: pt unsure; Second Hand Exposure: No; Do You Dip or Chew Tobacco: No; Hx Alcohol Use: No Hx Substance Use: No Preferred Language: Wolof Communication Ability: Effective Solution [employer] Senior Executive Required: No Beliefs That Will Affect Care: None marital status: / Current Living Situation: Alone and Other Current Living Situation Comment: has 07/11 caregivers How many Children do You have: 1 Other Information That Helps Us Care for You: No Feels Safe at Home: Yes Assistive Devices: Denture - Upper, Denture - Lower, Glasses, Oxygen - Continuous and Walker Assistive Devices Comment: reading glasses Review of Systems A total of 10 systems reviewed and were otherwise negative Physical Exam VITAL SIGNS - Vital signs and nursing notes were reviewed. GENERAL - 84-year-old female appearing stated age who is in no acute distress. Communicates well with provider and answers questions appropriately. SKIN - Without rashes. HEAD - NC/AT. EYES - PERRL with EOMI bilaterally. Sclera anicteric. Palpebral conjunctiva pink and moist with no injection noted. EARS - No deformities of external structures noted on gross examination bilaterally. No pain elicited with palpation of the tragus bilaterally. External auditory canals without discharge or otorrhea. Tympanic membranes pearly williamson without retraction or bulging. No fluid or purulent material visualized behind the TM. Handle of malleus, umbo, cone of light, pars tensa/flaccid all easily visualized. NOSE - Midline and without cyanosis. No epistaxis or purulent drainage noted. Septum midline without deviation or septal hematoma noted. MOUTH/OROPHARYNX - Without perioral cyanosis. Buccal mucosa pink and moist and without leukoplakia. Tongue midline with equal elevation of palate bilaterally. No tonsillar hypertrophy, erythema, or exudates noted. dentition noted. NECK - Neck with FROM. Supple to palpation. lymphadenopathy noted. No nuchal rigidity. LUNGS - Chest wall symmetric without accessory muscle use, intercostals retractions, or central cyanosis. Normal vesicular breath sounds CTA B/L. No wheezes, rales, or rhonchi appreciated. CARDIAC - RRR with S1/S2. No murmur, rubs, or gallops appreciated. ABDOMEN - Abdominal contour without pulsations or visible masses. BS normoactive all four quadrants. No tenderness, palpable masses, hepatosplenomegaly, or ascites noted. EXTREMITIES - No clubbing or peripheral cyanosis. No pretibial edema present. +3/5 radial, posterior tibial, and dorsalis pedis pulses palpated throughout. +5/5 strength noted in UE/LE bilaterally. NEUROLOGIC - Cranial nerves II through XII grossly intact. Sensory intact to light touch throughout. Patellar reflexes +2/4. PSYCH - A&Ox3 and cooperates fully with examiner. Pt is very pleasant and interacts well with examiner. Course Administered Medications Ferrous Sulfate (Ferrous Sulfate 325 Mg Tab) 325 mg PO DAILY [facility] Stop: 02/22/20 08:59 Last Admin: 01/24/20 08:24 Dose: 325 mg Documented by: [id number] Admin: 01/23/20 09:06 Dose: 325 mg Documented by: [id number] Fluticasone Furoate (Fluticasone Furoate 100mcg 14 Puffs/Inhaler) 1 puffs INH DAILY P[facility]LO Stop: 02/22/20 08:59 Last Admin: 01/24/20 08:23 Dose: 1 puffs Documented by: [id number] Admin: 01/23/20 09:05 Dose: 1 puffs Documented by: [id number] Guaifenesin (Guaifenesin 600 Mg Tabcr) 600 mg PO Q12 PABLO Stop: 02/23/20 08:59 Last Admin: 01/24/20 08:27 Dose: 600 mg Documented by: [id number] Heparin Sodium (Porcine) (Heparin Sod 5,000 Unit/0.5 Ml Vial) 5,000 units SQ Q12 [facility] Stop: 02/21/20 20:59 Last Admin: 01/24/20 08:24 Dose: 5,000 units Documented by: [id number] Cosigned by: [id number] Admin: 01/23/20 20:21 Dose: 5,000 units Documented by: [id number] Cosigned by: [id number] Admin: 01/23/20 09:07 Dose: Not Given Documented by: [id number] Admin: 01/22/20 20:59 Dose: Not Given Documented by: [id number] Sodium Chloride (Nss 1000ml) 1,000 mls @ 80 mls/hr IV .[id number] [facility] Last Infusion: 01/22/20 21:05 Dose: 0 mls/hr Documented by: [id number] Admin: 01/22/20 16:53 Dose: 80 mls/hr Documented by: [id number] Ertapenem 1,000 mg/ Sodium (Chloride) 60 mls @ 100 mls/hr IV Q24H [facility] Stop: 01/29/20 22:59 Last Infusion: 01/23/20 23:32 Dose: 0 mls/hr Documented by: [id number] Admin: 01/23/20 22:39 Dose: 100 mls/hr Documented by: [id number] Infusion: 01/23/20 01:06 Dose: 0 mls/hr Documented by: [id number] Admin: 01/23/20 00:18 Dose: 100 mls/hr Documented by: [id number] Levothyroxine Sodium (Levothyroxine Sodium 50 Mcg Tablet) 50 mcg PO DAILYBB [facility] Stop: 02/22/20 06:29 Last Admin: 01/24/20 05:42 Dose: 50 mcg Documented by: [id number] Admin: 01/23/20 05:49 Dose: 50 mcg Documented by: [id number] Lisinopril (Lisinopril 10 Mg Tab) 10 mg PO QAM [facility] Stop: 02/22/20 08:59 Last Admin: 01/24/20 08:24 Dose: 10 mg Documented by: [id number] Admin: 01/23/20 09:05 Dose: 10 mg Documented by: [id number] Metoprolol Succinate (Metoprolol Succ 25mg Ext Rel Tab) 25 mg PO HS [facility] Stop: 02/21/20 20:59 Last Admin: 01/23/20 20:20 Dose: 25 mg Documented by: [id number] Admin: 01/22/20 21:00 Dose: Not Given Documented by: [id number] Montelukast Sodium (Montelukast Sodium 10 Mg Tablet) 10 mg PO DAILY [facility]LO Stop: 02/22/20 08:59 Last Admin: 01/24/20 08:24 Dose: 10 mg Documented by: [id number] Admin: 01/23/20 09:06 Dose: 10 mg Documented by: [id number] Prednisone (Prednisone 2.5 Mg Tab) 2.5 mg PO DAILY P[facility]LO Stop: 02/22/20 08:59 Last Admin: 01/24/20 08:24 Dose: 2.5 mg Documented by: [id number] Admin: 01/23/20 09:06 Dose: 2.5 mg Documented by: [id number] Raloxifene HCl (Raloxifene Hcl 60 Mg Tab) 60 mg PO QPM [facility] Stop: 02/21/20 20:59 Last Admin: 01/23/20 20:20 Dose: 60 mg Documented by: [id number] Admin: 01/22/20 20:59 Dose: Not Given Documented by: [id number] Trazodone HCl (Trazodone Hcl 50 Mg Tab) 50 mg PO BID@1700,2100 [facility] Stop: 02/21/20 16:59 Last Admin: 01/24/20 17:33 Dose: 50 mg Documented by: [id number] Admin: 01/23/20 20:21 Dose: 50 mg Documented by: [id number] Admin: 01/23/20 17:02 Dose: 50 mg Documented by: [id number] Admin: 01/22/20 20:59 Dose: Not Given Documented by: [id number] Admin: 01/22/20 17:53 Dose: 50 mg Documented by: [id number] Umeclidinium/Vilanterol (Umeclidinium/Vilanterol 62.5/25mcg 7 Puffs/Inhaler) 1 puffs INH DAILY [facility]LO Stop: 02/22/20 08:59 Last Admin: 01/24/20 08:23 Dose: 1 puffs Documented by: [id number] Admin: 01/23/20 09:05 Dose: 1 puffs Documented by: [id number] Discontinued Medications Acetaminophen (Acetaminophen 1000 Mg/100 Ml Iv) 1,000 mg IV ONE ONE Stop: 01/22/20 22:26 Last Admin: 01/22/20 22:33 Dose: 1,000 mg Documented by: [id number] Sodium Chloride (Nss 1000ml) 500 mls @ 999 mls/hr IV .Q31M ONE Stop: 01/22/20 12:56 Last Infusion: 01/22/20 14:16 Dose: 0 mls/hr Documented by: [id number] Admin: 01/22/20 13:45 Dose: 999 mls/hr Documented by: [id number] Acetaminophen (Ofirmev) 1,000 mg in 100 mls @ 400 mls/hr IV NOW STA Stop: 01/22/20 12:40 Last Infusion: 01/22/20 14:00 Dose: 0 mls/hr Documented by: [id number] Admin: 01/22/20 13:45 Dose: 400 mls/hr Documented by: [id number] Ceftriaxone Sodium (Rocephin) 2,000 mg in 70 mls @ 140 mls/hr IV NOW STA Stop: 01/22/20 14:19 Last Infusion: 01/22/20 15:50 Dose: 0 mls/hr Documented by: [id number] Admin: 01/22/20 15:15 Dose: 140 mls/hr Documented by: [id number] Furosemide 20 mg/ Syringe 2 mls @ 4 mls/min IV ONE ONE Stop: 01/22/20 21:16 Last Admin: 01/22/20 21:51 Dose: 4 mls/min Documented by: [id number] Methylprednisolone 40 mg/ (Syringe) 0.64 mls @ 1.5 mls/min IV NOW STA Stop: 01/22/20 22:29 Last Admin: 01/22/20 23:18 Dose: 1.5 mls/min Documented by: [id number] Magnesium Sulfate/Dextrose (Magnesium Sulfate / D5w) 1 gm in 100 mls @ 50 mls/hr IV ONE ONE Stop: 01/23/20 00:26 Last Infusion: 01/23/20 02:18 Dose: 0 mls/hr Documented by: [id number] Admin: 01/22/20 23:20 Dose: 50 mls/hr Documented by: [id number] Ipratropium [place] (Ipratropium [place] Neb Soln 0.02% 2.5 Ml Vial) 0.5 mg INH NOW STA Stop: 01/22/20 22:30 Last Admin: 01/22/20 22:37 Dose: 0.5 mg Documented by: [id number] Levalbuterol HCl (Levalbuterol 1.25mg/0.5ml Neb) 1.25 mg INH NOW STA Stop: 01/22/20 22:30 Last Admin: 01/22/20 22:37 Dose: 1.25 mg Documented by: [id number] Ondansetron HCl (Ondansetron Inj 2 Mg/Ml 2 Ml Vial) 4 mg IV NOW STA Stop: 01/22/20 12:27 Last Admin: 01/22/20 13:46 Dose: 4 mg Documented by: [id number] Medical Decision Making Differential Diagnosis Infection, dehydration, metabolic abnormality, hypo/hyperglycemia, electrolyte disturbance, anemia, hypoxia, cardiac sources, intracerebral event, toxicologic, neurologic, as well as other pathologies. Medical Records Attestation: I reviewed the patient's medical records. Home Medications Current Medication List: was personally reviewed by me Laboratory Data Attestation: I reviewed the patient's lab results. Result diagrams: 01/24/20 06:36 01/24/20 06:36 Lab Results 01/22/20 01/22/20 01/22/20 Range/Units 13:24 13:24 13:24 WBC 14.74 H (4.8-10.8) K/uL RBC 3.83 L (4.2-5.4) M/uL Hgb 12.3 (12.0-16.0) g/dL Hct 39.7 (37-47) % MCV 103.7 H (80-100) fL MCH 32.1 (25-34) pg MCHC 31.0 L (32-36) g/dL RDW Std Deviation 49.9 H (36.4-46.3) fL RDW Coeff of Robin 13.3 (11.5-14.5) % Plt Count 131 (130-400) K/uL MPV 11.6 H (7.4-10.4) fL Immature Gran % (Auto) 0.6 % Neut % (Auto) 93.3 % Lymph % (Auto) 2.2 % [place] % (Auto) 3.7 % Eos % (Auto) 0.1 % Baso % (Auto) 0.1 % Neut # (Auto) 13.74 H (1.4-6.5) K/uL Lymph # (Auto) 0.32 L (1.2-3.4) K/uL [place] # (Auto) 0.55 (0.11-0.59) K/uL Eos # (Auto) 0.02 (0-0.5) K/uL Baso # (Auto) 0.02 (0-0.2) K/uL Immature Gran # (Auto) 0.09 H (0.00-0.02) K/uL ESR 15 (0-21) mm/hr PT 10.8 (9.0-12.0) Seconds INR 1.0 (0.9-1.1) APTT 20.9 L (21.0-31.0) Seconds PTT Ratio 0.7 Sodium (136-145) mmol/L Potassium (3.5-5.1) mmol/L Chloride (98-107) mmol/L Carbon Dioxide (21-32) mmol/L Anion Gap (3-11) BUN (7-18) mg/dl Creatinine (0.6-1.2) mg/dl Est Cr Clr Drug Dosing Est GFR ( Amer) Est GFR (Non-Af Amer) BUN/Creatinine Ratio (10-20) Glucose (70-99) mg/dl Lactate (0.4-2.0) mmol/L Calcium (8.5-10.1) mg/dl Magnesium (1.8-2.4) mg/dl Ferritin (8-388) ng/ml Total Bilirubin (0.2-1) mg/dl AST (15-37) U/L ALT (12-78) U/L Alkaline Phosphatase (45-117) U/L Lactate Dehydrogenase (84-246) U/L Total Creatine Kinase (26-192) U/L CK-MB (CK-2) (0.5-3.6) ng/ml CK/CKMB % Calc Troponin I (0-0.045) ng/ml C-Reactive Protein (0-0.29) mg/dl Total Protein (6.4-8.2) gm/dl Albumin (3.4-5.0) gm/dl Globulin (2.5-4.0) gm/dl Albumin/Globulin Ratio (0.9-2) Procalcitonin (0-0.5) ng/ml Urine Color Urine Appearance (Clear) Urine pH (4.5-7.5) Ur Specific [place] (1.000-1.030) Urine Protein (Negative) Urine Glucose (UA) (Negative) Urine Ketones (Negative) Urine Blood (Negative) Urine Nitrite (Negative) Urine Bilirubin (Negative) Urine Urobilinogen (Negative) Ur Leukocyte Esterase (Negative) Urine WBC (Auto) (0-5) /hpf Urine RBC (Auto) (0-4) /hpf U Hyaline Cast (Auto) (0-5) /lpf U Epithel Cells (Auto) (0-5) /lpf Urine Bacteria (Auto) (Negative) COVID-19 Eval Order COVID-19 PCR (Negative) 01/22/20 01/22/20 01/22/20 Range/Units 13:24 13:24 13:24 WBC (4.8-10.8) K/uL RBC (4.2-5.4) M/uL Hgb (12.0-16.0) g/dL Hct (37-47) % MCV (80-100) fL MCH (25-34) pg MCHC (32-36) g/dL RDW Std Deviation (36.4-46.3) fL RDW Coeff of Robin (11.5-14.5) % Plt Count (130-400) K/uL MPV (7.4-10.4) fL Immature Gran % (Auto) % Neut % (Auto) % Lymph % (Auto) % [place] % (Auto) % Eos % (Auto) % Baso % (Auto) % Neut # (Auto) (1.4-6.5) K/uL Lymph # (Auto) (1.2-3.4) K/uL [place] # (Auto) (0.11-0.59) K/uL Eos # (Auto) (0-0.5) K/uL Baso # (Auto) (0-0.2) K/uL Immature Gran # (Auto) (0.00-0.02) K/uL ESR (0-21) mm/hr PT (9.0-12.0) Seconds INR (0.9-1.1) APTT (21.0-31.0) Seconds PTT Ratio Sodium 137 (136-145) mmol/L Potassium 4.3 (3.5-5.1) mmol/L Chloride 99 (98-107) mmol/L Carbon Dioxide 35 H (21-32) mmol/L Anion Gap 3.0 (3-11) BUN 14 (7-18) mg/dl Creatinine 0.81 (0.6-1.2) mg/dl Est Cr Clr Drug Dosing Not Reportable Est GFR ( Amer) 76.2 Est GFR (Non-Af Amer) 65.8 BUN/Creatinine Ratio 17.0 (10-20) Glucose 135 H (70-99) mg/dl Lactate 1.1 (0.4-2.0) mmol/L Calcium 8.6 (8.5-10.1) mg/dl Magnesium 2.0 (1.8-2.4) mg/dl Ferritin 61.7 (8-388) ng/ml Total Bilirubin 0.3 (0.2-1) mg/dl AST 24 (15-37) U/L ALT 20 (12-78) U/L Alkaline Phosphatase 55 (45-117) U/L Lactate Dehydrogenase 249 H (84-246) U/L Total Creatine Kinase 38 (26-192) U/L CK-MB (CK-2) < 1.0 (0.5-3.6) ng/ml CK/CKMB % Calc TNP Troponin I 0.266 H* (0-0.045) ng/ml C-Reactive Protein 2.96 H (0-0.29) mg/dl Total Protein 7.4 (6.4-8.2) gm/dl Albumin 3.1 L (3.4-5.0) gm/dl Globulin 4.3 H (2.5-4.0) gm/dl Albumin/Globulin Ratio 0.7 L (0.9-2) Procalcitonin (0-0.5) ng/ml Urine Color Urine Appearance (Clear) Urine pH (4.5-7.5) Ur Specific [place] (1.000-1.030) Urine Protein (Negative) Urine Glucose (UA) (Negative) Urine Ketones (Negative) Urine Blood (Negative) Urine Nitrite (Negative) Urine Bilirubin (Negative) Urine Urobilinogen (Negative) Ur Leukocyte Esterase (Negative) Urine WBC (Auto) (0-5) /hpf Urine RBC (Auto) (0-4) /hpf U Hyaline Cast (Auto) (0-5) /lpf U Epithel Cells (Auto) (0-5) /lpf Urine Bacteria (Auto) (Negative) COVID-19 Eval Order COVID-19 PCR (Negative) 01/22/20 01/22/20 01/22/20 Range/Units 13:24 13:24 13:24 WBC (4.8-10.8) K/uL RBC (4.2-5.4) M/uL Hgb (12.0-16.0) g/dL Hct (37-47) % MCV (80-100) fL MCH (25-34) pg MCHC (32-36) g/dL RDW Std Deviation (36.4-46.3) fL RDW Coeff of Robin (11.5-14.5) % Plt Count (130-400) K/uL MPV (7.4-10.4) fL Immature Gran % (Auto) % Neut % (Auto) % Lymph % (Auto) % [place] % (Auto) % Eos % (Auto) % Baso % (Auto) % Neut # (Auto) (1.4-6.5) K/uL Lymph # (Auto) (1.2-3.4) K/uL [place] # (Auto) (0.11-0.59) K/uL Eos # (Auto) (0-0.5) K/uL Baso # (Auto) (0-0.2) K/uL Immature Gran # (Auto) (0.00-0.02) K/uL ESR (0-21) mm/hr PT (9.0-12.0) Seconds INR (0.9-1.1) APTT (21.0-31.0) Seconds PTT Ratio Sodium (136-145) mmol/L Potassium (3.5-5.1) mmol/L Chloride (98-107) mmol/L Carbon Dioxide (21-32) mmol/L Anion Gap (3-11) BUN (7-18) mg/dl Creatinine (0.6-1.2) mg/dl Est Cr Clr Drug Dosing Est GFR ( Amer) Est GFR (Non-Af Amer) BUN/Creatinine Ratio (10-20) Glucose (70-99) mg/dl Lactate (0.4-2.0) mmol/L Calcium (8.5-10.1) mg/dl Magnesium (1.8-2.4) mg/dl Ferritin (8-388) ng/ml Total Bilirubin (0.2-1) mg/dl AST (15-37) U/L ALT (12-78) U/L Alkaline Phosphatase (45-117) U/L Lactate Dehydrogenase (84-246) U/L Total Creatine Kinase (26-192) U/L CK-MB (CK-2) (0.5-3.6) ng/ml CK/CKMB % Calc Troponin I (0-0.045) ng/ml C-Reactive Protein (0-0.29) mg/dl Total Protein (6.4-8.2) gm/dl Albumin (3.4-5.0) gm/dl Globulin (2.5-4.0) gm/dl Albumin/Globulin Ratio (0.9-2) Procalcitonin 0.65 H (0-0.5) ng/ml Urine Color Urine Appearance (Clear) Urine pH (4.5-7.5) Ur Specific [place] (1.000-1.030) Urine Protein (Negative) Urine Glucose (UA) (Negative) Urine Ketones (Negative) Urine Blood (Negative) Urine Nitrite (Negative) Urine Bilirubin (Negative) Urine Urobilinogen (Negative) Ur Leukocyte Esterase (Negative) Urine WBC (Auto) (0-5) /hpf Urine RBC (Auto) (0-4) /hpf U Hyaline Cast (Auto) (0-5) /lpf U Epithel Cells (Auto) (0-5) /lpf Urine Bacteria (Auto) (Negative) COVID-19 Eval Order Covid19 Done at [facility] COVID-19 PCR NEGATIVE (Negative) 01/22/20 Range/Units 13:45 WBC (4.8-10.8) K/uL RBC (4.2-5.4) M/uL Hgb (12.0-16.0) g/dL Hct (37-47) % MCV (80-100) fL MCH (25-34) pg MCHC (32-36) g/dL RDW Std Deviation (36.4-46.3) fL RDW Coeff of Robin (11.5-14.5) % Plt Count (130-400) K/uL MPV (7.4-10.4) fL Immature Gran % (Auto) % Neut % (Auto) % Lymph % (Auto) % [place] % (Auto) % Eos % (Auto) % Baso % (Auto) % Neut # (Auto) (1.4-6.5) K/uL Lymph # (Auto) (1.2-3.4) K/uL [place] # (Auto) (0.11-0.59) K/uL Eos # (Auto) (0-0.5) K/uL Baso # (Auto) (0-0.2) K/uL Immature Gran # (Auto) (0.00-0.02) K/uL ESR (0-21) mm/hr PT (9.0-12.0) Seconds INR (0.9-1.1) APTT (21.0-31.0) Seconds PTT Ratio Sodium (136-145) mmol/L Potassium (3.5-5.1) mmol/L Chloride (98-107) mmol/L Carbon Dioxide (21-32) mmol/L Anion Gap (3-11) BUN (7-18) mg/dl Creatinine (0.6-1.2) mg/dl Est Cr Clr Drug Dosing Est GFR ( Amer) Est GFR (Non-Af Amer) BUN/Creatinine Ratio (10-20) Glucose (70-99) mg/dl Lactate (0.4-2.0) mmol/L Calcium (8.5-10.1) mg/dl Magnesium (1.8-2.4) mg/dl Ferritin (8-388) ng/ml Total Bilirubin (0.2-1) mg/dl AST (15-37) U/L ALT (12-78) U/L Alkaline Phosphatase (45-117) U/L Lactate Dehydrogenase (84-246) U/L Total Creatine Kinase (26-192) U/L CK-MB (CK-2) (0.5-3.6) ng/ml CK/CKMB % Calc Troponin I (0-0.045) ng/ml C-Reactive Protein (0-0.29) mg/dl Total Protein (6.4-8.2) gm/dl Albumin (3.4-5.0) gm/dl Globulin (2.5-4.0) gm/dl Albumin/Globulin Ratio (0.9-2) Procalcitonin (0-0.5) ng/ml Urine Color Yellow Urine Appearance Clear (Clear) Urine pH 8.0 H (4.5-7.5) Ur Specific [place] 1.016 (1.000-1.030) Urine Protein Negative (Negative) Urine Glucose (UA) Negative (Negative) Urine Ketones Negative (Negative) Urine Blood Negative (Negative) Urine Nitrite Negative (Negative) Urine Bilirubin Negative (Negative) Urine Urobilinogen Negative (Negative) Ur Leukocyte Esterase 1+ H (Negative) Urine WBC (Auto) >30 H (0-5) /hpf Urine RBC (Auto) 0-4 (0-4) /hpf U Hyaline Cast (Auto) 10-30 H (0-5) /lpf U Epithel Cells (Auto) 20-30 H (0-5) /lpf Urine Bacteria (Auto) Negative (Negative) COVID-19 Eval Order COVID-19 PCR (Negative) Imaging Data Radiologist's Impression: [place], [place] [phone] XRay Report Patient: BETTY CORDONAdmit Date: 01/22/20 MR#: [id number]: [address] Acct ID:[id number]: Date: [address] [place] [address] Zip: [place] [address] Age: 84Location: ED Sex: FRoom/Bed: Att Phy:Diagnosis: LETHARGIC Dori Phy: Su Gray M.D.Service Date: 01/22/20 [facility] Phy:Interpreting Phy: Steven Bright MD Admit Phy: Ordering Phy: Justin Coe MD cc: ~ XR chest 1V portable CLINICAL HISTORY: SEPSIS COMPARISON STUDY: 08/09/2018 FINDINGS: The heart is enlarged. There are bilateral interstitial pulmonary opacities, similar to the prior study and likely chronic. There is no lobar consolidation. There are no significant pleural effusions.[ IMPRESSION: Cardiomegaly and chronic interstitial pulmonary opacities similar to the prior study ACT 112: Negative or not required by law. Electronically signed by: Steven Bright M.D. 01/22/2020 2:25 PM Dictated: 01/22/20 1424 Transcribed: 01/22/201423 ECG Data Attestation: I personally reviewed and interpreted this ECG as follows: Indication: + altered mental status Rate (beats per minute): 90 Rhythm: + normal sinus ECG Intervals/blocks: + Left anterior fascicular block and + Right Bundle branch block ECG [place]iota: + Normal ECG ST segments: no ST depression and no ST elevation Comparison ECG Date: from (08/09/18) Change: the following changes noted (Fascicular block noted) MDM Narrative This is a Recombine downtime chart. Patient was seen and evaluated as above in room B7. Review was performed of nursing notes and vital signs. I did review pertinent previous visits and patient history. After obtaining a thorough history and physical examination the above work up was performed. This is an 84-year-old female who presents emergency department complaining of altered mental status. The patient is also febrile. She is negative for COVID. She does have an elevation in her white blood cell count. She was started on IV Rocephin and given normal saline bolus. I did discuss the case with the hospitalist service who did agreed admit the patient. While in the department, I personally reevaluated the patient several times and each time the patient was found to be resting comfortably. The patient was educated upon management, educated upon todays findings/results, educated upon importance of follow up from today's visit, educated upon symptoms in which to return, had questions answered prior to discharge, verbalized understanding, and was discharged home in good condition. An order was placed for continuous cardiac monitoring. The monitor shows a rate of 76 with Normal Sinus rhythm. The patient was evaluated during the global COVID-19 pandemic, and that diagnosis was suspected/considered upon their initial presentation. Their evaluation, treatment and testing was consistent with current guidelines for patients who present with complaints or symptoms that may be related to COVID- 19. Impression & Plan Fever, Acute alteration in mental status, Acute UTI Discharge Plan Visit Data Chief Complaint: Lethargic ED Provider: Justin Coe Discharge Problem: Fever, Acute alteration in mental status, Acute UTI Patient Disposition: Admitted As Inpatient Discharge Instructions Interventions: ED Discharge Assessment Last Done: 01/22/20 16:00 Discharge Problem: Fever Qualifiers: Fever type: unspecified Qualified Code(s): R50.9 - Fever, unspecified
[2020-01-24] MEDS: LOPERAMIDE HCL 2 MG CAP PO PRN (18:12)
[2020-01-24] MEDS: METOPROLOL SUCC 25MG EXT REL TAB PO SCH (21:17)
[2020-01-24] MEDS: RALOXIFENE HCL 60 MG TAB PO SCH (21:18)
[2020-01-25] MEDS: ERTAPENEM SODIUM 1,000 MG in SODIUM CHLORIDE 0.9% 50 ML IV SCH (00:02)
[2020-01-25] MEDS: LEVOTHYROXINE SODIUM 50 MCG TABLET PO SCH (05:39)
[2020-01-25 06:36] LABS: Hematocrit (blood only) 36.6 % (37-47); Hemoglobin 11.2 g/dL (12.0-16.0); Mean Corpuscular Hemoglobin 31.5 pg (25-34); Mean Corpuscular Hgb Conc 30.6 g/dL (32-36); Mean Corpuscular Volume 103.1 fL (80-100); Mean Platelet Volume 11.3 fL (7.4-10.4); Platelet Count 247 K/uL (130-400); RDW Coefficient of Variation 13.3 % (11.5-14.5); RDW Standard Deviation 50.7 fL (36.4-46.3); Red Blood Count 3.55 M/uL (4.2-5.4); White Blood Count 7.73 K/uL (4.8-10.8)
[2020-01-25 07:20] LABS: BUN Creatinine Ratio 25.1 (10-20); Calcium 8.7 mg/dl (8.5-10.1); Creatinine Clr Calc Pharmacy 54.1 ml/min; Est GFR (African American) 96.2; Phosphorus 2.6 mg/dl (2.5-4.9)
[2020-01-25] MEDS: UMECLIDINIUM/VILANTEROL 62.5/25MCG 7 PUFFS/INHALER INH SCH (07:46)
[2020-01-25] MEDS: FLUTICASONE FUROATE 100MCG 14 PUFFS/INHALER INH SCH (07:46)
[2020-01-25] MEDS: HEPARIN SOD 5,000 UNIT/0.5 ML VIAL SQ SCH ×2 (07:46→20:22)
[2020-01-25] MEDS: FERROUS SULFATE 325 MG TAB PO SCH (07:47)
[2020-01-25] MEDS: guaiFENesin 600 MG TABCR PO SCH ×2 (07:47→20:21)
[2020-01-25] MEDS: predniSONE 2.5 MG TAB PO SCH (07:47)
[2020-01-25] MEDS: lisinopriL 10 MG TAB PO SCH (07:47)
[2020-01-25] MEDS: MONTELUKAST SODIUM 10 MG TABLET PO SCH (07:47)
[2020-01-25 08:47] LABS: Magnesium 2.1 mg/dl (1.8-2.4); Potassium 3.4 mmol/L (3.5-5.1)
--- NOTE | 2020-01-25 12:33 | Hospitalist Progress Note ---
Date of Service January 25, 2020 Assessment & Plan (1) Acute lower UTI (urinary tract infection): Sepsis 2/2 UTI Aspiration pneumonitis Mrs. Vanegas is a pleasant 84-year-old female who has significant past medical history of chronic respiratory failure with hypoxia and hypercapnia on chronic 4 L of O2, COPD, ulcerative colitis, HTN, hypothyroidism, cor pulmonale who presents to ED secondary to weakness, vomiting and lethargy x1 day. In ED patient remained hemodynamically stable although temp mildly elevated at 37.6. Lab work notable for leukocytosis 14.74k, H&H 12.3 and 39.7, platelet 131, BUN 14, creatinine 0.81, glucose 135, LDH 249, troponin 0.266, CRP 2.96, proca lcitonin mildly elevated 0.65. Covid PCR was negative. Pt also tachycardic on admission, c/w sepsis given leukocytosis, elev. procal, altered mental status Chest x-ray for cardiomegaly and chronic interstitial pulmonary opacities similar to prior study. No acute change. In ED she received 2 g IV Rocephin, 500 mL IVF and 1 g IV acetaminophen. The night of admission however pt vomited and had a fever, concern for aspiration CXR obtained, no opacities noted Pt treated for aspiration pneumonitis Ceftriaxone was switched to ertapenem overnight, will continue blood cultx - NGTD urine culture -less than 1000 col., this is in the setting of prior Bactrim use though diet as tolerated PT/OT Pt's son CHRISTIE Vanegas contacted at [phone] and updated. He agrees with assessment and treatment plan. He lives in [place]. (2) Elevated troponin: no chest pain or change in ecg, likely chronic trend x 2 but otherwise no intervention warranted at this time (3) Chronic respiratory failure with hypoxia and hypercapnia: 2/2 to COPD/Pulm Fibrosis continue supplemental oxygen (4) COPD (chronic obstructive pulmonary disease): no acute exac continue Trelegy and prn duoneb continue O2 supplementation (5) Essential hypertension: Blood pressure mildly elevated in ED 155/67 likely in setting of not taking a.m. meds along with situational resume metoprolol and lisinopril BP mildly elevated (6) Hypothyroidism: continue levothyroxine (7) Ulcerative colitis: continue Mesalamine (8) Osteoporosis: continue Evista (9) DVT prophylaxis: SQ Heparin Disposition: med tele Follow up: PCP Dr. Gray upon discharge Admission and Anticipated Discharge Date Admission Date: January 22, 2020 Subjective Pt is laying in bed, in NAD. Supplemental oxygen applied. Pt denies any chest pain shortness of breath, abd. pain, nausea or vomiting. States she feels well and is inquiring about going home. Song catheter placed in ED, will remove prior to DC. Pt's son updated over the phone. Review of Systems Review of Systems: All systems reviewed & are unremarkable except as noted in HPI & below Constitutional: no fever and no chills Respiratory: no cough and no dyspnea Cardiovascular: no chest pain and no palpitations Gastrointestinal: no abdominal pain, no nausea and no vomiting Physical Exam Physical Exam: Constitutional: WD/WN, female, vitals as above, NAD, sitting up in bed, pleasant, conversing easily Head: Normocephalic, Atraumatic Eyes: PERRL, EOMI, conjunctivae normal, anicteric sclerae ENMT: external ear and nose normal, oropharynx normal dry mucous membranes Neck: trachea midline, no thyromegaly normal visual inspection Respiratory: On O2 via NC, decreased aeration throughout, normal respiratory effort, lungs clear to auscultation, no wheeze, or crackles, very mild rhonchi noted. Normal insp/exp effort, no accessory muscle use Cardiovascular: RRR, no murmur, no edema Vessels: no JVD or carotid bruit Chest: normal inspection of chest Abdomen: normal bowel sounds, soft, nontender : Song catheter placed Musculoskeletal: no cyanosis or clubbing, extremities motor strength 5/5 Skin: no rashes, warm and dry normal turgor Neurologic: PERRL, EOMI, no face palsy, no dysarthria CN's II-XI intact bilaterally and moves all extremities Psychiatric: A+Ox3 to basics, euthymic affect Results & Data Results & Data ([facility]) Vital Signs (Past 12 Hours) Vital Signs Temp Pulse Pulse Resp BP BP Pulse Ox 01/25/20 11:48 37.1 C 83 20 148/70 H 95 01/25/20 07:39 37.3 C 85 20 148/80 H 95 01/25/20 03:33 36.6 C 57 L 18 155/72 H 99 01/25/20 00:31 77 Laboratory Results 01/25/20 01/25/20 01/25/20 Range/Units 08:10 06:05 06:05 WBC 7.73 (4.8-10.8) K/uL RBC 3.55 L (4.2-5.4) M/uL Hgb 11.2 L (12.0-16.0) g/dL Hct 36.6 L (37-47) % MCV 103.1 H (80-100) fL MCH 31.5 (25-34) pg MCHC 30.6 L (32-36) g/dL RDW Std Deviation 50.7 H (36.4-46.3) fL RDW Coeff of Robin 13.3 (11.5-14.5) % Plt Count 247 (130-400) K/uL MPV 11.3 H (7.4-10.4) fL Sodium 140 (136-145) mmol/L Potassium 3.4 L (3.5-5.1) mmol/L Chloride 102 (98-107) mmol/L Carbon Dioxide 31 (21-32) mmol/L Anion Gap 7.0 (3-11) BUN 15 (7-18) mg/dl Creatinine 0.59 L (0.6-1.2) mg/dl Est Cr Clr Drug Dosing 54.1 ml/min Est GFR ( Amer) 96.2 Est GFR (Non-Af Amer) 83.0 BUN/Creatinine Ratio 25.1 H (10-20) Glucose 71 (70-99) mg/dl Calcium 8.7 (8.5-10.1) mg/dl Phosphorus 2.6 (2.5-4.9) mg/dl Magnesium 2.1 (1.8-2.4) mg/dl Medications Administered Current Inpatient Medications Acetaminophen (Acetaminophen 325 Mg Tab) 650 mg PO Q4H [facility] Stop: 02/24/20 12:29 Al Hydrox/Mg Hydrox/Simethicone (Aluminum/Magnesium Susp 30 Ml Udc) 15 ml PO Q4H PRN PRN Reason: Dyspepsia Stop: 02/21/20 16:26 Albuterol (Albut/Ipratrop 3mg/0.5mg Neb 3 Ml Vial) 3 ml INH QIDR PRN PRN Reason: Shortness Of Breath Or Wheezin Stop: 02/21/20 16:26 Ertapenem (Ertapenem Consult Active) 1 ea N/A UD PRN PRN Reason: Consult Stop: 02/22/20 08:59 Ferrous Sulfate (Ferrous Sulfate 325 Mg Tab) 325 mg PO DAILY [facility] Stop: 02/22/20 08:59 Last Admin: 01/25/20 07:47 Dose: 325 mg Documented by: Fluticasone Furoate (Fluticasone Furoate 100mcg 14 Puffs/Inhaler) 1 puffs INH DAILY [facility] Stop: 02/22/20 08:59 Last Admin: 01/25/20 07:46 Dose: 1 puffs Documented by: Guaifenesin (Guaifenesin 600 Mg Tabcr) 600 mg PO Q12 [facility] Stop: 02/23/20 08:59 Last Admin: 01/25/20 07:47 Dose: 600 mg Documented by: Heparin Sodium (Porcine) (Heparin Sod 5,000 Unit/0.5 Ml Vial) 5,000 units SQ Q12 [facility] Stop: 02/21/20 20:59 Last Admin: 01/25/20 07:46 Dose: 5,000 units Documented by: Sodium Chloride (Nss 1000ml) 1,000 mls @ 80 mls/hr IV .[id number] [facility] Last Infusion: 01/22/20 21:05 Dose: 0 mls/hr Documented by: Ertapenem 1,000 mg/ Sodium (Chloride) 60 mls @ 100 mls/hr IV Q24H [facility] Stop: 01/29/20 22:59 Last Infusion: 01/25/20 00:45 Dose: Infused Documented by: Levothyroxine Sodium (Levothyroxine Sodium 50 Mcg Tablet) 50 mcg PO DAILYBB [facility] Stop: 02/22/20 06:29 Last Admin: 01/25/20 05:39 Dose: 50 mcg Documented by: Lisinopril (Lisinopril 10 Mg Tab) 10 mg PO QAM [facility] Stop: 02/22/20 08:59 Last Admin: 01/25/20 07:47 Dose: 10 mg Documented by: Loperamide HCl (Loperamide Hcl 2 Mg Cap) 2 mg PO Q4H PRN PRN Reason: Loose Stool Stop: 02/23/20 17:38 Last Admin: 01/24/20 18:12 Dose: 2 mg Documented by: Magnesium Hydroxide (Magnesium Hydroxide Susp 30 Ml Udc) 30 ml PO Q12H PRN PRN Reason: Constipation Stop: 02/21/20 16:26 Metoprolol Succinate (Metoprolol Succ 25mg Ext Rel Tab) 25 mg PO HS [facility] Stop: 02/21/20 20:59 Last Admin: 01/24/20 21:17 Dose: 25 mg Documented by: Montelukast Sodium (Montelukast Sodium 10 Mg Tablet) 10 mg PO DAILY [facility] Stop: 02/22/20 08:59 Last Admin: 01/25/20 07:47 Dose: 10 mg Documented by: Ondansetron HCl (Ondansetron Inj 2 Mg/Ml 2 Ml Vial) 4 mg IV Q6H PRN PRN Reason: Nausea Stop: 02/21/20 16:26 Polyethylene Glycol (Polyethylene (Miralax) 17 Gm Pack) 17 gm PO DAILY PRN PRN Reason: Constipation Stop: 02/21/20 16:26 Potassium Chloride (Potassium Chloride 20 Meq Tabcr) 20 meq PO 1245 ONE Stop: 01/25/20 12:46 Prednisone (Prednisone 2.5 Mg Tab) 2.5 mg PO DAILY [facility] Stop: 02/22/20 08:59 Last Admin: 01/25/20 07:47 Dose: 2.5 mg Documented by: Raloxifene HCl (Raloxifene Hcl 60 Mg Tab) 60 mg PO QPM [facility] Stop: 02/21/20 20:59 Last Admin: 01/24/20 21:18 Dose: 60 mg Documented by: Trazodone HCl (Trazodone Hcl 50 Mg Tab) 50 mg PO BID@1700,2100 [facility] Stop: 02/21/20 16:59 Last Admin: 01/24/20 21:17 Dose: 50 mg Documented by: Umeclidinium/Vilanterol (Umeclidinium/Vilanterol 62.5/25mcg 7 Puffs/Inhaler) 1 puffs INH DAILY [facility] Stop: 02/22/20 08:59 Last Admin: 01/25/20 07:46 Dose: 1 puffs Documented by:
[2020-01-25] MEDS ORDERED: POTASSIUM CHLORIDE 20 MEQ TABCR PO ONE (12:45)
[2020-01-25] MEDS: ACETAMINOPHEN 325 MG TAB PO SCH ×3 (12:50→20:21)
[2020-01-25] MEDS: LOPERAMIDE HCL 2 MG CAP PO PRN (12:50)
[2020-01-25] MEDS: traZODone HCL 50 MG TAB PO SCH ×2 (17:06→20:21)
[2020-01-25] MEDS: METOPROLOL SUCC 25MG EXT REL TAB PO SCH (20:21)
[2020-01-25] MEDS: RALOXIFENE HCL 60 MG TAB PO SCH (20:21)
[2020-01-26] MEDS: ERTAPENEM SODIUM 1,000 MG in SODIUM CHLORIDE 0.9% 50 ML IV SCH (00:11)
[2020-01-26] MEDS: ACETAMINOPHEN 325 MG TAB PO SCH ×4 (00:17→12:09)
[2020-01-26 06:41] LABS: Creatinine Clr Calc Pharmacy 55.1 ml/min; Est GFR (African American) 96.7; Est GFR (Non-African American) 83.5
[2020-01-26] MEDS: LEVOTHYROXINE SODIUM 50 MCG TABLET PO SCH (06:41)
[2020-01-26] MEDS: FLUTICASONE FUROATE 100MCG 14 PUFFS/INHALER INH SCH (07:43)
[2020-01-26] MEDS: UMECLIDINIUM/VILANTEROL 62.5/25MCG 7 PUFFS/INHALER INH SCH (07:43)
[2020-01-26] MEDS: MONTELUKAST SODIUM 10 MG TABLET PO SCH (07:43)
[2020-01-26] MEDS: FERROUS SULFATE 325 MG TAB PO SCH (07:44)
[2020-01-26] MEDS: HEPARIN SOD 5,000 UNIT/0.5 ML VIAL SQ SCH (07:44)
[2020-01-26] MEDS: predniSONE 2.5 MG TAB PO SCH (07:44)
[2020-01-26] MEDS: guaiFENesin 600 MG TABCR PO SCH (07:44)
[2020-01-26] MEDS: lisinopriL 10 MG TAB PO SCH (07:44)
[2020-01-26 08:35] LABS: Hematocrit (blood only) 38.4 % (37-47); Hemoglobin 12.1 g/dL (12.0-16.0); Mean Corpuscular Hemoglobin 31.8 pg (25-34); Mean Corpuscular Hgb Conc 31.5 g/dL (32-36); Mean Corpuscular Volume 100.8 fL (80-100); Mean Platelet Volume 11.1 fL (7.4-10.4); Platelet Count 255 K/uL (130-400); RDW Coefficient of Variation 13.3 % (11.5-14.5); RDW Standard Deviation 49.1 fL (36.4-46.3); Red Blood Count 3.81 M/uL (4.2-5.4); White Blood Count 7.81 K/uL (4.8-10.8)
[2020-01-26 09:25] LABS: Calcium 9.4 mg/dl (8.5-10.1); Creatinine Clr Calc Pharmacy 52.4 ml/min; Est GFR (African American) 95.1; Est GFR (Non-African American) 82.1; Potassium 3.3 mmol/L (3.5-5.1)
[2020-01-26] MEDS ORDERED: POTASSIUM CHLORIDE 20 MEQ TABCR PO ONE (12:00)
--- NOTE | 2020-01-26 12:00 | Hospitalist Progress Note ---
Date of Service January 26, 2020 Assessment & Plan (1) Acute lower UTI (urinary tract infection): Sepsis 2/2 UTI Aspiration pneumonitis Mrs. Vanegas is a pleasant 84-year-old female who has significant past medical history of chronic respiratory failure with hypoxia and hypercapnia on chronic 4 L of O2, COPD, ulcerative colitis, HTN, hypothyroidism, cor pulmonale who presents to ED secondary to weakness, vomiting and lethargy x1 day. In ED patient remained hemodynamically stable although temp mildly elevated at 37.6. Lab work notable for leukocytosis 14.74k, H&H 12.3 and 39.7, platelet 131, BUN 14, creatinine 0.81, glucose 135, LDH 249, troponin 0.266, CRP 2.96, proca lcitonin mildly elevated 0.65. Covid PCR was negative. Pt also tachycardic on admission, c/w sepsis given leukocytosis, elev. procal, altered mental status Chest x-ray for cardiomegaly and chronic interstitial pulmonary opacities similar to prior study. No acute change. In ED she received 2 g IV Rocephin, 500 mL IVF and 1 g IV acetaminophen. The night of admission however pt vomited and had a fever, concern for aspiration CXR obtained, no opacities noted Pt treated for aspiration pneumonitis Ceftriaxone was switched to ertapenem overnight, continued while inpt blood cultx - NGTD urine culture -less than 1000 col., this is in the setting of prior Bactrim use though diet as tolerated PT/OT Pt's son CHRISTIE Vanegas contacted at [phone] and updated. He agrees with assessment and treatment plan. He lives in [place]. (2) Elevated troponin: no chest pain or change in ecg, likely chronic trend x 2 but otherwise no intervention warranted at this time (3) Chronic respiratory failure with hypoxia and hypercapnia: 2/2 to COPD/Pulm Fibrosis continue supplemental oxygen (4) COPD (chronic obstructive pulmonary disease): no acute exac continue Trelegy and prn duoneb continue O2 supplementation (5) Essential hypertension: Blood pressure mildly elevated in ED 155/67 likely in setting of not taking a.m. meds along with situational resume metoprolol and lisinopril BP mildly elevated (6) Hypothyroidism: continue levothyroxine (7) Ulcerative colitis: continue Mesalamine (8) Osteoporosis: continue Evista (9) DVT prophylaxis: SQ Heparin Disposition: med tele Follow up: PCP Dr. Gray upon discharge Admission and Anticipated Discharge Date Admission Date: January 22, 2020 Subjective Pt is laying in bed, in NAD. Supplemental oxygen applied. Pt denies any chest pain shortness of breath, abd. pain, nausea or vomiting. States she feels well and is inquiring about going home. Song catheter was removed and patient voided spontaneously. Bladder ultrasound was also obtained later, patient not retaining urine. Review of Systems Review of Systems: All systems reviewed & are unremarkable except as noted in HPI & below Constitutional: no fever and no chills Respiratory: no cough and no dyspnea Cardiovascular: no chest pain and no palpitations Gastrointestinal: no abdominal pain, no nausea and no vomiting Genitourinary: no dysuria Physical Exam Physical Exam: Constitutional: WD/WN, female, vitals as above, NAD, sitting up in bed, pleasant, conversing easily, suppl. O2 applied via NC (chronic) Head: Normocephalic, Atraumatic Eyes: PERRL, EOMI, conjunctivae normal, anicteric sclerae ENMT: external ear and nose normal, oropharynx normal dry mucous membranes Neck: trachea midline, no thyromegaly normal visual inspection Respiratory: On O2 via NC, decreased aeration throughout, normal respiratory effort, lungs clear to auscultation, no wheeze, or crackles, very mild rhonchi noted. Normal insp/exp effort, no accessory muscle use Cardiovascular: RRR, no murmur, no edema Vessels: no JVD or carotid bruit Chest: normal inspection of chest Abdomen: normal bowel sounds, soft, nontender : Song catheter placed Musculoskeletal: no cyanosis or clubbing, extremities motor strength 5/5 Skin: no rashes, warm and dry normal turgor Neurologic: PERRL, EOMI, no face palsy, no dysarthria CN's II-XI intact bilaterally and moves all extremities Psychiatric: A+Ox3 to basics, euthymic affect Results & Data Results & Data ([facility]) Vital Signs (Past 12 Hours) Vital Signs Temp Pulse Resp BP Pulse Ox 01/26/20 03:45 36.5 C 78 20 186/83 H 99 01/25/20 20:20 93 H 177/85 H Laboratory Results 01/26/20 01/26/20 01/26/20 Range/Units 08:24 05:52 05:52 WBC 7.81 (4.8-10.8) K/uL RBC 3.81 L (4.2-5.4) M/uL Hgb 12.1 (12.0-16.0) g/dL Hct 38.4 (37-47) % MCV 100.8 H (80-100) fL MCH 31.8 (25-34) pg MCHC 31.5 L (32-36) g/dL RDW Std Deviation 49.1 H (36.4-46.3) fL RDW Coeff of Robin 13.3 (11.5-14.5) % Plt Count 255 (130-400) K/uL MPV 11.1 H (7.4-10.4) fL Sodium 138 (136-145) mmol/L Potassium 3.3 L (3.5-5.1) mmol/L Chloride 98 (98-107) mmol/L Carbon Dioxide 34 H (21-32) mmol/L Anion Gap 6.0 (3-11) BUN 11 (7-18) mg/dl Creatinine 0.61 0.58 L (0.6-1.2) mg/dl Est Cr Clr Drug Dosing 52.4 55.1 ml/min Est GFR ( Amer) 95.1 96.7 Est GFR (Non-Af Amer) 82.1 83.5 BUN/Creatinine Ratio 18.0 (10-20) Glucose 97 (70-99) mg/dl Calcium 9.4 (8.5-10.1) mg/dl Medications Administered Current Inpatient Medications Acetaminophen (Acetaminophen 325 Mg Tab) 650 mg PO Q4H [facility] Stop: 02/24/20 12:29 Last Admin: 01/26/20 07:44 Dose: 650 mg Documented by: Al Hydrox/Mg Hydrox/Simethicone (Aluminum/Magnesium Susp 30 Ml Udc) 15 ml PO Q4H PRN PRN Reason: Dyspepsia Stop: 02/21/20 16:26 Albuterol (Albut/Ipratrop 3mg/0.5mg Neb 3 Ml Vial) 3 ml INH QIDR PRN PRN Reason: Shortness Of Breath Or Wheezin Stop: 02/21/20 16:26 Cefuroxime Axetil (Cefuroxime Axetil 500 Mg Tab) 500 mg PO BID [facility] Stop: 02/02/20 12:59 Ferrous Sulfate (Ferrous Sulfate 325 Mg Tab) 325 mg PO DAILY [facility] Stop: 02/22/20 08:59 Last Admin: 01/26/20 07:44 Dose: 325 mg Documented by: Fluticasone Furoate (Fluticasone Furoate 100mcg 14 Puffs/Inhaler) 1 puffs INH DAILY [facility] Stop: 02/22/20 08:59 Last Admin: 01/26/20 07:43 Dose: 1 puffs Documented by: Guaifenesin (Guaifenesin 600 Mg Tabcr) 600 mg PO Q12 [facility] Stop: 02/23/20 08:59 Last Admin: 01/26/20 07:44 Dose: 600 mg Documented by: Heparin Sodium (Porcine) (Heparin Sod 5,000 Unit/0.5 Ml Vial) 5,000 units SQ Q12 [facility] Stop: 02/21/20 20:59 Last Admin: 01/26/20 07:44 Dose: 5,000 units Documented by: Sodium Chloride (Nss 1000ml) 1,000 mls @ 80 mls/hr IV .[id number] [facility] Last Infusion: 01/25/20 23:06 Dose: Infused Documented by: Levothyroxine Sodium (Levothyroxine Sodium 50 Mcg Tablet) 50 mcg PO DAILYBB [facility] Stop: 02/22/20 06:29 Last Admin: 01/26/20 06:41 Dose: 50 mcg Documented by: Lisinopril (Lisinopril 10 Mg Tab) 10 mg PO QAM [facility] Stop: 02/22/20 08:59 Last Admin: 01/26/20 07:44 Dose: 10 mg Documented by: Loperamide HCl (Loperamide Hcl 2 Mg Cap) 2 mg PO Q4H PRN PRN Reason: Loose Stool Stop: 02/23/20 17:38 Last Admin: 01/25/20 12:50 Dose: 2 mg Documented by: Magnesium Hydroxide (Magnesium Hydroxide Susp 30 Ml Udc) 30 ml PO Q12H PRN PRN Reason: Constipation Stop: 02/21/20 16:26 Metoprolol Succinate (Metoprolol Succ 25mg Ext Rel Tab) 25 mg PO HS [facility] Stop: 02/21/20 20:59 Last Admin: 01/25/20 20:21 Dose: 25 mg Documented by: Montelukast Sodium (Montelukast Sodium 10 Mg Tablet) 10 mg PO DAILY [facility] Stop: 02/22/20 08:59 Last Admin: 01/26/20 07:43 Dose: 10 mg Documented by: Ondansetron HCl (Ondansetron Inj 2 Mg/Ml 2 Ml Vial) 4 mg IV Q6H PRN PRN Reason: Nausea Stop: 02/21/20 16:26 Polyethylene Glycol (Polyethylene (Miralax) 17 Gm Pack) 17 gm PO DAILY PRN PRN Reason: Constipation Stop: 02/21/20 16:26 Potassium Chloride (Potassium Chloride 20 Meq Tabcr) 40 meq PO 1200 [facility] Stop: 01/26/20 12:01 Prednisone (Prednisone 2.5 Mg Tab) 2.5 mg PO DAILY [facility] Stop: 02/22/20 08:59 Last Admin: 01/26/20 07:44 Dose: 2.5 mg Documented by: Raloxifene HCl (Raloxifene Hcl 60 Mg Tab) 60 mg PO QPM [facility] Stop: 02/21/20 20:59 Last Admin: 01/25/20 20:21 Dose: 60 mg Documented by: Trazodone HCl (Trazodone Hcl 50 Mg Tab) 50 mg PO BID@1700,2100 [facility] Stop: 02/21/20 16:59 Last Admin: 01/25/20 20:21 Dose: 50 mg Documented by: Umeclidinium/Vilanterol (Umeclidinium/Vilanterol 62.5/25mcg 7 Puffs/Inhaler) 1 puffs INH DAILY [facility] Stop: 02/22/20 08:59 Last Admin: 01/26/20 07:43 Dose: 1 puffs Documented by:
--- NOTE | 2020-01-26 12:05 | Discharge Summary ---
Date of Service January 26, 2020 Admission HPI Per Admitting Provider Mrs. Vanegas is a pleasant 84-year-old female who has significant past medical history of chronic respiratory failure with hypoxia and hypercapnia on chronic 4 L of O2, COPD, ulcerative colitis, HTN, hypothyroidism, cor pulmonale who presents to ED secondary to weakness, vomiting and lethargy x1 day. Patient lives at home with 24/7 caregivers. Her caregiver is currently at bedside. Admits over the past 1 to 2 weeks she has been having increased urinary frequency, urgency and incontinence. There has also been noticeable sediment in urine. They called into PCP and she was started on oral Bactrim DS 1 tablet twice a day for possible UTI. She took 2 doses of the antibiotics and last evening had episode of emesis, was becoming more confused, weakness and lethargy. 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 EMS was summoned. In ED patient states, "I feel better." She denies any fever, chills, sweats, lightheadedness, dizziness, headache, chest pain, shortness of breath, cough, nausea, vomiting, abdominal pain, dysuria, hematuria, melena, hematochezia. Her last BM was at 4 AM this morning. Caregiver admits to fever of 100.7 this morning. ROS is slightly unreliable secondary to underlying cognition. According to caregiver she does have mild underlying dementia, but she does read on a daily basis. Over the past 24 hours she has had limited oral intake due to poor appetite. In ED patient remained hemodynamically stable although temp mildly elevated at 37.6. Lab work notable for leukocytosis 14.74k, H&H 12.3 and 39.7, platelet 131, BUN 14, creatinine 0.81, glucose 135, LDH 249, troponin 0.266, CRP 2.96, procalcitonin mildly elevated 0.65. Covid PCR was negative. Chest x-ray for cardiomegaly and chronic interstitial pulmonary opacities similar to prior study. No acute change. In ED she received 2 g IV Rocephin, 500 mL IVF and 1 g IV acetaminophen. Admission Exam Per Admitting Provider Constitutional: WD/WN, female, vitals as above, NAD, sitting up in bed, pleasant, conversing easily, drowsy but easily arouses to verbal stimulation Head: Normocephalic, Atraumatic Eyes: PERRL, conjunctivae normal, anicteric sclerae ENMT: external ear and nose normal, oropharynx normal dry mucous membranes Neck: trachea midline, no thyromegaly normal visual inspection Respiratory: On 4 L O2 via NC, decreased aeration throughout, normal respiratory effort, lungs clear to auscultation, no wheeze, rales, rhonchi. Normal insp/exp effort, no accessory muscle use Cardiovascular: RRR, no murmur, no edema Vessels: no JVD or carotid bruit Chest: normal inspection of chest Abdomen: normal bowel sounds, soft, nontender, no hepatosplenomegaly Musculoskeletal: no cyanosis or clubbing, extremities motor strength 5/5 Skin: no rashes, warm and dry normal turgor Neurologic: PERRL, EOMI, accommodation nl, no face palsy, no dysarthria CN's II-XI intact bilaterally and moves all extremities Psychiatric: A+Ox3 to basics, euthymic affect Lymphatic: no cervical or axillary lymphadenopathy : deferred Principal Diagnosis Sepsis, altered mental status, secondary to UTI Aspiration pneumonitis Discharge Exam Constitutional: WD/WN, female, vitals as above, NAD, sitting up in bed, pleasant, conversing easily, suppl. O2 applied via NC (chronic) Head: Normocephalic, Atraumatic Eyes: PERRL, EOMI, conjunctivae normal, anicteric sclerae ENMT: external ear and nose normal, oropharynx normal dry mucous membranes Neck: trachea midline, no thyromegaly normal visual inspection Respiratory: On O2 via NC, decreased aeration throughout, normal respiratory effort, lungs clear to auscultation, no wheeze, or crackles, very mild rhonchi noted. Normal insp/exp effort, no accessory muscle use Cardiovascular: RRR, no murmur, no edema Vessels: no JVD or carotid bruit Chest: normal inspection of chest Abdomen: normal bowel sounds, soft, nontender : Song catheter placed Musculoskeletal: no cyanosis or clubbing, extremities motor strength 5/5 Skin: no rashes, warm and dry normal turgor Neurologic: PERRL, EOMI, no face palsy, no dysarthria CN's II-XI intact bilaterally and moves all extremities Psychiatric: A+Ox3 to basics, euthymic affect Discharge Data Allergies Allergy/AdvReac Type Severity Reaction Status Date / Time Penicillins Allergy Unknown Unknown Verified 01/26/20 11:42 sulfamethoxazole AdvReac Mild LETHARGIC Unverified 01/26/20 11:42 [From Bactrim] trimethoprim [From Bactrim] AdvReac Mild LETHARGIC Unverified 01/26/20 11:42 Consultations 01/22/20 14:07 ED Decision to Admit Stat 01/22/20 16:27 Consult Case Management - Discharge Planning Routine Hospital Course (1) Acute lower UTI (urinary tract infection): Sepsis 2/2 UTI Aspiration pneumonitis Mrs. Vanegas is a pleasant 84-year-old female who has significant past medical history of chronic respiratory failure with hypoxia and hypercapnia on chronic 4 L of O2, COPD, ulcerative colitis, HTN, hypothyroidism, cor pulmonale who presents to ED secondary to weakness, vomiting and lethargy x1 day. In ED patient remained hemodynamically stable although temp mildly elevated at 37.6. Lab work notable for leukocytosis 14.74k, H&H 12.3 and 39.7, platelet 131, BUN 14, creatinine 0.81, glucose 135, LDH 249, troponin 0.266, CRP 2.96, procalcitonin mildly elevated 0.65. Covid PCR was negative. Pt also tachycardic on admission, c/w sepsis given leukocytosis, elev. procal, altered mental status Chest x-ray for cardiomegaly and chronic interstitial pulmonary opacities similar to prior study. No acute change. In ED she received 2 g IV Rocephin, 500 mL IVF and 1 g IV acetaminophen. The night of admission however pt vomited and had a fever, concern for aspiratio n CXR obtained, no opacities noted Pt treated for aspiration pneumonitis Ceftriaxone was switched to ertapenem overnight, continued while inpt blood cultx - NGTD urine culture -less than 1000 col., this is in the setting of prior Bactrim use though diet as tolerated PT/OT Pt's son CHRISTIE Vanegas contacted at [phone] and updated. He agrees with assessment and treatment plan. He lives in [place]. (2) Elevated troponin: no chest pain or change in ecg, likely chronic trend x 2 but otherwise no intervention warranted at this time (3) Chronic respiratory failure with hypoxia and hypercapnia: 2/2 to COPD/Pulm Fibrosis continue supplemental oxygen (4) COPD (chronic obstructive pulmonary disease): no acute exac continue Trelegy and prn duoneb continue O2 supplementation (5) Essential hypertension: Blood pressure mildly elevated in ED 155/67 likely in setting of not taking a.m. meds along with situational resume metoprolol and lisinopril BP mildly elevated (6) Hypothyroidism: continue levothyroxine (7) Ulcerative colitis: continue Mesalamine (8) Osteoporosis: continue Evista (9) DVT prophylaxis: SQ Heparin Disposition: med tele Follow up: PCP Dr. Gray upon discharge Total Time Total Time Spent Total Time Spent (In Minutes): 40 Total Time Includes: Examination of the Patient, Discharge Planning and Medication Reconciliation Discharge Plan Discharge Items Patient Disposition: Home - Home Health Services Reason For Visit: LETHARGY Discharge Diagnosis: Sepsis, altered mental status, secondary to UTI Aspiration pneumonitis Activity: Per Instructions section Non-emergency contact: Primary Care Provider Call non-emergency contact if: you have any medication questions and your symptoms worsen Follow-up/Referrals: Su Gray [Primary Care Provider] - Diet: Regular Diet Texture: Easy to Chew Addtl Attending Provider Instructions: Follow-up with primary care doctor within 1 week. Recommend to have easy to chew a diet. Always sit upright when you are eating and be careful with swallowing. Continue to use incentive spirometer every 2 hours for next couple of days. Take antibiotics, cefuroxime, and metronidazole, for next 2 days as prescribed. You can also take Mucinex. Start taking your medications this evening 01/26/20. Do not take Bactrim. Pending Studies at Discharge: Yes Studies:: Final results of blood cultures Stand-Alone Forms: My [facility] Adpeps, Smoking Cessation Medications and DC Order Prescriptions: New cefuroxime axetil 500 mg Tablet 500 mg PO BID 2 Days Qty: 4 RF: 0 guaifenesin [Mucinex] 600 mg Tablet Extended Release 12hr 600 mg PO Q12 2 Days Qty: 4 RF: 0 metronidazole [Flagyl] 500 mg tablet 500 mg PO Q8H 2 Days Qty: 6 RF: 0 Continued ipratropium-albuterol 0.5 mg-3 mg(2.5 mg base)/3 mL Solution For Nebulization 3 ml INHALATION QID PRN (Reason: Shortness Of Breath Or Wheezing) RF: 0 trazodone 50 mg tablet 50 mg PO UD RF: 0 lisinopril 10 mg Tablet 10 mg PO QAM RF: 0 metoprolol succinate 25 mg tablet extended release 24 hr 25 mg PO HS RF: 0 Trelegy Ellipta 100-62.5-25 mcg blister with device 1 puff inhalation DAILY RF: 0 raloxifene [Evista] 60 mg Tablet 60 mg PO QPM RF: 0 mesalamine [Apriso] 0.375 gram Capsule,Extended Release 24hr 1.5 g PO QAM RF: 0 levothyroxine 50 mcg Capsule 50 mcg PO QAM RF: 0 loperamide [Imodium A-D] 2 mg Tablet 0 mg PO Q4H PRN (Reason: Constipation) RF: 0 Multivitamin Gummy 0 mg 1 tab PO DAILY RF: 0 montelukast 10 mg Tablet 10 mg PO DAILY RF: 0 ferrous sulfate 325 mg (65 mg iron) Tablet 325 mg PO DAILY RF: 0 prednisone 2.5 mg Tablet 2.5 mg PO DAILY RF: 0 Discontinued sulfamethoxazole-trimethoprim [Bactrim DS] 800-160 mg Tablet 1 tab PO BID RF: 0 Discharge Orders: Discharge Order (Routine); Ordered 01/26/20 Ordered By: Brendon Cartagena Admission Data Admit Date/Time: 01/22/20 14:37 Attending Provider: Brendon Cartagena Admit Provider: Alexis Zhou Primary Care Provider: Su Gray Other Providers: Alexis Zhou
[2020-01-26] MEDS ORDERED: cefUROXime axetil 500 MG TAB PO SCH (13:00)
== END 2020-01-26 14:00 | disposition home health service (06) | DRG 871 ==
LOC: ED 11:58 → SUATTDRO 14:37 → 2W 14:37

== ENCOUNTER 2020-07-26 09:50 | Inpatient (IN) ==
[2020-07-26] MEDS ORDERED: dexAMETHasone**PF** 10 MG/ML VIAL IV ONE (10:00)
[2020-07-26] MEDS ORDERED: ALBUT/IPRATROP 3MG/0.5MG NEB 3 ML VIAL NEB ONE (10:01)
--- NOTE | 2020-07-26 10:13 | Emergency Department Note ---
History of Present Illness General Chief complaint: Shortness of Breath/Dyspnea Time Seen by Provider: 07/26/20 09:58 Source: patient, family (Son who I talked to on the phone) and EMS Mode of arrival: EMS Limitations: no limitations History of Present Illness This patient has a history of COPD as well as a recent diagnosed with Covid this past Monday, comes in after having increasing shortness of breath. She is at [facility] and she has 24 hours private duty care there. She is a DO NOT RESUSCITATE and in the past had had wishes not to even come to the hospital. She did request because she was short of breath. They gave her duo nebs which helped she does appear short of breath still on supplemental oxygen and was in the 70s without oxygen initially. She denies any chest pain. With supplemental oxygen she is in the high 80s low 90s. She does confirm to me that she is a DO NOT RESUSCITATE. Home Medications Medication Instructions Recorded Confirmed Type levothyroxine 50 mcg PO DAILYBB 07/03/18 07/26/20 History mesalamine [Apriso] 1.5 g PO QAM 07/03/18 07/26/20 History raloxifene [Evista] 60 mg PO QPM 07/03/18 07/26/20 History ipratropium-albuterol 3 ml INHALATION QID PRN 08/09/18 07/26/20 History trazodone 50 mg PO PM 08/09/18 07/26/20 History ferrous sulfate 325 mg PO QDL 01/22/20 07/26/20 History prednisone 2.5 mg PO QAM 01/22/20 07/26/20 History acetaminophen [Tylenol Extra 500 mg PO Q6H PRN 07/26/20 07/26/20 History Strength] ascorbic acid (vitamin C) [Vitamin 1 g PO QDL 07/26/20 07/26/20 History C] qqcynfdwkoz-rgovkfnwj-tquzoids 1 inh INHALATION QAM 07/26/20 07/26/20 History [Trelegy Ellipta] melatonin 1 mg PO HS 07/26/20 07/26/20 History methylprednisolone 4 mg PO QID 07/26/20 07/26/20 History tramadol 50 mg PO Q6H PRN 07/26/20 07/26/20 History Allergies Allergy/AdvReac Type Severity Reaction Status Date / Time Penicillins Allergy Unknown Unknown Verified 07/26/20 11:39 sulfamethoxazole AdvReac Mild LETHARGIC Unverified 07/26/20 10:26 [From Bactrim] trimethoprim [From Bactrim] AdvReac Mild LETHARGIC Unverified 07/26/20 10:26 Past Med/Surg History Medical History (Updated 07/26/20 @ 14:49 by Jin Yanez MD) Adjustment disorder with mixed anxiety and depressed mood COPD (chronic obstructive pulmonary disease) Essential hypertension Hypercholesteremia Hypothyroidism Iron deficiency anemia Osteoporosis Requires supplemental oxygen Ulcerative colitis Surgical History History of D&C History of tonsillectomy Family History Other Family history non-contributory Social History Smoking Status: Former smoker Tobacco Type: Cigarettes Cigarettes Per Day: pt unsure; Second Hand Exposure: No; Hx Alcohol Use: No Hx Substance Use: No Preferred Language: Sammarinese Communication Ability: Effective Geological Specialist Required: No Beliefs That Will Affect Care: None marital status: / Current Living Situation: Skilled Nursing Current Living Situation Comment: has 07/11 caregivers How many Children do You have: 1 Feels Safe at Home: Yes Assistive Devices: Oxygen - Continuous Review of Systems A total of 10 systems reviewed and were otherwise negative Physical Exam Vital Signs Vital Signs - 24 hr 07/26/20 09:35 07/26/20 10:00 07/26/20 10:04 Temperature 37.4 C Temperature Source Oral Pulse Rate 122 H 123 H Pulse Rate [Right Finger] Pulse Rate from SpO2 Sensor 122 H Respiratory Rate 39 H 44 H Respiratory Effort / Characteristics Spontaneous Respiratory Depth Shallow Respiratory Pattern Rapid/Shallow Tachypnea Blood Pressure 155/86 H 155/86 H Blood Pressure Mean 109 109 Blood Pressure Position Lying Pulse Oximetry 80 L 92 93 Oxygen Delivery Method Room Air Oxymask Oxymask Oxygen Flow Rate 11 13 Sepsis Recent Fever Within 48 Hours No Sepsis New/Unexplained Change in Mental Status N/A Sepsis Action Taken by Nursing Physician Notified 07/26/20 10:12 07/26/20 10:20 07/26/20 10:30 Temperature Temperature Source Pulse Rate 122 H 121 H 128 H Pulse Rate [Right Finger] Pulse Rate from SpO2 Sensor 122 H 122 H 117 H Respiratory Rate 38 H 40 H 44 H Respiratory Effort / Characteristics Respiratory Depth Respiratory Pattern Blood Pressure 148/67 H Blood Pressure Mean 94 Blood Pressure Position Pulse Oximetry 92 93 89 L Oxygen Delivery Method Oxymask Oxymask Oxymask Oxygen Flow Rate 11 11 11 Sepsis Recent Fever Within 48 Hours Sepsis New/Unexplained Change in Mental Status Sepsis Action Taken by Nursing 07/26/20 10:31 07/26/20 10:50 07/26/20 10:59 Temperature Temperature Source Pulse Rate 123 H 121 H Pulse Rate [Right Finger] 116 H Pulse Rate from SpO2 Sensor 121 H 120 H Respiratory Rate 47 H 30 H 28 H Respiratory Effort / Characteristics Spontaneous Short of Breath Respiratory Depth Respiratory Pattern Blood Pressure Blood Pressure Mean Blood Pressure Position Pulse Oximetry 91 89 L 91 Oxygen Delivery Method Oxymask Oxymask Oxygen Flow Rate 11 11 Sepsis Recent Fever Within 48 Hours Sepsis New/Unexplained Change in Mental Status Sepsis Action Taken by Nursing 07/26/20 11:00 07/26/20 11:30 07/26/20 12:00 Temperature Temperature Source Pulse Rate 116 H 140 H 182 H Pulse Rate [Right Finger] Pulse Rate from SpO2 Sensor 116 H Respiratory Rate 24 33 H 36 H Respiratory Effort / Characteristics Respiratory Depth Respiratory Pattern Blood Pressure 130/73 184/107 H 187/109 H Blood Pressure Mean 92 132 135 Blood Pressure Position Pulse Oximetry 90 89 L 89 L Oxygen Delivery Method Oxygen Flow Rate Sepsis Recent Fever Within 48 Hours Sepsis New/Unexplained Change in Mental Status Sepsis Action Taken by Nursing General: Cachectic older female who appears tachypneic but speaking full sentences and mentating normally in no acute distress. Normal speech HEENT: Normal cephalic atraumatic. Pupils are equal round and reactive to light. Extraocular movements are intact. Oropharynx is pink with moist mucous membranes. No swelling of the mouth lips or tongue. Neck: Supple with a midline trachea. No meningeal signs or stiffness, no JVD or bruits. No Stridor. Chest: She has gurgling breath sounds with crackles to auscultation bilaterally. Mild to moderate increased work of breathing. Heart: Regular rate and rhythm without murmurs or gallops. Abdomen: Soft nontender, nondistended without rebound guarding or rigidity. Extremities: No cyanosis clubbing or edema. No calf tenderness or assymetry Spine/Back. Non tender to palpation. No CVA tenderness Skin: Good turgor without rashes. Neurologic exam: Cranial nerves two through 12 are intact. Motor and sensation are intact and symmetrical throughout. Course Administered Medications Discontinued Medications Albuterol (Albut/Ipratrop 3mg/0.5mg Neb 3 Ml Vial) 12 ml NEB ONE ONE Stop: 07/26/20 10:02 Last Admin: 07/26/20 10:58 Dose: 12 ml Documented by: [id number] Dexamethasone Sodium Phosphate (DexamethasonePf 10 Mg/Ml Vial) 6 mg IV NOW ONE Stop: 07/26/20 10:01 Last Admin: 07/26/20 10:18 Dose: 6 mg Documented by: [id number] Cefepime HCl 1,000 mg/ Syringe 11.3 mls @ 5.5 mls/min IV NOW STA; Protocol Stop: 07/26/20 11:38 Last Admin: 07/26/20 11:55 Dose: 5.5 mls/min Documented by: [id number] Azithromycin 500 mg/ Dextrose 255 mls @ 127.5 mls/hr IV NOW STA Stop: 07/26/20 13:36 Last Infusion: 07/26/20 14:20 Dose: 0 mls/hr Documented by: [id number] Admin: 07/26/20 11:55 Dose: 127.5 mls/hr Documented by: [id number] Sodium Chloride (Nss 1000ml) 500 mls @ 999 mls/hr IV .Q31M ONE Stop: 07/26/20 12:18 Last Infusion: 07/26/20 12:25 Dose: 0 mls/hr Documented by: [id number] Admin: 07/26/20 11:55 Dose: 999 mls/hr Documented by: [id number] Ioversol (Optiray 320 125ml) 119 ml IV ONCE ONE Stop: 07/26/20 13:56 Last Admin: 07/26/20 13:56 Dose: 119 ml Documented by: [id number] Metoprolol Tartrate (Metoprolol Tartrate 1 Mg/Ml Vial) 5 mg IV NOW STA Stop: 07/26/20 12:32 Last Admin: 07/26/20 13:30 Dose: Not Given Documented by: [id number] Metoprolol Tartrate (Metoprolol Tartrate 1 Mg/Ml Vial) Confirm Administered Dose 5 mg IV .STK-MED ONE Stop: 07/26/20 12:49 Last Admin: 07/26/20 13:29 Dose: Not Given Documented by: [id number] Nitroglycerin (Nitroglycerin 2% Ointment 30gm Tube) 0.5 inch EXT NOW ONE Stop: 07/26/20 12:32 Last Admin: 07/26/20 13:30 Dose: Not Given Documented by: [id number] Nitroglycerin (Nitroglycerin 2% Ointment 30gm Tube) Confirm Administered Dose 18 inch .ROUTE .STK-MED ONE Stop: 07/26/20 12:49 Last Admin: 07/26/20 13:30 Dose: Not Given Documented by: [id number] Critical Care Time Critical Care Time: Yes Total Critical Care Time: 45 I have personally spent greater than 45 minutes of critical care time in the d irect management of this patient. This includes bedside care, interpretation of diagnostic studies, and testing, discussion with consultants, patient, and family members, and other required patient management activities. This 45 minutes is in excess of all separately billable procedures. Medical Decision Making Differential Diagnosis Covid, pneumonia, sepsis, COPD exacerbation, electrolyte or metabolic abnormality, cardiac disease Medical Records Attestation: I reviewed the patient's medical records. Home Medications Current Medication List: was personally reviewed by me Laboratory Data Attestation: I reviewed the patient's lab results. Result diagrams: 07/26/20 10:23 07/26/20 10:23 Lab Results 07/26/20 07/26/20 07/26/20 Range/Units 10:23 10:23 10:23 WBC 20.96 H (4.8-10.8) K/uL RBC 4.37 (4.2-5.4) M/uL Hgb 13.9 (12.0-16.0) g/dL Hct 42.2 (37-47) % MCV 96.6 (80-100) fL MCH 31.8 (25-34) pg MCHC 32.9 (32-36) g/dL RDW Std Deviation 47.3 H (36.4-46.3) fL RDW Coeff of Robin 13.4 (11.5-14.5) % Plt Count 229 (130-400) K/uL MPV 11.8 H (7.4-10.4) fL Immature Gran % (Auto) 0.3 % Neut % (Auto) 93.8 % Lymph % (Auto) 3.0 % [place] % (Auto) 2.8 % Eos % (Auto) 0.0 % Baso % (Auto) 0.1 % Neut # (Auto) 19.65 H (1.4-6.5) K/uL Lymph # (Auto) 0.63 L (1.2-3.4) K/uL [place] # (Auto) 0.59 (0.11-0.59) K/uL Eos # (Auto) 0.00 (0-0.5) K/uL Baso # (Auto) 0.02 (0-0.2) K/uL Immature Gran # (Auto) 0.07 H (0.00-0.02) K/uL Plt Count ,Citrate Sodium 137 (136-145) mmol/L Potassium 2.9 L (3.5-5.1) mmol/L Chloride 99 (98-107) mmol/L Carbon Dioxide 30 (21-32) mmol/L Anion Gap 8.0 (3-11) BUN 22 H (7-18) mg/dl Creatinine 0.90 (0.6-1.2) mg/dl Est Cr Clr Drug Dosing 30.8 ml/min Est GFR ( Amer) 66.6 Est GFR (Non-Af Amer) 57.5 BUN/Creatinine Ratio 25.0 H (10-20) Glucose 243 H (70-99) mg/dl Calcium 8.6 (8.5-10.1) mg/dl Total Bilirubin 0.3 (0.2-1) mg/dl AST 32 (15-37) U/L ALT 12 (12-78) U/L Alkaline Phosphatase 43 L (45-117) U/L Troponin I 0.726 H* (0-0.045) ng/ml Total Protein 7.5 (6.4-8.2) gm/dl Albumin 2.8 L (3.4-5.0) gm/dl Globulin 4.7 H (2.5-4.0) gm/dl Albumin/Globulin Ratio 0.6 L (0.9-2) Lipase 78 (73-393) U/L COVID-19 Eval Order CovFluRsv at [facility] SARS-CoV-2 (PCR) (Negative) Influenza Type A (PCR) (Neg) Influenza Type B (PCR) (Neg) RSV (RT-PCR) (Neg) 07/26/20 07/26/20 Range/Units 10:23 10:23 WBC (4.8-10.8) K/uL RBC (4.2-5.4) M/uL Hgb (12.0-16.0) g/dL Hct (37-47) % MCV (80-100) fL MCH (25-34) pg MCHC (32-36) g/dL RDW Std Deviation (36.4-46.3) fL RDW Coeff of Robin (11.5-14.5) % Plt Count (130-400) K/uL MPV (7.4-10.4) fL Immature Gran % (Auto) % Neut % (Auto) % Lymph % (Auto) % [place] % (Auto) % Eos % (Auto) % Baso % (Auto) % Neut # (Auto) (1.4-6.5) K/uL Lymph # (Auto) (1.2-3.4) K/uL [place] # (Auto) (0.11-0.59) K/uL Eos # (Auto) (0-0.5) K/uL Baso # (Auto) (0-0.2) K/uL Immature Gran # (Auto) (0.00-0.02) K/uL Plt Count ,Citrate Cancelled Sodium (136-145) mmol/L Potassium (3.5-5.1) mmol/L Chloride (98-107) mmol/L Carbon Dioxide (21-32) mmol/L Anion Gap (3-11) BUN (7-18) mg/dl Creatinine (0.6-1.2) mg/dl Est Cr Clr Drug Dosing ml/min Est GFR ( Amer) Est GFR (Non-Af Amer) BUN/Creatinine Ratio (10-20) Glucose (70-99) mg/dl Calcium (8.5-10.1) mg/dl Total Bilirubin (0.2-1) mg/dl AST (15-37) U/L ALT (12-78) U/L Alkaline Phosphatase (45-117) U/L Troponin I (0-0.045) ng/ml Total Protein (6.4-8.2) gm/dl Albumin (3.4-5.0) gm/dl Globulin (2.5-4.0) gm/dl Albumin/Globulin Ratio (0.9-2) Lipase (73-393) U/L COVID-19 Eval Order SARS-CoV-2 (PCR) POSITIVE A* (Negative) Influenza Type A (PCR) Negative (Neg) Influenza Type B (PCR) Negative (Neg) RSV (RT-PCR) Negative (Neg) Imaging Data Attestation: I personally reviewed and interpreted this imaging study as follows: My Impression: Chest x-raythere is some opacity in the right and also on the left midlung. No CHF seen. Radiologist's Impression: Chest X-Ray 07/26/20 10:00 XR chest 1V portable CLINICAL HISTORY: Chest Pain COMPARISON STUDY: Chest CT August 09, 2018. Chest radiograph January 23, 2020. FINDINGS: Patient is rotated. There is no pneumothorax or pleural effusion. Severe emphysema is present. Mild right lower lung opacity is present. There is possible mild left midlung opacity. Cardiac size is normal. Mediastinal contours are stable. IMPRESSION: 1. Mild right lower lung opacity and possible minimal left midlung opacity. The findings could reflect an infectious process. Radiographic follow-up is recommended. 2. Emphysema. ACT 112: Negative or not required by law. Electronically signed by: Jean-Claude Chavez M.D. 07/26/2020 10:55 AM ECG Data Attestation: I personally reviewed and interpreted this ECG as follows: Indication: + chest pain and + SOB/dyspnea Rate (beats per minute): 127 Rhythm: + sinus tachycardia ECG Intervals/blocks: + Right Bundle branch block and + Normal AL ECG [place]: + Normal ECG ST segments: + Nonspecific ST abnormalities ECG Findings: + PACs Comparison ECG Date: from (01/22/20) Change: the following changes noted (Rate has increased, PACs are now present) MDM Narrative This patient comes in as described above. She E has a history of Covid and COPD she appears fairly tachypneic and hypoxemic. She was placed on a cardiac rn in room C10, given her history of reactive airway disease I did order DuoNeb neb over an hour as well as Decadron 6 mg IV given her history of Covid as well she [facility]. She is followed by Dr. Kari Davidson. I talked to the son on the phone as well as the patient and they both confirmed that she is a DO NOT RESUSCITATE would not want to be hooked up to machines intubated or have CPR. Chest x-ray does suggest infiltrates which likely is from Covid however with an elevated white count I did cover her with IV antibiotics and gave her IV cefepime and IV azithromycin. She started feeling much better after getting the nebs however this made her heart rate get very tachycardic and she also had some hypertension this however resolved with an IV fluid bolus as well as the finish of the meds. Her vital signs stabilized her heart rate came down and normalized. Her oxygen demand also got better. She seems to be doing a lot better. I do think she needs to be admitted/observed. I did talk to her son at length again he agrees. I have talked to the [facility] hospitalist as well. Continuous cardiac monitoring: Due to the patient's shortness of breath she was placed on a cardiac rn and order was placed in the EMR. Impression & Plan COVID-19, COPD (chronic obstructive pulmonary disease), SOB (shortness of breath), Hypoxemia, DNR (do not resuscitate), DNR (do not resuscitate) discussion, Elevated troponin, Sepsis Discharge Plan Visit Data Chief Complaint: Shortness of Breath/Dyspnea ED Provider: Jin Yanez Discharge Problem: COVID-19, COPD (chronic obstructive pulmonary disease), SOB (shortness of breath), Hypoxemia, DNR (do not resuscitate), DNR (do not resuscitate) discussion, Elevated troponin, Sepsis Discharge Instructions Interventions: ED Discharge Assessment Last Done: 07/26/20 13:55 Discharge Problem: COPD (chronic obstructive pulmonary disease) Qualifiers: COPD type: unspecified COPD Qualified Code(s): J44.9 - Chronic obstructive pulmonary disease, unspecified Sepsis Qualifiers: Sepsis type: sepsis due to unspecified organism Sepsis acute organ dysfunction status: unspecified Qualified Code(s): A41.9 - Sepsis, unspecified organism
--- NOTE | 2020-07-26 10:57 | XRay Report ---
XR chest 1V portable CLINICAL HISTORY: Chest Pain COMPARISON STUDY: Chest CT August 09, 2018. Chest radiograph January 23, 2020. FINDINGS: Patient is rotated. There is no pneumothorax or pleural effusion. Severe emphysema is prese nt. Mild right lower lung opacity is present. There is possible mild left midlung opacity. Cardiac si ze is normal. Mediastinal contours are stable. IMPRESSION: 1. Mild right lower lung opacity and possible minimal left midlung opacity. The findings could reflec t an infectious process. Radiographic follow-up is recommended. 2. Emphysema. ACT 112: Negative or not required by law. Electronically signed by: Jean-Claude Chavez M.D. 07/26/2020 10:55 AM
[2020-07-26 11:12] LABS: Basophils # (auto) 0.02 K/uL (0-0.2); Basophils % (auto) 0.1 %; Hematocrit (blood only) 42.2 % (37-47); Hemoglobin 13.9 g/dL (12.0-16.0); Immature Granulocytes # (auto) 0.07 K/uL (0.00-0.02); Immature Granulocytes % (auto) 0.3 %; Lymphocytes # (auto) 0.63 K/uL (1.2-3.4); Mean Corpuscular Hemoglobin 31.8 pg (25-34); Mean Corpuscular Hgb Conc 32.9 g/dL (32-36); Mean Corpuscular Volume 96.6 fL (80-100); Mean Platelet Volume 11.8 fL (7.4-10.4); Monocytes # (auto) 0.59 K/uL (0.11-0.59); Monocytes % (auto) 2.8 %; Neutrophils # (auto) 19.65 K/uL (1.4-6.5); Neutrophils % (auto) 93.8 %; Platelet Count 229 K/uL (130-400); RDW Coefficient of Variation 13.4 % (11.5-14.5); RDW Standard Deviation 47.3 fL (36.4-46.3); Red Blood Count 4.37 M/uL (4.2-5.4); White Blood Count 20.96 K/uL (4.8-10.8)
[2020-07-26 11:29] LABS: Albumin Level 2.8 gm/dl (3.4-5.0); Calcium 8.6 mg/dl (8.5-10.1); Creatinine Clr Calc Pharmacy 30.8 ml/min; Est GFR (African American) 66.6; Est GFR (Non-African American) 57.5; Potassium 2.9 mmol/L (3.5-5.1)
[2020-07-26] MEDS ORDERED: CEFEPIME 1,000 MG in SYRINGE 0 ML IV STA (11:36)
[2020-07-26] MEDS ORDERED: AZITHROMYCIN 500 MG in DEXTROSE 5% 250 ML IV STA (11:37)
[2020-07-26 11:41] LABS: Albumin Globulin Ratio 0.6 (0.9-2); Bilirubin,Total 0.3 mg/dl (0.2-1); Globulin 4.7 gm/dl (2.5-4.0); Total Protein 7.5 gm/dl (6.4-8.2); Troponin I 0.726 ng/ml (0-0.045)
[2020-07-26] MEDS ORDERED: SODIUM CHLORIDE 0.9% 1000ML 500 ML IV ONE (11:48)
[2020-07-26 11:54] LABS: Influenza A virus by PCR Negative (Neg); Influenza B virus by PCR Negative (Neg); RSV by PCR Negative (Neg)
[2020-07-26 11:57] LABS: SARS CoV2 RNA(COVID-19) InHosp POSITIVE (Negative)
--- NOTE | 2020-07-26 12:17 | History & Physical Report ---
Date of Service July 26, 2020 Assessment & Plan (1) COVID-19 virus infection: Diagnosed COVID-19 last Monday Discussed with the son and the patient herself She will be given remdesivir and dexamethasone No plasma CRP was very high and D-dimer elevated to Oxygen as needed to maintain saturation (2) Pneumonia: Possible right lower lobe infiltration Increasing white count and increase in procalcitonin Started on intravenous cefepime and azithromycin (3) Acute on chronic respiratory failure with hypoxia: (4) COPD (chronic obstructive pulmonary disease): Patient with history of COPD and chronic hypoxic respiratory failure on home O2 presented to the ED today with worsening SOB and O2 desaturation at home. She also was COVID-19 + this past week outpatient. She was noted to have O2 sats in the 70s upon presentation. Started on O2 via OxyMask in the ED and is saturating in the low 90s on 10-11 L/min. Admit to Med/Surg with tele. Patient is DNR/DNI. This was confirmed with patient's son. No heroic measures. Continue supplemental O2 to maintain SaO2 > 90%. Patient was given IV Decadron 6 mg x 1 dose in the ED. Continue Decadron daily and start Remdesivir. Patient given IV Cefepime and azithromycin in the ED as well with WBC ct 20k with neutrophil predominance Continue abx therapy with Azithromycin & CTX tomorrow AM for concern of superimposed bacterial infection Continue Duoneb Q4h Check Procalcitonin, DDimer, CRP Recheck CBCD, BMP in AM Continue cardiac monitoring. Aspiration precautions, fall precautions Continue isolation precautions for COVID (5) Elevated troponin: Will trend troponin Doubt any ACS (6) Tachycardia: (7) Essential hypertension: BP elevated in the ED up to 187/109. Tachycardia with HR up to 180. Possibly worsened secondary to continuous Duoneb IV Lopressor 5 mg & Nitro paste x 1 dose NOW Continue pending repeat BP & HR Continue to monitor. Trend troponin (8) Hypokalemia: Replace potassium. Recheck BMP AM (9) Hyperglycemia: Glucose elevated to > 200 on admission. No history of DM, but will add sliding scale insulin Possibly elevated secondary to infection (10) DVT prophylaxis: SQ Heparin Q12h History of Present Illness Chief Complaint: COVID, SOB Primary Care Provider: Su Gray Patient is an 85 yo female with history of COPD who presented to the ED today for concern of increasing SOB. The patient was diagnosed with COVID-19 infection on Monday last week, and since that time has felt progressively SOB. Per the ED, the patient lives at [facility] and has private duty 24hr care. She typically does not come to the ER because she is DNR/DNI. She is on home O2, but her O2 saturation was still dropping into the 70s at home on oxygen. This prompted her visit to the ER. Since presentation, she was noted to have + COVID today again. CXR showed mild RLL and possible minimal left mid- lung opacity favoring infectious process. Labs upon presentation noted multiple abnormalities: WBC 20k with neutrophil predominance Hypokalemia with K+ 2.9 Glucose 243 Renal function stable with Cr 0.9 and GFR 57% LFTs within norm Troponin elevated to 0.726 + COVID test as noted above Allergies Allergy/AdvReac Type Severity Reaction Status Date / Time Penicillins Allergy Unknown Unknown Verified 07/26/20 11:39 sulfamethoxazole AdvReac Mild LETHARGIC Unverified 07/26/20 10:26 [From Bactrim] trimethoprim [From Bactrim] AdvReac Mild LETHARGIC Unverified 07/26/20 10:26 Home Medications Medication Instructions Recorded Confirmed Type levothyroxine 50 mcg PO DAILYBB 07/03/18 07/26/20 History mesalamine [Apriso] 1.5 g PO QAM 07/03/18 07/26/20 History raloxifene [Evista] 60 mg PO QPM 07/03/18 07/26/20 History ipratropium-albuterol 3 ml INHALATION QID PRN 08/09/18 07/26/20 History trazodone 50 mg PO PM 08/09/18 07/26/20 History ferrous sulfate 325 mg PO QDL 01/22/20 07/26/20 History prednisone 2.5 mg PO QAM 01/22/20 07/26/20 History acetaminophen [Tylenol Extra 500 mg PO Q6H PRN 07/26/20 07/26/20 History Strength] ascorbic acid (vitamin C) [Vitamin 1 g PO QDL 07/26/20 07/26/20 History C] nepxyqaoelc-efankxxlq-culfpyaj 1 inh INHALATION QAM 07/26/20 07/26/20 History [Trelegy Ellipta] melatonin 1 mg PO HS 07/26/20 07/26/20 History methylprednisolone 4 mg PO QID 07/26/20 07/26/20 History tramadol 50 mg PO Q6H PRN 07/26/20 07/26/20 History Past Med/Surg History Medical History (Updated 07/26/20 @ 14:49 by Jin Yanez MD) Adjustment disorder with mixed anxiety and depressed mood COPD (chronic obstructive pulmonary disease) Essential hypertension Hypercholesteremia Hypothyroidism Iron deficiency anemia Osteoporosis Requires supplemental oxygen Ulcerative colitis Surgical History History of D&C History of tonsillectomy Family History Other Family history non-contributory Social History Smoking Status: Former smoker Tobacco Type: Cigarettes Cigarettes Per Day: pt unsure; Second Hand Exposure: No; Hx Alcohol Use: No Hx Substance Use: No Preferred Language: Angolan Communication Ability: Effective Physician Support Coordinator Required: No Beliefs That Will Affect Care: None marital status: / Current Living Situation: Long-Term Current Living Situation Comment: has 07/11 caregivers How many Children do You have: 1 Feels Safe at Home: Yes Assistive Devices: Oxygen - Continuous Review of Systems Review of Systems: See supervising physician addendum for ROS/Exam findings Physical Exam Physical Exam: Lying in bed with her moderate shortness of breath at rest Constitutional: + acute distress (Secondary to shortness of breath), + ill appearing and + thin Eyes: PERRL, conjunctivae normal, anicteric sclerae ENMT: external ear and nose normal, oropharynx normal Neck: trachea midline, no thyromegaly Respiratory: + respiratory distress Auscultation: + diminished lung sounds, + crackles (Bibasilar crackles, more on the right than the left) and + wheezes (Minimal wheezing) Cardiovascular: Rate/Rhythm: regular rate, regular rhythm and + tachycardic Heart Sounds: no murmur Extremities: no edema Gastrointestinal (Abdomen): Inspection/Auscultation: normal bowel sounds; abdomen not distended Percussion/Palpation: abdomen soft; abdomen nontender Musculoskeletal: No acute arthritis in any joint Skin: Has generalized bruising Neurologic: Alert, awake and oriented x3. Generally weak but no focal neuro deficit Psychiatric: A+Ox3, euthymic affect Lymphatic: no cervical or axillary lymphadenopathy Results & Data Results & Data ([facility]) Vital Signs (Past 12 Hours) Vital Signs Temp Pulse Pulse Resp BP Pulse Ox 07/26/20 12:00 182 H 36 H 187/109 H 89 L 07/26/20 11:30 140 H 33 H 184/107 H 89 L 07/26/20 11:00 116 H 24 130/73 90 07/26/20 10:59 116 H 28 H 91 07/26/20 10:50 121 H 30 H 89 L 07/26/20 10:31 123 H 47 H 91 07/26/20 10:30 128 H 44 H 148/67 H 89 L 07/26/20 10:20 121 H 40 H 93 07/26/20 10:12 122 H 38 H 92 07/26/20 10:04 37.4 C 123 H 44 H 155/86 H 93 07/26/20 10:00 122 H 39 H 155/86 H 92 07/26/20 09:35 80 L Laboratory Results Laboratory Results - last 24 hr 07/26/20 07/26/20 07/26/20 10:23 10:23 10:23 WBC 20.96 H RBC 4.37 Hgb 13.9 Hct 42.2 MCV 96.6 MCH 31.8 MCHC 32.9 RDW Std Deviation 47.3 H RDW Coeff of Robin 13.4 Plt Count 229 MPV 11.8 H Immature Gran % (Auto) 0.3 Neut % (Auto) 93.8 Lymph % (Auto) 3.0 Hemphill % (Auto) 2.8 Eos % (Auto) 0.0 Baso % (Auto) 0.1 Neut # (Auto) 19.65 H Lymph # (Auto) 0.63 L Hemphill # (Auto) 0.59 Eos # (Auto) 0.00 Baso # (Auto) 0.02 Immature Gran # (Auto) 0.07 H Plt Count ,Citrate Sodium 137 Potassium 2.9 L Chloride 99 Carbon Dioxide 30 Anion Gap 8.0 BUN 22 H Creatinine 0.90 Est Cr Clr Drug Dosing 30.8 Est GFR ( Amer) 66.6 Est GFR (Non-Af Amer) 57.5 BUN/Creatinine Ratio 25.0 H Glucose 243 H Lactate Calcium 8.6 Total Bilirubin 0.3 AST 32 ALT 12 Alkaline Phosphatase 43 L Troponin I 0.726 H* Total Protein 7.5 Albumin 2.8 L Globulin 4.7 H Albumin/Globulin Ratio 0.6 L Lipase 78 COVID-19 Eval Order CovFluRsv at [facility] SARS-CoV-2 (PCR) Influenza Type A (PCR) Influenza Type B (PCR) RSV (RT-PCR) 07/26/20 07/26/20 07/26/20 10:23 10:23 11:55 WBC RBC Hgb Hct MCV MCH MCHC RDW Std Deviation RDW Coeff of Robin Plt Count MPV Immature Gran % (Auto) Neut % (Auto) Lymph % (Auto) Hemphill % (Auto) Eos % (Auto) Baso % (Auto) Neut # (Auto) Lymph # (Auto) Hemphill # (Auto) Eos # (Auto) Baso # (Auto) Immature Gran # (Auto) Plt Count ,Citrate Cancelled Sodium Potassium Chloride Carbon Dioxide Anion Gap BUN Creatinine Est Cr Clr Drug Dosing Est GFR ( Amer) Est GFR (Non-Af Amer) BUN/Creatinine Ratio Glucose Lactate Pending Calcium Total Bilirubin AST ALT Alkaline Phosphatase Troponin I Total Protein Albumin Globulin Albumin/Globulin Ratio Lipase COVID-19 Eval Order SARS-CoV-2 (PCR) POSITIVE A* Influenza Type A (PCR) Negative Influenza Type B (PCR) Negative RSV (RT-PCR) Negative Diagnostic Findings CXR: IMPRESSION: 1. Mild right lower lung opacity and possible minimal left midlung opacity. The findings could reflect an infectious process. Radiographic follow-up is recommended. 2. Emphysema. Code Status & VTE Plan VTE Prophylaxis Plan VTE Prophylaxis will be ordered: Yes Supervising Physician Co-Signing Physician Notes Attending addendum: The patient was seen and examined in the emergency room She was admitted with increasing shortness of breath at least since Monday last when she was diagnosed with COVID-19 She remains very shortness of breath on admission Her physical exam is documented in history and physical section Her admission labs and imaging studies reviewed Assessment and plan are adjusted accordingly CTA did not show any pulmonary embolism Discussed with the son in detail about her condition and management plan Agree with assessment and plan as outlined above by MARA Bliss DR
[2020-07-26] MEDS ORDERED: NITROGLYCERIN 2% OINTMENT 30GM TUBE EXT ONE (12:31)
[2020-07-26] MEDS ORDERED: METOPROLOL TARTRATE 1 MG/ML VIAL IV STA (12:31)
[2020-07-26] MEDS ORDERED: METOPROLOL TARTRATE 1 MG/ML VIAL IV ONE (12:48)
[2020-07-26] MEDS ORDERED: NITROGLYCERIN 2% OINTMENT 30GM TUBE ONE (12:48)
[2020-07-26 13:03] LABS: D Dimer 1450 ug/L FEU (0-500)
[2020-07-26] MEDS ORDERED: OPTIRAY 320 125ml IV ONE (13:55)
[2020-07-26] MEDS ORDERED: GLUCOSE 40% GEL 15 GM TUBE PO PRN (14:17)
[2020-07-26] MEDS ORDERED: ACETAMINOPHEN 325 MG TAB PO PRN (14:17)
[2020-07-26] MEDS ORDERED: CARBOHYDRATES FOR HYPOGLYCEMIA PO PRN (14:17)
[2020-07-26] MEDS ORDERED: GLUCOSE 10 TABS/TUBE PO PRN (14:17)
[2020-07-26] MEDS ORDERED: GLUCAGON FOR INJ 1 MG VIAL SQ PRN (14:17)
[2020-07-26] MEDS ORDERED: DEXTROSE 50% 50 ML SYRINGE IV PRN (14:17)
--- NOTE | 2020-07-26 14:33 | CT Scan Report ---
CT ANGIOGRAPHY OF THE CHEST, PULMONARY EMBOLUS PROTOCOL CLINICAL HISTORY: Chest pain. Covid. COMPARISON STUDY: Chest CT August 09, 2018. Chest radiograph performed earlier today. TECHNIQUE: Following IV administration of 119 mL of Optiray-320, helical axial images of the chest we re obtained utilizing the pulmonary embolus protocol. Maximal intensity projections and sagittal and coronal reformats were viewed on an independent 3D workstation. IV contrast was administered withou t complication. Automated exposure control was utilized for the study. A dose lowering technique wa s utilized adhering to the principles of ALARA. CT DOSE: 229.40 mGycm FINDINGS: No central pulmonary emboli are identified. Remainder of pulmonary arteries are suboptimal ly assessed due to motion artifact. Size of the heart is normal. There is no pericardial effusion. Ou tpouching arising from the undersurface of the aortic arch is unchanged, measuring 3.1 cm. This favor s a ductus diverticulum. There is no thoracic aortic dissection. There is moderate plaque within the thoracic aorta. No pneumothorax or pleural effusion is noted. Lungs are suboptimally assessed due to respiratory motion. There are severe emphysema. There are subpleural right middle lobe and bilateral lower lobe opacities. Bronchial wall thickening and mucus plugging is noted within the bilateral lowe r lobes and right middle lobe. Prominent right paratracheal lymph node is unchanged. Thyroid goiter i s again noted. IMPRESSION: 1. No central pulmonary emboli. Remainder of pulmonary arteries suboptimally assessed due to respirat ory motion. 2. Severe emphysema. 3. Subpleural bilateral lower lobe and right middle lobe opacities. The findings may reflect an infec tious process or atelectasis. ACT 112: Negative or not required by law. Electronically signed by: Jean-Claude Chavez M.D. 07/26/2020 2:32 PM
[2020-07-26] MEDS: SODIUM CHLORIDE 0.9% 1000ML 1,000 ML IV SCH (14:56)
[2020-07-26] MEDS ORDERED: REMDESIVIR 200 MG in SODIUM CHLORIDE 0.9% 210 ML IV ONE (15:00)
[2020-07-26] MEDS: POTASSIUM CHLORIDE / WTR 10 MEQ/100 ML PLCT IV SCH ×4 (16:22→19:34)
[2020-07-26] MEDS: ALBUT/IPRATROP 3MG/0.5MG NEB 3 ML VIAL NEB SCH ×3 (16:33→22:36)
[2020-07-26] MEDS: INSULIN ASPART 100 UNITS/ML 3 ML PEN SC SCH ×2 (17:42→21:09)
[2020-07-26] MEDS: SODIUM CHLORIDE 0.9% 10ML FLUSH IV SCH (18:17)
[2020-07-26] MEDS: HEPARIN SOD 5,000 UNIT/0.5 ML VIAL SQ SCH (20:56)
[2020-07-26] MEDS: traZODone HCL 50 MG TAB PO SCH (20:57)
[2020-07-26] MEDS: MELATONIN 3 MG TAB PO SCH (20:57)
[2020-07-26] MEDS ORDERED: RALOXIFENE HCL 60 MG TAB PO SCH (21:00)
[2020-07-27] MEDS: ALBUT/IPRATROP 3MG/0.5MG NEB 3 ML VIAL NEB SCH ×2 (03:26→09:09)
[2020-07-27] MEDS: SODIUM CHLORIDE 0.9% 1000ML 1,000 ML IV SCH (03:28)
[2020-07-27] MEDS: dexAMETHasone 6 MG in SYRINGE 0 ML IV SCH (05:40)
[2020-07-27] MEDS: LEVOTHYROXINE SODIUM 50 MCG TABLET PO SCH (05:40)
[2020-07-27 06:19] LABS: Basophils # (auto) 0.01 K/uL (0-0.2); Basophils % (auto) 0.1 %; Hematocrit (blood only) 39.8 % (37-47); Hemoglobin 12.5 g/dL (12.0-16.0); Immature Granulocytes # (auto) 0.08 K/uL (0.00-0.02); Immature Granulocytes % (auto) 0.4 %; Lymphocytes # (auto) 0.62 K/uL (1.2-3.4); Lymphocytes % (auto) 3.2 %; Mean Corpuscular Hemoglobin 30.8 pg (25-34); Mean Corpuscular Hgb Conc 31.4 g/dL (32-36); Mean Platelet Volume 11.7 fL (7.4-10.4); Monocytes % (auto) 4.1 %; Neutrophils # (auto) 17.81 K/uL (1.4-6.5); Neutrophils % (auto) 92.2 %; Platelet Count 249 K/uL (130-400); RDW Coefficient of Variation 13.7 % (11.5-14.5); RDW Standard Deviation 49.7 fL (36.4-46.3); Red Blood Count 4.06 M/uL (4.2-5.4); White Blood Count 19.32 K/uL (4.8-10.8)
--- NOTE | 2020-07-27 06:37 | Communication Note ---
Date of Service: July 27, 2020 6:30 AM Notified by RN patient tachycardia cardiac rate 1 50-1 70s, BP 132/88 as per RN. Patient denies chest pain, S OB. Does not feel good however as per patient. PPE : Pleasant, no overt respiratory distress, slightly anxious, frail O2 mask in place Decreased breath sounds, expiratory wheezes Tachycardic, no obvious murmurs EKG as per my interpretation : Rate 170, SVT, upsloping ST elevation lateral leads troponin 0.656 from 0.688 Serum potassium 3 Serum magnesium 1.5 AP SVT possible ACS Sepsis secondary to COVID-19 pneumonia Electrolytes, neb treatment, azithromycin contributory to tachyarrhythmia Patient not interested in invasive cardiac procedures as per discussion. PCU transfer Attempt vagal maneuvers Beta-janine for rate control Aspirin for CAD prevention Follow troponin TTE, Cardiology consult Re: Abnormal EKG, troponin elevation Replace electrolytes Hold neb treatments Replace azithromycin with Doxycycline DNR status reaffirmed. Patient son (Mr. Jose Vanegas) updated of developments and plan of care. He requests updates from providers through [phone]. Will relay to AM provider.
[2020-07-27] MEDS ORDERED: METOPROLOL TARTRATE 25 MG TAB PO STA (06:46)
[2020-07-27] MEDS ORDERED: ASPIRIN 81 MG ECTAB PO STA (06:47)
--- NOTE | 2020-07-27 06:50 | Electrocardiogram Report ---
Test Reason : Blood Pressure : / mmHG Vent. Rate : 127 BPM Atrial Rate : 127 BPM P-R Int : 128 ms QRS Dur : 116 ms QT Int : 336 ms P-R-T Axes : 084 268 061 degrees QTc Int : 488 ms Poor data quality, interpretation may be adversely affected Sinus tachycardia with Premature supraventricular complexes Possible Left atrial enlargement Right bundle branch block Septal infarct (cited on or before 26-JUL-2020) Abnormal ECG When compared with ECG of 22-JAN-2020 13:28, Premature supraventricular complexes are now Present Questionable change in initial forces of Septal leads Confirmed by Scott Lopez ([id number]) on 07/27/2020 6:50:28 AM Referred By: REFERRED SELF Confirmed By:Scott Lopez
[2020-07-27 06:55] LABS: BUN Creatinine Ratio 30.1 (10-20); Creatinine Clr Calc Pharmacy 40.4 ml/min; Est GFR (African American) 92.5; Est GFR (Non-African American) 79.8
[2020-07-27 07:09] LABS: C Reactive Protein 19.6 mg/dl (0-0.29)
[2020-07-27] MEDS ORDERED: METOPROLOL TARTRATE 1 MG/ML VIAL IV STA ×2 (07:12→07:36)
[2020-07-27 07:22] LABS: Magnesium 1.5 mg/dl (1.8-2.4); Troponin I 0.656 ng/ml (0-0.045)
[2020-07-27] MEDS ORDERED: POTASSIUM CHLORIDE 10 MEQ TABCR PO STA (07:41)
[2020-07-27] MEDS: INSULIN ASPART 100 UNITS/ML 3 ML PEN SC SCH ×4 (08:00→21:12)
[2020-07-27] MEDS: MAGNESIUM SULFATE / D5W 1 GM/100 ML BAG IV SCH ×2 (08:05→10:06)
[2020-07-27] MEDS: HEPARIN SOD 5,000 UNIT/0.5 ML VIAL SQ SCH ×2 (08:09→20:17)
[2020-07-27] MEDS: FLUTICASONE FUROATE 100MCG 14 PUFFS/INHALER INH SCH (08:10)
[2020-07-27] MEDS: DOXYCYCLINE HYCLATE 100 MG CAP PO SCH ×2 (08:12→20:10)
[2020-07-27] MEDS ORDERED: METOPROLOL TARTRATE 1 MG/ML VIAL IV PRN (08:54)
--- NOTE | 2020-07-27 08:58 | XRay Report ---
XR chest 1V portable CLINICAL HISTORY: low o2 COMPARISON STUDY: Chest radiograph and chest CT July 26, 2020. FINDINGS: Lung volumes are normal. There is no pneumothorax or pleural effusion. Bibasilar opacities have mildly increased. There is no evidence for pulmonary edema. Cardiac size is normal. Emphysema is present. IMPRESSION: 1. Progression of bibasilar airspace opacities which favor an infectious process. 2. Emphysema. ACT 112: Negative or not required by law. Electronically signed by: Jean-Claude Chavez M.D. 07/27/2020 8:57 AM
[2020-07-27] MEDS ORDERED: AZITHROMYCIN 250 MG TAB PO SCH (09:00)
[2020-07-27] MEDS ORDERED: UMECLIDINIUM/VILANTEROL 62.5/25MCG 7 PUFFS/INHALER INH SCH (09:00)
[2020-07-27 09:19] LABS: Estimated Average Glucose 123 mg/dl; Hemoglobin A1C 5.9 % (4.5-5.6)
[2020-07-27] MEDS ORDERED: POTASSIUM CHLORIDE 10 MEQ TABCR PO ONE (09:30)
[2020-07-27 11:35] LABS: Thyroid Stimulating Hormone 0.61 uIu/ml (0.300-4.500); Troponin I 0.691 ng/ml (0-0.045)
[2020-07-27] MEDS: cefTRIAXone SODIUM 2,000 MG in DEXTROSE 5% 50 ML IV SCH (12:02)
[2020-07-27] MEDS: ASCORBIC ACID 500 MG TAB PO SCH (12:07)
[2020-07-27] MEDS: FERROUS SULFATE 325 MG TAB PO SCH (12:07)
[2020-07-27] MEDS: REMDESIVIR 100 MG in SODIUM CHLORIDE 0.9% 230 ML IV SCH (12:56)
[2020-07-27] MEDS: SODIUM CHLORIDE 0.9% 10ML FLUSH IV SCH (13:58)
--- NOTE | 2020-07-27 14:26 | Cardiology Consultation ---
Date of Consultation July 27, 2020 Assessment & Plan (1) Paroxysmal atrial fibrillation: ECGs and telemetry reviewed. There is evidence of paroxysmal atrial fibrillation, sinus tachycardia, frequent PACs, as well as short salvos of paroxysmal atrial tachycardia. Dysrhythmias occurring in the setting of hypokalemia and hypomagnesemia. Electrolytes supplemented this a.m. Recommend repeat basic metabolic panel and serum magnesium level. Continue metoprolol 25 mg twice daily. As needed intravenous Lopressor 2.5 mg every 4 hours as needed for heart rate greater than 120 bpm. Recommend at least short-term intravenous heparin with continue telemetry observation. custodial candidacy for anticoagulation not determined at this time. A resting 2D transthoracic echocardiogram was ordered, however, would not be performed currently as I do not believe this will alter management. Recent echocardiogram performed in 2019 demonstrated preserved LV systolic function without significant valvular pathology. Therefore, she is diagnosed with nonvalvular atrial fibrillation. There are no signs of volume overload, decompensated failure currently. (2) Elevated troponin I level: Likely related to demand ischemia in the setting of hypoxia, COVID-19 pneumonia, severe emphysema, atrial fibrillation with rapid ventricular response, and sinus tachycardia. Plaque rupture event less likely. (3) Premature atrial complexes: Reduce frequency with electrolyte supplementation in addition of beta- janine therapy. (4) Sinus tachycardia: Secondary to sepsis, COVID-19 infection, hypoxia. (5) Hypokalemia: Supplement as indicated. Repeat BMP. (6) Hypomagnesemia: Supplement as indicated. Repeat serum magnesium level. (7) COVID-19: Treatment as per internal medicine. Supplement oxygen as needed. (8) Hypothyroid: TSH within normal limits. Continue levothyroxine. History of Present Illness Reason for Consultation: Abnormal ECG, elevated troponin Requesting Physician: Dr. Mendoza Attending Physician: Kristie Zhou MD History of Present Illness 85-year-old female patient presented to the emergency department from [facility] with shortness of breath. Hypoxia documented at [facility]. Oxygen saturation of 80% noted on presentation. Patient diagnosed with COVID-19 last week. Covid test positive on admission 07/26/2020. Overnight, patient developed tachycardia. Telemetry reveals sinus tach with frequent PACs as well as bursts of paroxysmal atrial fibrillation. Electrolyte derangement noted included hypomagnesemia, and hypokalemia. She was treated with 2.5 mg of intravenous metoprolol as well as 25 mg oral dose. Telemetry currently reveals sinus rhythm. Patient seen and examined at the bedside. She is a poor historian due to underlying dementia. She is aware of her Covid pneumonia diagnosis. Denies any shortness of breath or chest pain. No subjective palpitations or awareness of her tachycardia this a.m. Denies orthopnea, PND, or edema. No lightheadedness, dizziness, syncope, or near syncope. Denies personal history of coronary disease, congestive heart failure, rheumatic fever as a child. Most recent resting 2D transthoracic echocardiogram performed in June 2018 demonstrates preserved LV systolic function without significant valvular pathology. Allergies Allergy/AdvReac Type Severity Reaction Status Date / Time Penicillins Allergy Unknown Unknown Verified 07/26/20 11:39 sulfamethoxazole AdvReac Mild LETHARGIC Unverified 07/26/20 10:26 [From Bactrim] trimethoprim [From Bactrim] AdvReac Mild LETHARGIC Unverified 07/26/20 10:26 Home Medications Medication Instructions Recorded Confirmed Type levothyroxine 50 mcg PO DAILYBB 07/03/18 07/26/20 History mesalamine [Apriso] 1.5 g PO QAM 07/03/18 07/26/20 History raloxifene [Evista] 60 mg PO QPM 07/03/18 07/26/20 History ipratropium-albuterol 3 ml INHALATION QID PRN 08/09/18 07/26/20 History trazodone 50 mg PO PM 08/09/18 07/26/20 History ferrous sulfate 325 mg PO QDL 01/22/20 07/26/20 History prednisone 2.5 mg PO QAM 01/22/20 07/26/20 History acetaminophen [Tylenol Extra 500 mg PO Q6H PRN 07/26/20 07/26/20 History Strength] ascorbic acid (vitamin C) [Vitamin 1 g PO QDL 07/26/20 07/26/20 History C] leohcaytouy-hvecylluw-dsfarlhu 1 inh INHALATION QAM 07/26/20 07/26/20 History [Trelegy Ellipta] melatonin 1 mg PO HS 07/26/20 07/26/20 History methylprednisolone 4 mg PO QID 07/26/20 07/26/20 History tramadol 50 mg PO Q6H PRN 07/26/20 07/26/20 History Patient History Medical History (Updated 07/27/20 @ 14:35 by Munir Massey DO) Adjustment disorder with mixed anxiety and depressed mood COPD (chronic obstructive pulmonary disease) Essential hypertension Hypercholesteremia Hypothyroidism Iron deficiency anemia Osteoporosis Requires supplemental oxygen Ulcerative colitis Surgical History History of D&C History of tonsillectomy Family History Other Family history non-contributory Social History Smoking Status: Former smoker Tobacco Type: Cigarettes Cigarettes Per Day: pt unsure; Second Hand Exposure: No; Hx Alcohol Use: No Hx Substance Use: No Preferred Language: Nauruan Communication Ability: Effective Bow Tacker Required: No Beliefs That Will Affect Care: None marital status: / Current Living Situation: Custodial Current Living Situation Comment: has 07/11 caregivers How many Children do You have: 1 Feels Safe at Home: Yes Assistive Devices: Oxygen - Continuous Review of Systems Review of Systems: All systems reviewed & are unremarkable except as noted in Subjective Physical Exam Constitutional: well developed and well nourished; no acute distress Respiratory: no respiratory distress and no labored breathing Auscultation: + diminished lung sounds (Bilateral) and + crackles (Bilateral bases); no rhonchi and no wheezes Cardiovascular: Rate/Rhythm: regular rate and regular rhythm Heart Sounds: normal S1 and normal S2; no murmur Vessels: no JVD Extremities: no edema Gastrointestinal (Abdomen): Inspection/Auscultation: abdomen normal to inspection and normal bowel sounds; abdomen not distended Percussion/Palpation: abdomen nontender, no guarding and abdomen not rigid Neurologic: CN's II-XI intact bilaterally and moves all extremities; no focal motor deficits Motor/Sensory: no tremor Psychiatric: Insight: + poor insight Results & Data ([facility]) Vital Signs (Past 12 Hours) Vital Signs Temp Pulse Pulse Pulse Resp BP BP 07/27/20 10:54 37.0 C 90 32 H 100/81 07/27/20 10:11 92 H 26 H 07/27/20 09:00 28 H 07/27/20 08:14 97 H 24 143/75 H 07/27/20 08:00 140 H 07/27/20 07:53 139 H 128/78 07/27/20 07:44 149 H 22 128/87 07/27/20 06:26 149 H 132/88 07/27/20 03:26 106 H 24 Pulse Ox 07/27/20 10:54 91 07/27/20 10:11 97 07/27/20 09:00 94 07/27/20 08:14 96 07/27/20 08:00 07/27/20 07:53 07/27/20 07:44 95 07/27/20 06:26 07/27/20 03:26 93 Diagnostic Findings CTA chest images personally reviewed. No evidence of central pulmonary emboli. There is severe emphysema. There are bilateral lower lobe and right middle lobe opacities concerning for pneumonia. (1) Hypothyroid Hypothyroidism type: unspecified Qualified Code(s): E03.9 - Hypothyroidism, unspecified
[2020-07-27] MEDS ORDERED: Heparin IV Adult Wt-Based Standard WITH Bolus Protocol IV SCH (14:30)
[2020-07-27] MEDS ORDERED: HEPARIN IV BOLUS 3,000 UNITS in SYRINGE 0 ML IV STA (14:43)
[2020-07-27] MEDS: HEPARIN SODIUM/DEXTROSE 25,000 UNITS/500 ML BAG IV SCH (15:00)
[2020-07-27] MEDS ORDERED: POTASSIUM CHLORIDE CRTAB 20 MEQ TABCR PO ONE (15:55)
--- NOTE | 2020-07-27 16:46 | Hospitalist Progress Note ---
Date of Service July 27, 2020 Assessment & Plan (1) COVID-19 virus infection: Diagnosed COVID-19 last Monday Continue with remdesivir/Decadron. Currently on 4 L of nasal cannula. Dimer elevated, will repeat tomorrow. We will also repeat CRP. (2) Pneumonia: Possible right lower lobe infiltration Leukocytosis on admission along with procalcitonin. Leukocytosis is improved today. Continue with ceftriaxone and doxycycline for now. (3) Acute on chronic respiratory failure with hypoxia: (4) COPD (chronic obstructive pulmonary disease): Patient with history of COPD and chronic hypoxic respiratory failure on home O2 presented to the ED today with worsening SOB and O2 desaturation at home. She also was COVID-19 + this past week outpatient. She was noted to have O2 sats in the 70s upon presentation. Started on O2 via OxyMask in the ED currently she is saturating the 90s with 4 to 5 L of oxygen. Patient is DNR/DNI. This was confirmed with patient's son on admission Continue Decadron and remdesivir. Continue Duoneb Q4h Aspiration precautions, fall precautions Continue isolation precautions for COVID (5) Elevated troponin: In the setting of demand ischemia. Cardiology has been consulted. (6) Tachycardia: (7) Essential hypertension: Intermittent pressures in the 180s. Proximal atrial fibrillation Cardiology input. Lites have been repleted. Continue Lopressor 25 mg twice daily. IV Lopressor 2.5 mg every 4 hours as needed for heart rate greater than 120. Echo is ordered. Heparin has been ordered for anticoagulation. (8) Hypokalemia: Repleted; reassess BMP in the morning (9) Hyperglycemia: Glucose elevated to > 200 on admission. No history of DM, but will add sliding scale insulin Possibly elevated secondary to infection (10) DVT prophylaxis: SQ Heparin Q12h Admission and Anticipated Discharge Date Admission Date: July 26, 2020 Subjective Resting comfortably this morning. Denies any significant shortness of breath or cough. Remains on 4 L of nasal cannula. Denies any chest pain, abdominal pain, diarrhea or dysuria. Overnight patient was found to be tachycardic in the 150s to 180s. Patient was transferred to PCU. Review of Systems Review of Systems: All systems reviewed & are unremarkable except as noted in HPI & below Physical Exam Physical Exam: General: A&Ox2 HENT: NCAT, MMM, EOMI Eyes: PERRLA Neck: Supple, normal range of motion CVS: normal rate and rhythm Resp: b/l coarse breath sounds Abdomen: Soft, ND/NT, +BS Extremities: No c/c/e Neuro: face symmetric, no gross focal deficits appreciated Skin: warm and dry, no rashes/lesions/errythema MSK: normal ROM, no joint swelling/erythema Results & Data Results & Data ([facility]) Vital Signs (Past 12 Hours) Vital Signs Temp Pulse Pulse Pulse Resp BP BP 07/27/20 15:26 93 H 07/27/20 14:56 36.8 C 94 H 32 H 178/88 H 07/27/20 10:54 37.0 C 90 32 H 100/81 07/27/20 10:11 92 H 26 H 07/27/20 09:00 28 H 07/27/20 08:14 97 H 24 143/75 H 07/27/20 08:00 140 H 07/27/20 07:53 139 H 128/78 07/27/20 07:44 149 H 22 128/87 07/27/20 06:26 149 H 132/88 Pulse Ox 07/27/20 15:26 07/27/20 14:56 92 07/27/20 10:54 91 07/27/20 10:11 97 07/27/20 09:00 94 07/27/20 08:14 96 07/27/20 08:00 07/27/20 07:53 07/27/20 07:44 95 07/27/20 06:26 (1) COPD (chronic obstructive pulmonary disease) COPD type: unspecified COPD Qualified Code(s): J44.9 - Chronic obstructive pulmonary disease, unspecified
[2020-07-27] MEDS ORDERED: ONDANSETRON INJ 2 MG/ML 2 ML VIAL IV PRN (16:52)
[2020-07-27 16:56] LABS: D Dimer 1900 ug/L FEU (0-500)
[2020-07-27] MEDS: traZODone HCL 50 MG TAB PO SCH ×2 (18:59→20:16)
[2020-07-27] MEDS ORDERED: Nursing to Pharmacy Communication SCH (19:00)
[2020-07-27] MEDS ORDERED: LEVALBUTEROL TARTRATE 15 GM HFA.AER.AD INH STA (19:34)
[2020-07-27] MEDS: METOPROLOL TARTRATE 25 MG TAB PO SCH (20:09)
[2020-07-27] MEDS: MELATONIN 3 MG TAB PO SCH (20:16)
[2020-07-27 23:01] LABS: Partial Thromboplastin Ratio > 5.3
[2020-07-27 23:02] LABS: Partial Thromboplastin Time > 139.0 Seconds (21.0-31.0)
[2020-07-28 01:48] LABS: Partial Thromboplastin Ratio 2.8
--- NOTE | 2020-07-28 05:37 | Electrocardiogram Report ---
Test Reason : Blood Pressure : / mmHG Vent. Rate : 170 BPM Atrial Rate : 025 BPM P-R Int : 000 ms QRS Dur : 110 ms QT Int : 266 ms P-R-T Axes : 000 268 -48 degrees QTc Int : 447 ms Poor data quality, interpretation may be adversely affected Atrial fibrillation with rapid ventricular response Right superior axis deviation Incomplete right bundle branch block , plus right ventricular hypertrophy Abnormal ECG When compared with ECG of 26-JUL-2020 10:04, Atrial fibrillation has replaced Sinus tachycardia Confirmed by Scott Lopez ([id number] on 07/28/2020 5:37:26 AM Referred By: REFERRED SELF Confirmed By:Scott Lopez
--- NOTE | 2020-07-28 05:41 | Electrocardiogram Report ---
Test Reason : Blood Pressure : / mmHG Vent. Rate : 103 BPM Atrial Rate : 103 BPM P-R Int : 134 ms QRS Dur : 120 ms QT Int : 370 ms P-R-T Axes : 067 -74 018 degrees QTc Int : 484 ms Sinus tachycardia with frequent Premature atrial complexes Right bundle branch block Left anterior fascicular block Bifascicular block Abnormal ECG When compared with ECG of 27-JUL-2020 06:42, Sinus tachycardia has replaced Atrial fibrillation Confirmed by Scott Lopez ([id number] on 07/28/2020 5:41:17 AM Referred By: REFERRED SELF Confirmed By:Scott Lopez
[2020-07-28] MEDS: LEVOTHYROXINE SODIUM 50 MCG TABLET PO SCH (05:42)
[2020-07-28 06:25] LABS: Hematocrit (blood only) 40.1 % (37-47); Hemoglobin 12.6 g/dL (12.0-16.0); Mean Corpuscular Hgb Conc 31.4 g/dL (32-36); Mean Corpuscular Volume 98.8 fL (80-100); Mean Platelet Volume 12.4 fL (7.4-10.4); Platelet Count 316 K/uL (130-400); RDW Coefficient of Variation 13.7 % (11.5-14.5); RDW Standard Deviation 49.4 fL (36.4-46.3); Red Blood Count 4.06 M/uL (4.2-5.4); White Blood Count 18.89 K/uL (4.8-10.8)
[2020-07-28 06:43] LABS: ALC (manual) 0.66 K/uL (1.2-3.4); ANC (manual) 17.42 K/uL (1.4-6.5); Lymphocytes # (manual) 0.66 K/uL (1.2-3.4); Lymphocytes % (manual) 3.5 %; Monocytes # (manual) 0.81 K/uL (0.11-0.59); Monocytes % (manual) 4.3 %; Neutrophils # (manual) 17.42 K/uL (1.4-6.5); Neutrophils % (manual) 92.2 %; RBC Morphology Unremarkable
[2020-07-28 07:04] LABS: Albumin Globulin Ratio 0.6 (0.9-2); Albumin Level 2.4 gm/dl (3.4-5.0); BUN Creatinine Ratio 50.4 (10-20); Bilirubin,Total 0.2 mg/dl (0.2-1); C Reactive Protein 15.9 mg/dl (0-0.29); Calcium 8.3 mg/dl (8.5-10.1); Creatinine Clr Calc Pharmacy 47.6 ml/min; Est GFR (African American) 95.5; Est GFR (Non-African American) 82.4; Potassium 5.3 mmol/L (3.5-5.1); Total Protein 6.4 gm/dl (6.4-8.2)
[2020-07-28] MEDS: LEVALBUTEROL TARTRATE 15 GM HFA.AER.AD INH SCH ×4 (07:30→19:15)
[2020-07-28] MEDS: INSULIN ASPART 100 UNITS/ML 3 ML PEN SC SCH ×4 (08:00→21:34)
[2020-07-28] MEDS: dexAMETHasone 6 MG in SYRINGE 0 ML IV SCH (08:43)
[2020-07-28] MEDS: cefTRIAXone SODIUM 2,000 MG in DEXTROSE 5% 50 ML IV SCH (08:43)
[2020-07-28] MEDS: FLUTICASONE FUROATE 100MCG 14 PUFFS/INHALER INH SCH (08:44)
[2020-07-28] MEDS: METOPROLOL TARTRATE 25 MG TAB PO SCH ×2 (08:44→20:03)
[2020-07-28] MEDS: DOXYCYCLINE HYCLATE 100 MG CAP PO SCH ×2 (08:45→20:03)
[2020-07-28] MEDS: ASPIRIN 81 MG ECTAB PO SCH (08:45)
[2020-07-28 08:52] LABS: Partial Thromboplastin Ratio 3.6
[2020-07-28 09:24] LABS: Partial Thromboplastin Time 93.8 Seconds (21.0-31.0)
--- NOTE | 2020-07-28 11:06 | Cardiology Progress Note ---
Date of Service July 28, 2020 Assessment & Plan (1) Paroxysmal atrial fibrillation: No recurrent atrial fibrillation overnight. Continue metoprolol tartrate 25 mg twice daily and intravenous heparin infusion. Replace electrolytes as indicated. (2) Elevated troponin I level: Likely related to demand ischemia in the setting of hypoxia, COVID-19 pneumonia, severe emphysema, atrial fibrillation with rapid ventricular response, and sinus tachycardia. Plaque rupture event less likely. (3) Premature atrial complexes: Reduce frequency with electrolyte supplementation in addition of beta- janine therapy. (4) Sinus tachycardia: Secondary to sepsis, COVID-19 infection, hypoxia. Continue beta-janine. (5) Hypomagnesemia: Supplement as indicated. Repeat serum magnesium level today. (6) COVID-19: Treatment as per internal medicine. Supplement oxygen as needed. (7) Hypothyroid: TSH within normal limits. Continue levothyroxine. (8) Hyperkalemia: Hold potassium supplementation. Repeat basic metabolic panel this afternoon. Admission and Anticipated Discharge Date Admission Date: July 26, 2020 Subjective Patient seen and examined at the bedside. Offers no complaints. Telemetry demonstrates sinus rhythm. Mildly hyperkalemic today, however, it appears the patient received potassium supplementation yesterday. Denies palpitations or chest pain. Cough and shortness of breath unchanged. No edema orthopnea, or PND. Poor historian. Review of Systems Review of Systems: Unobtainable due to cognitive status Physical Exam Constitutional: well developed and well nourished; no acute distress Respiratory: no respiratory distress and no labored breathing Auscultation: + diminished lung sounds (Bilateral) and + crackles (Bilateral bases); no rhonchi and no wheezes Cardiovascular: Rate/Rhythm: regular rate and regular rhythm Heart Sounds: normal S1 and normal S2; no murmur Vessels: no JVD Extremities: no edema Gastrointestinal (Abdomen): Inspection/Auscultation: abdomen normal to inspection and normal bowel sounds; abdomen not distended Percussion/Palpation: abdomen nontender, no guarding and abdomen not rigid Neurologic: CN's II-XI intact bilaterally and moves all extremities; no focal motor deficits Motor/Sensory: no tremor Psychiatric: Insight: + poor insight Results & Data ([facility]) Vital Signs (Past 12 Hours) Vital Signs Temp Pulse Pulse Pulse Resp BP Pulse Ox 07/28/20 10:35 36.6 C 75 34 H 160/80 H 98 04/13/21 07:53 92 H 07/28/20 07:38 36.8 C 90 34 H 166/64 H 91 07/28/20 07:33 86 18 99 07/28/20 03:27 36.9 C 86 87 20 168/75 H 94 (1) Hypothyroid Hypothyroidism type: unspecified Qualified Code(s): E03.9 - Hypothyroidism, unspecified
[2020-07-28] MEDS: REMDESIVIR 100 MG in SODIUM CHLORIDE 0.9% 230 ML IV SCH (12:28)
--- NOTE | 2020-07-28 13:09 | Hospitalist Progress Note ---
Date of Service July 28, 2020 Assessment & Plan (1) COVID-19 virus infection: Diagnosed COVID-19 last Monday Continue with remdesivir/Decadron. Currently on 4 L of nasal cannula. Remains afebrile. Leukocytosis is improving. CRP is down to 15.9 from 19.6. (2) Pneumonia: Possible right lower lobe infiltration Leukocytosis on admission along with procalcitonin. Leukocytosis continues to improve. Continue with ceftriaxone and doxycycline for now. (3) Acute on chronic respiratory failure with hypoxia: (4) COPD (chronic obstructive pulmonary disease): Patient with history of COPD and chronic hypoxic respiratory failure on home O2 presented to the ED today with worsening SOB and O2 desaturation at home. She also was COVID-19 + this past week outpatient. She was noted to have O2 sats in the 70s upon presentation. Started on O2 via OxyMask in the ED currently she is saturating the 90s with 4 to 5 L of oxygen. Patient is DNR/DNI. This was confirmed with patient's son on admission Continue Decadron and remdesivir. Continue Duoneb Q4h Aspiration precautions, fall precautions Continue isolation precautions for COVID. Will give small dose of IV Lasix 20 mg now. Monitor ins and outs along with daily weights. (5) Elevated troponin: In the setting of demand ischemia. Cardiology is on board. Proximal atrial fibrillation Appreciate cardiology input. Continue Lopressor 25 mg twice daily. IV Lopressor 2.5 mg every 4 hours as needed for heart rate greater than 120. Continue with heparin infusion for now. (6) Tachycardia: (7) Essential hypertension: Intermittent pressures in the 160s. (8) Hypokalemia: Resolved. Hyperkalemia Order IV Lasix 20 mg now. BMP tomorrow morning. (9) Hyperglycemia: Glucose elevated to > 200 on admission. No history of DM, but will add sliding scale insulin Possibly elevated secondary to infection (10) DVT prophylaxis: SQ Heparin Q12h Admission and Anticipated Discharge Date Admission Date: July 26, 2020 Subjective Patient is on 5 L of nasal cannula. She feels tired. States her appetite is good. Denies any significant shortness of breath or any cough. Review of Systems Review of Systems: All systems reviewed & are unremarkable except as noted in HPI & below Physical Exam Physical Exam: General: A&Ox2 HENT: NCAT, MMM, EOMI Eyes: PERRLA Neck: Supple, normal range of motion CVS: normal rate and rhythm Resp: b/l coarse breath sounds Abdomen: Soft, nondistended and nontender Extremities: No c/c/e Neuro: face symmetric, no gross focal deficits appreciated Skin: warm and dry, no rashes/lesions/errythema MSK: normal ROM, no joint swelling/erythema Results & Data Results & Data ([facility]) Vital Signs (Past 12 Hours) Vital Signs Temp Pulse Pulse Pulse Resp BP Pulse Ox 07/28/20 11:23 73 18 96 07/28/20 10:35 36.6 C 75 34 H 160/80 H 98 07/28/20 07:53 92 H 07/28/20 07:38 36.8 C 90 34 H 166/64 H 91 07/28/20 07:33 86 18 99 07/28/20 03:27 36.9 C 86 87 20 168/75 H 94 (1) COPD (chronic obstructive pulmonary disease) COPD type: unspecified COPD Qualified Code(s): J44.9 - Chronic obstructive pulmonary disease, unspecified
[2020-07-28] MEDS: ASCORBIC ACID 500 MG TAB PO SCH (13:36)
[2020-07-28] MEDS: FERROUS SULFATE 325 MG TAB PO SCH (13:36)
[2020-07-28] MEDS: SODIUM CHLORIDE 0.9% 10ML FLUSH IV SCH (13:36)
[2020-07-28] MEDS ORDERED: FUROSEMIDE 20 MG in SYRINGE 0 ML IV ONE (14:15)
[2020-07-28 17:00] LABS: BUN Creatinine Ratio 43.7 (10-20); Calcium 8.7 mg/dl (8.5-10.1); Est GFR (African American) 87.3; Est GFR (Non-African American) 75.3; Magnesium 2.3 mg/dl (1.8-2.4); Potassium 5.1 mmol/L (3.5-5.1)
[2020-07-28 17:04] LABS: Partial Thromboplastin Ratio 2.1
[2020-07-28 17:12] LABS: Partial Thromboplastin Time 55.2 Seconds (21.0-31.0)
[2020-07-28] MEDS: traZODone HCL 50 MG TAB PO SCH (20:03)
[2020-07-28] MEDS: MELATONIN 3 MG TAB PO SCH (20:04)
[2020-07-29] MEDS: LEVOTHYROXINE SODIUM 50 MCG TABLET PO SCH (05:43)
[2020-07-29] MEDS: HEPARIN SODIUM/DEXTROSE 25,000 UNITS/500 ML BAG IV SCH (05:43)
[2020-07-29 06:58] LABS: Partial Thromboplastin Ratio 2.5
[2020-07-29] MEDS: LEVALBUTEROL TARTRATE 15 GM HFA.AER.AD INH SCH (07:11)
[2020-07-29 07:14] LABS: Partial Thromboplastin Time 66.9 Seconds (21.0-31.0)
[2020-07-29] MEDS ORDERED: LEVALBUTEROL TARTRATE 15 GM HFA.AER.AD INH PRN (07:49)
[2020-07-29] MEDS: dexAMETHasone 6 MG in SYRINGE 0 ML IV SCH (09:17)
[2020-07-29] MEDS: INSULIN ASPART 100 UNITS/ML 3 ML PEN SC SCH ×4 (09:17→21:51)
[2020-07-29] MEDS: ASPIRIN 81 MG ECTAB PO SCH (09:18)
[2020-07-29] MEDS: DOXYCYCLINE HYCLATE 100 MG CAP PO SCH ×2 (09:18→21:43)
[2020-07-29] MEDS: METOPROLOL TARTRATE 25 MG TAB PO SCH ×2 (09:20→21:51)
[2020-07-29] MEDS: cefTRIAXone SODIUM 2,000 MG in DEXTROSE 5% 50 ML IV SCH (09:23)
[2020-07-29] MEDS: FLUTICASONE FUROATE 100MCG 14 PUFFS/INHALER INH SCH (09:30)
[2020-07-29] MEDS: REMDESIVIR 100 MG in SODIUM CHLORIDE 0.9% 230 ML IV SCH (12:38)
[2020-07-29] MEDS: ASCORBIC ACID 500 MG TAB PO SCH (12:38)
[2020-07-29] MEDS: APIXABAN 2.5 MG TAB PO SCH ×2 (12:38→21:43)
[2020-07-29] MEDS: BENZONATATE 100 MG CAPSULE PO SCH ×2 (12:38→21:43)
[2020-07-29] MEDS: FERROUS SULFATE 325 MG TAB PO SCH (12:39)
--- NOTE | 2020-07-29 12:41 | Cardiology Progress Note ---
Date of Service July 29, 2020 Assessment & Plan (1) Paroxysmal atrial fibrillation: No recurrent atrial fibrillation x48 hours. Continue metoprolol tartrate 25 mg twice daily.transition patient from intravenous heparin to reduced dose Eliquis 2.5 mg twice daily. Replace electrolytes as indicated. (2) Elevated troponin I level: Likely related to demand ischemia in the setting of hypoxia, COVID-19 pneumonia, severe emphysema, atrial fibrillation with rapid ventricular response, and sinus tachycardia. Plaque rupture event less likely. (3) Premature atrial complexes: Controlled with electrolyte supplementation in addition of beta-janine therapy. (4) Sinus tachycardia: Secondary to sepsis, COVID-19 infection, hypoxia. Resting heart rate improved. Continue beta-janine. (5) Hypomagnesemia: Serum magnesium level within normal limits 07/28/2020. (6) COVID-19: Treatment as per internal medicine. Supplement oxygen as needed. (7) Hypothyroid: TSH within normal limits. Continue levothyroxine. (8) Hyperkalemia: Serum potassium is trended down to high normal range. Repeat basic metabolic panel in a.m. Admission and Anticipated Discharge Date Admission Date: July 26, 2020 Subjective Patient seen and examined at the bedside. Denies chest pain or shortness of breath. Poor historian due to underlying dementia. Telemetry reveals sinus rhythm. No recurrent atrial fibrillation. Serum potassium has trended downward to the high normal range. No concerns reported by nursing staff. Review of Systems Review of Systems: Unobtainable due to cognitive status Physical Exam Constitutional: well developed and well nourished; no acute distress Respiratory: no respiratory distress and no labored breathing Auscultation: + diminished lung sounds (Bilateral) and + crackles (Bilateral bases); no rhonchi and no wheezes Cardiovascular: Rate/Rhythm: regular rate and regular rhythm Heart Sounds: normal S1 and normal S2; no murmur Vessels: no JVD Extremities: no edema Gastrointestinal (Abdomen): Inspection/Auscultation: abdomen normal to inspection and normal bowel sounds; abdomen not distended Percussion/Palpation: abdomen nontender, no guarding and abdomen not rigid Neurologic: CN's II-XI intact bilaterally and moves all extremities; no focal motor deficits Motor/Sensory: no tremor Psychiatric: Insight: + poor insight Results & Data ([facility]) Vital Signs (Past 12 Hours) Vital Signs Temp Pulse Pulse Resp BP Pulse Ox 04/14/21 11:35 36.5 C 82 17 152/97 H 96 07/29/20 07:32 36.5 C 81 17 159/62 H 91 07/29/20 07:11 73 18 93 (1) Hypothyroid Hypothyroidism type: unspecified Qualified Code(s): E03.9 - Hypothyroidism, unspecified
--- NOTE | 2020-07-29 12:56 | Hospitalist Progress Note ---
Date of Service July 29, 2020 Assessment & Plan (1) COVID-19 virus infection: Diagnosed COVID-19 last Monday07/22/20 Continue with remdesivir/Decadron. Currently on 6 L of nasal cannula. clinically improving (2) Pneumonia: Possible right lower lobe infiltration Leukocytosis on admission along with procalcitonin. on ceftriaxone and doxycycline will repeat CBC and Pro rashid in am pt has been afebrile with improvement of cough plan to de escalate Abx tomorrow if Labs are improved (3) Acute on chronic respiratory failure with hypoxia: baseline advanced COPD home 02 3 L worsening of resp failure due to COVID 19 pneumonia (4) COPD (chronic obstructive pulmonary disease): Patient with history of COPD and chronic hypoxic respiratory failure on home O23 L presented with worsening SOB and O2 desaturation at home. She also was COVID-19 + this past week outpatient. She was noted to have O2 sats in the 70s upon presentation. required O2 via OxyMask in the ED currently on 6L 02 spo2 96% plan to wean down o2 goal SPo2 92% Patient is DNR/DNI. This was confirmed with patient's son on admission Continue Decadron and remdesivir. Aspiration precautions, fall precautions Continue isolation precautions for COVID. Dysphagia: complains of sore throat , difficulty in swallowing , nursing reports pt refused to eat breakfast this am ,took meds crushed in apple sauce ordered for Tesj[place] pears , aspiration precaution (5) Elevated troponin: In the setting of demand ischemia. Cardiology is on board. Proximal atrial fibrillation Appreciate cardiology input. currently sinus with rate controlled Continue Lopressor 25 mg twice daily. anticoagulation changed to Eliquis 2.5 mg BID Dc IV heparin (6) Tachycardia: (7) Essential hypertension: (8) Hypokalemia: Resolved. Hyperkalemia K borderline high ~5 (9) Hyperglycemia: Glucose elevated to > 200 on admission. No history of DM, but will add sliding scale insulin Possibly elevated secondary to infection check hb a1c (10) DVT prophylaxis: Eliquis DNR/DNI son will be given update over phone Admission and Anticipated Discharge Date Admission Date: July 26, 2020 Subjective Follow up visit for COVID 19 pneumonia, paroxysmal afib pt reports of feeling tired , cough is better , on 6 L 02 via nasal canula has been afebrile with stable vitals Review of Systems Review of Systems: All systems reviewed & are unremarkable except as noted in Subjective Physical Exam Constitutional: WD/WN, vitals as above + thin and + frail appearing Eyes: + anicteric sclerae ENMT: external ear and nose normal, oropharynx normal Respiratory: + cough Auscultation: + diminished lung sounds Cardiovascular: Rate/Rhythm: regular rate and regular rhythm Gastrointestinal (Abdomen): Percussion/Palpation: abdomen soft; abdomen nontender Musculoskeletal: Extremities: extremities normal to inspection (generalized weakness ) Skin: no rashes, warm and dry Neurologic: PERRL, EOMI, accommodation nl, no face palsy, no dysarthria Psychiatric: Orientation: alert and oriented to person (baseline dementia ) Results & Data Results & Data ([facility]) Vital Signs (Past 12 Hours) Vital Signs Temp Pulse Pulse Resp BP Pulse Ox 07/29/20 11:35 36.5 C 82 17 152/97 H 96 07/29/20 07:32 36.5 C 81 17 159/62 H 91 07/29/20 07:11 73 18 93 (1) COPD (chronic obstructive pulmonary disease) COPD type: unspecified COPD Qualified Code(s): J44.9 - Chronic obstructive pulmonary disease, unspecified
[2020-07-29] MEDS: SODIUM CHLORIDE 0.9% 10ML FLUSH IV SCH (14:34)
[2020-07-29] MEDS: MELATONIN 3 MG TAB PO SCH (21:43)
[2020-07-29] MEDS: traZODone HCL 50 MG TAB PO SCH (21:43)
[2020-07-30 06:41] LABS: Hematocrit (blood only) 40.1 % (37-47); Hemoglobin 12.6 g/dL (12.0-16.0); Mean Corpuscular Hgb Conc 31.4 g/dL (32-36); Mean Corpuscular Volume 98.5 fL (80-100); Mean Platelet Volume 12.1 fL (7.4-10.4); Platelet Count 373 K/uL (130-400); Red Blood Count 4.07 M/uL (4.2-5.4); White Blood Count 11.54 K/uL (4.8-10.8)
[2020-07-30 07:07] LABS: BUN Creatinine Ratio 67.4 (10-20); C Reactive Protein 6.12 mg/dl (0-0.29); Creatinine Clr Calc Pharmacy 38.9 ml/min; Est GFR (African American) 91.6; Potassium 4.2 mmol/L (3.5-5.1)
[2020-07-30] MEDS: LEVOTHYROXINE SODIUM 50 MCG TABLET PO SCH (07:48)
[2020-07-30] MEDS: dexAMETHasone 6 MG in SYRINGE 0 ML IV SCH (07:49)
[2020-07-30] MEDS: FLUTICASONE FUROATE 100MCG 14 PUFFS/INHALER INH SCH (08:54)
[2020-07-30] MEDS: ASPIRIN 81 MG ECTAB PO SCH (08:54)
[2020-07-30] MEDS: cefTRIAXone SODIUM 2,000 MG in DEXTROSE 5% 50 ML IV SCH (08:55)
[2020-07-30] MEDS: APIXABAN 2.5 MG TAB PO SCH ×2 (08:55→20:44)
[2020-07-30] MEDS: METOPROLOL TARTRATE 25 MG TAB PO SCH ×2 (08:55→20:44)
[2020-07-30] MEDS: DOXYCYCLINE HYCLATE 100 MG CAP PO SCH ×2 (08:56→20:44)
[2020-07-30] MEDS: BENZONATATE 100 MG CAPSULE PO SCH ×3 (08:56→20:44)
[2020-07-30] MEDS: INSULIN ASPART 100 UNITS/ML 3 ML PEN SC SCH ×3 (08:56→17:10)
--- NOTE | 2020-07-30 10:53 | Hospitalist Progress Note ---
Date of Service July 30, 2020 Assessment & Plan (1) COVID-19 virus infection: Diagnosed COVID-19 last Monday07/22/20 Continue with remdesivir complete 5 days tx /Decadron. hypoxia improving 5L 02 via Nasal canula ( at baseline on 4 L 02 cont ) clinically improving (2) Pneumonia: Possible right lower lobe infiltration on ceftriaxone and doxycycline CBC and Pro rashid level has improved pt has been afebrile with improvement of cough IV rocephin D/rosmery cont PO Doxy for 7 days (3) Acute on chronic respiratory failure with hypoxia: baseline advanced COPD home 02 4 L worsening of resp failure due to COVID 19 pneumonia slowly improving (4) COPD (chronic obstructive pulmonary disease): Patient with history of COPD and chronic hypoxic respiratory failure on home O23 L presented with worsening SOB and O2 desaturation at home. She also was COVID-19 + this past week outpatient. She was noted to have O2 sats in the 70s upon presentation. required O2 via OxyMask in the ED improved on 5L 02 spo2 96% plan to wean down o2 goal SPo2 92% Patient is DNR/DNI. This was confirmed with patient's son on admission Continue Decadron and remdesivir-complete 5 days tx Aspiration precautions, fall precautions Continue isolation precautions for COVID. Dysphagia: complains of sore throat , difficulty in swallowing , nursing reports pt refused to eat breakfast this am ,took meds crushed in apple sauce ordered for Tessalon pears , aspiration precaution (5) Elevated troponin: In the setting of demand ischemia. Cardiology is on board. Proximal atrial fibrillation Appreciate cardiology input. currently sinus with rate controlled Continue Lopressor 25 mg twice daily. anticoagulation changed to Eliquis 2.5 mg BID Hyperkalemia : resolved K -normal level (6) Hyperglycemia: Glucose elevated to > 200 on admission. No history of DM, but will add sliding scale insulin Possibly elevated secondary to infection check hb a1c (7) DVT prophylaxis: Eliquis DNR/DNI son will be given update over phone Disposition : return to [facility] when medically stable Admission and Anticipated Discharge Date Admission Date: July 26, 2020 Subjective Follow up visit for COVID 19 pneumonia, paroxysmal afib wakes up easily with voice pt reports of feeling tired , cough is better , no complain of sore throat able to eat breakfast on 5 L 02 via nasal canula improved since yesterday has been afebrile with stable vitals Physical Exam Constitutional: WD/WN, vitals as above + thin and + frail appearing Eyes: + anicteric sclerae ENMT: external ear and nose normal, oropharynx normal Respiratory: Auscultation: + crackles Cardiovascular: Rate/Rhythm: regular rate and regular rhythm Gastrointestinal (Abdomen): Percussion/Palpation: abdomen soft; abdomen nontender Musculoskeletal: Extremities: extremities normal to inspection (generalized weakness ) Skin: no rashes, warm and dry Neurologic: PERRL, EOMI, accommodation nl, no face palsy, no dysarthria Psychiatric: Orientation: alert and oriented to person (baseline dementia ) Results & Data Results & Data ([facility]) Vital Signs (Past 12 Hours) Vital Signs Temp Pulse Pulse Resp BP Pulse Ox 07/30/20 07:45 36.6 C 104 H 23 153/50 H 92 07/30/20 03:38 36.3 C L 97 H 18 164/89 H 90 07/29/20 23:02 36.5 C 95 H 20 167/85 H 91 07/29/20 23:00 99 H (1) COPD (chronic obstructive pulmonary disease) COPD type: unspecified COPD Qualified Code(s): J44.9 - Chronic obstructive pulmonary disease, unspecified
[2020-07-30] MEDS: ASCORBIC ACID 500 MG TAB PO SCH (12:06)
[2020-07-30] MEDS: FERROUS SULFATE 325 MG TAB PO SCH (12:06)
[2020-07-30] MEDS: REMDESIVIR 100 MG in SODIUM CHLORIDE 0.9% 230 ML IV SCH (12:06)
--- NOTE | 2020-07-30 12:30 | Cardiology Progress Note ---
Date of Service July 30, 2020 Assessment & Plan (1) Paroxysmal atrial fibrillation: No recurrent atrial fibrillation. Continue metoprolol tartrate 25 mg twice daily and reduced dose Eliquis 2.5 mg twice daily. Replace electrolytes as indicated. (2) Elevated troponin I level: Likely related to demand ischemia in the setting of hypoxia, COVID-19 pneumonia, severe emphysema, atrial fibrillation with rapid ventricular response, and sinus tachycardia. Plaque rupture event less likely. (3) Premature atrial complexes: Controlled with electrolyte supplementation in addition of beta-janine therapy. (4) Sinus tachycardia: Secondary to sepsis, COVID-19 infection, hypoxia. Resting heart rate improved. Continue beta-janine. (5) Hypomagnesemia: Serum magnesium level within normal limits 07/28/2020. (6) COVID-19: Treatment as per internal medicine. Supplement oxygen as needed. (7) Hypothyroid: TSH within normal limits. Continue levothyroxine. (8) Hyperkalemia: Secondary to supplementation. Serum potassium is trended down to high normal range. Admission and Anticipated Discharge Date Admission Date: July 26, 2020 Subjective Patient seen and examined the bedside. Poor historian due to underlying dementia. Denies chest pain or heaviness. Cough unchanged. Telemetry reveals sinus rhythm with PACs. Heart rate approximately 60 bpm during sleep with average heart rate of 80-90 bpm while awake. No evidence of recurrent atrial fibrillation. Transition from IV heparin to low-dose Eliquis yesterday. No signs/symptoms of GI or blood loss. Hemoglobin stable per review of a.m. labs. Review of Systems Review of Systems: Unobtainable due to cognitive status Physical Exam Constitutional: well developed and well nourished; no acute distress Respiratory: no respiratory distress and no labored breathing Auscultation: + diminished lung sounds (Bilateral) and + crackles (Bilateral bases); no rhonchi and no wheezes Cardiovascular: Rate/Rhythm: regular rate and regular rhythm Heart Sounds: normal S1 and normal S2; no murmur Vessels: no JVD Extremities: no edema Gastrointestinal (Abdomen): Inspection/Auscultation: abdomen normal to inspection and normal bowel sounds; abdomen not distended Percussion/Palpation: abdomen nontender, no guarding and abdomen not rigid Neurologic: CN's II-XI intact bilaterally and moves all extremities; no focal motor deficits Motor/Sensory: no tremor Psychiatric: Insight: + poor insight Results & Data ([facility]) Vital Signs (Past 12 Hours) Vital Signs Temp Pulse Pulse Resp BP Pulse Ox 07/30/20 11:18 36.6 C 74 24 168/83 H 97 07/30/20 08:00 103 H 07/30/20 07:45 36.6 C 104 H 23 153/50 H 92 07/30/20 03:38 36.3 C L 97 H 18 164/89 H 90 (1) Hypothyroid Hypothyroidism type: unspecified Qualified Code(s): E03.9 - Hypothyroidism, unspecified
[2020-07-30] MEDS: SODIUM CHLORIDE 0.9% 10ML FLUSH IV SCH (13:30)
--- NOTE | 2020-07-30 13:34 | XRay Report ---
SINGLE VIEW CHEST CLINICAL HISTORY: Covid pneumonia. FINDINGS: An AP, portable, upright chest radiograph is compared to study dated 07/27/2020 and correlat ed with chest CT dated 07/26/2020. The examination is degraded by portable technique and patient rotat ion. The heart is enlarged noting atherosclerotic calcification of the thoracic aorta. Advanced emp hysema and chronic interstitial thickening is similar to previous. There are bibasilar airspace opaci ties. No large pleural effusion or pneumothorax is seen. The skeletal structures are osteopenic. The bony thorax is grossly intact. IMPRESSION: 1. Cardiomegaly and advanced emphysema. 2. Bibasilar airspace opacities could represent scarring/atelectasis versus an infectious/inflammator y pneumonitis. This is unchanged from previous. ACT 112: Negative or not required by law. Electronically signed by: Abelardo Lindo M.D. 07/30/2020 1:32 PM
[2020-07-30] MEDS: MELATONIN 3 MG TAB PO SCH (20:44)
[2020-07-30] MEDS: traZODone HCL 50 MG TAB PO SCH (20:44)
[2020-07-31] MEDS: INSULIN ASPART 100 UNITS/ML 3 ML PEN SC SCH ×5 (00:23→20:19)
[2020-07-31] MEDS: LEVOTHYROXINE SODIUM 50 MCG TABLET PO SCH (06:01)
[2020-07-31] MEDS: dexAMETHasone 6 MG in SYRINGE 0 ML IV SCH (08:37)
[2020-07-31] MEDS: FLUTICASONE FUROATE 100MCG 14 PUFFS/INHALER INH SCH (08:38)
[2020-07-31] MEDS: APIXABAN 2.5 MG TAB PO SCH ×2 (08:38→20:42)
[2020-07-31] MEDS: METOPROLOL TARTRATE 25 MG TAB PO SCH ×2 (08:38→20:42)
[2020-07-31] MEDS: BENZONATATE 100 MG CAPSULE PO SCH ×3 (08:39→20:42)
[2020-07-31] MEDS: ASPIRIN 81 MG ECTAB PO SCH (08:39)
[2020-07-31] MEDS: DOXYCYCLINE HYCLATE 100 MG CAP PO SCH ×2 (08:40→20:42)
[2020-07-31] MEDS: ASCORBIC ACID 500 MG TAB PO SCH (12:21)
[2020-07-31] MEDS: FERROUS SULFATE 325 MG TAB PO SCH (12:21)
--- NOTE | 2020-07-31 12:30 | Cardiology Progress Note ---
Date of Service July 31, 2020 Assessment & Plan (1) Paroxysmal atrial fibrillation: No recurrent atrial fibrillation. Continue metoprolol tartrate 25 mg twice daily and reduced dose Eliquis 2.5 mg twice daily. Replace electrolytes as indicated. (2) Elevated troponin I level: Likely related to demand ischemia in the setting of hypoxia, COVID-19 pneumonia, severe emphysema, atrial fibrillation with rapid ventricular response, and sinus tachycardia. Plaque rupture event less likely. Echocardiogram pending. (3) Premature atrial complexes: Controlled with electrolyte supplementation and beta-janine therapy. (4) Sinus tachycardia: Secondary to sepsis, COVID-19 infection, hypoxia. Resting heart rate improved. Continue beta-janine. (5) Hypomagnesemia: Serum magnesium level within normal limits 07/28/2020. (6) COVID-19: Treatment as per internal medicine. Supplement oxygen as needed. (7) Hypothyroid: TSH within normal limits. Continue levothyroxine. (8) Hyperkalemia: Secondary to supplementation. Serum potassium is trended down to high normal range. Admission and Anticipated Discharge Date Admission Date: July 26, 2020 Subjective Patient seen and examined at the bedside. Denies chest pain or shortness of breath. Arousable to verbal stimuli. Remains confused. Telemetry demonstrates sinus rhythm and sinus tachycardia with premature atrial complexes. No recurrent atrial fibrillation. No concerns reported by nursing staff. Review of Systems Review of Systems: All systems reviewed & are unremarkable except as noted in Subjective Physical Exam Constitutional: well developed and well nourished; no acute distress Respiratory: no respiratory distress and no labored breathing Auscultation: + diminished lung sounds (Bilateral) and + crackles (Bilateral bases); no rhonchi and no wheezes Cardiovascular: Rate/Rhythm: regular rate and regular rhythm Heart Sounds: normal S1 and normal S2; no murmur Vessels: no JVD Extremities: no edema Gastrointestinal (Abdomen): Inspection/Auscultation: abdomen normal to inspection and normal bowel sounds; abdomen not distended Percussion/Palpation: abdomen nontender, no guarding and abdomen not rigid Neurologic: CN's II-XI intact bilaterally and moves all extremities; no focal motor deficits Motor/Sensory: no tremor Psychiatric: Insight: + poor insight Results & Data ([facility]) Vital Signs (Past 12 Hours) Vital Signs Temp Pulse Pulse Resp BP Pulse Ox 07/31/20 11:08 36.4 C L 83 33 H 150/92 H 95 07/31/20 08:00 90 07/31/20 07:29 36.4 C L 67 25 H 156/75 H 92 07/31/20 04:04 91 H 16 161/98 H 94 (1) Hypothyroid Hypothyroidism type: unspecified Qualified Code(s): E03.9 - Hypothyroidism, unspecified
--- NOTE | 2020-07-31 16:40 | Hospitalist Progress Note ---
Date of Service July 31, 2020 Assessment & Plan (1) COVID-19 virus infection: Diagnosed COVID-19 last Monday07/22/20 remdesivir completed 5 days tx /Decadron will be changed to PO hypoxia resolved on 4L 02 via Nasal canula pt's baseline clinically much improved (2) Pneumonia: Possible right lower lobe infiltration on ceftriaxone and doxycycline CBC and Pro rashid level has improved pt has been afebrile with improvement of cough PO Doxy for 7 days (3) Acute on chronic respiratory failure with hypoxia: baseline advanced COPD home 02 4 L (4) COPD (chronic obstructive pulmonary disease): Patient with history of COPD and chronic hypoxic respiratory failure on home O23 L presented with worsening SOB and O2 desaturation at home. She also was COVID-19 + this past week outpatient. She was noted to have O2 sats in the 70s upon presentation. required O2 via OxyMask in the ED improved on 5L 02 spo2 96% plan to wean down o2 goal SPo2 92% Patient is DNR/DNI. This was confirmed with patient's son on admission on Decadron and-completed 5 days tx remdesivir Aspiration precautions, fall precautions Continue isolation precautions for COVID. (5) Elevated troponin: In the setting of demand ischemia. Cardiology is on board. Proximal atrial fibrillation Appreciate cardiology input. currently sinus with rate controlled Continue Lopressor 25 mg twice daily. anticoagulation changed to Eliquis 2.5 mg BID (6) Hyperglycemia: Glucose elevated to > 200 on admission. No history of DM, but will add sliding scale insulin Possibly elevated secondary to infection hb a1c 5.9 , pt does not have Diabetes (7) DVT prophylaxis: Eliquis DNR/DNI Disposition : Pt clinically improved /recovered form COVID 19 pneumonia PER CURRENT CDC GUIDELINE :ISOLATION CAN BE DISCONTINUED 10 DAYS FROM POSITIVE COVID 19 TEST , IF PATIENT REMAINS ASYMPTOMATIC ( NO FEVER , COUGH , HYPOXIA ) COVID 19 test was positive on 07/22/20 Isolation can be D/rosmery tomorrow 08/01/20 return to [facility] on monday08/02/20 Admission and Anticipated Discharge Date Admission Date: July 26, 2020 Subjective Follow up visit for COVID 19 pneumonia /acute on chronic respiratory : pt is more awake and alert today clinically appears much better says she " does not feel well "can not verbalize specific complain or discomfort cough has resolved, no SOB or chest pain no fever or chills on 4 L 02 now appetite has improved , tolerating diet Physical Exam Constitutional: WD/WN, vitals as above + thin and + frail appearing Eyes: + anicteric sclerae ENMT: external ear and nose normal, oropharynx normal Cardiovascular: Rate/Rhythm: regular rate and regular rhythm Gastrointestinal (Abdomen): Percussion/Palpation: abdomen soft; abdomen nont ivette Skin: no rashes, warm and dry Neurologic: PERRL, EOMI, accommodation nl, no face palsy, no dysarthria Psychiatric: Orientation: alert and oriented to person (baseline dementia ) Results & Data Results & Data ([facility]) Vital Signs (Past 12 Hours) Vital Signs Temp Pulse Pulse Resp BP Pulse Ox 07/31/20 16:00 85 07/31/20 15:21 36.9 C 78 28 H 125/80 97 07/31/20 12:45 89 L 07/31/20 12:30 84 L 07/31/20 11:30 89 L 07/31/20 11:08 36.4 C L 83 33 H 150/92 H 95 07/31/20 10:30 90 07/31/20 09:35 90 07/31/20 09:30 85 L 07/31/20 09:00 87 L 07/31/20 08:00 90 07/31/20 07:29 36.4 C L 67 25 H 156/75 H 92 (1) COPD (chronic obstructive pulmonary disease) COPD type: unspecified COPD Qualified Code(s): J44.9 - Chronic obstructive pulmonary disease, unspecified
[2020-07-31] MEDS: MELATONIN 3 MG TAB PO SCH (20:41)
[2020-07-31] MEDS: traZODone HCL 50 MG TAB PO SCH (20:41)
[2020-08-01] MEDS: LEVOTHYROXINE SODIUM 50 MCG TABLET PO SCH (05:59)
--- NOTE | 2020-08-01 08:55 | Communication Note ---
Date of Service: August 01, 2020 Correction of documentation : Pt's COVID 19 test was positive on 07/26/20 ( not 07/22/20 ) needs to continue airborne isolation till 08/05/20 ( 10 days from onset of symptoms or positive COVID 19 test ) Lianna Castillo MD
[2020-08-01] MEDS: FLUTICASONE FUROATE 100MCG 14 PUFFS/INHALER INH SCH (09:10)
[2020-08-01] MEDS: dexAMETHasone 4 MG TAB PO SCH (09:10)
[2020-08-01] MEDS: APIXABAN 2.5 MG TAB PO SCH ×2 (09:11→20:31)
[2020-08-01] MEDS: BENZONATATE 100 MG CAPSULE PO SCH ×3 (09:11→20:31)
[2020-08-01] MEDS: METOPROLOL TARTRATE 25 MG TAB PO SCH ×3 (09:11→20:32)
[2020-08-01] MEDS: ASPIRIN 81 MG ECTAB PO SCH (09:11)
[2020-08-01] MEDS: INSULIN ASPART 100 UNITS/ML 3 ML PEN SC SCH ×4 (09:12→20:19)
--- NOTE | 2020-08-01 11:20 | Cardiology Progress Note ---
Date of Service August 01, 2020 Assessment & Plan (1) Paroxysmal atrial fibrillation: No recurrent atrial fibrillation. Heart rate is trending higher will increase metoprolol tartrate to 25 mg 3 times per day. Continue anticoagulation with Eliquis Appears "dry" (2) Elevated troponin I level: Likely related to demand ischemia in the setting of hypoxia, COVID-19 pneumonia, severe emphysema, atrial fibrillation with rapid ventricular response, and sinus tachycardia. Plaque rupture event less likely. (3) Premature atrial complexes: Controlled with electrolyte supplementation and beta-janine therapy. (4) Sinus tachycardia: Secondary to sepsis, COVID-19 infection, hypoxia. Continue beta- janine. (5) Hypomagnesemia: Serum magnesium level within normal limits 07/28/2020. (6) COVID-19: Treatment as per internal medicine. Supplement oxygen as needed. Still significant oxygen demands and coarse rhonchorous cough (7) Hypothyroid: TSH within normal limits. Continue levothyroxine. (8) Hyperkalemia: Admission and Anticipated Discharge Date Admission Date: July 26, 2020 Subjective Patient seen and examined, chart, medications, telemetry reviewed. Voices no specific complaint other than fatigue and diffuse myalgias. Heart rate trending higher to this morning. No specific chest pain. No arrhythmias. Continues to have poor p.o. intake and appetite Review of Systems Review of Systems: All systems reviewed & are unremarkable except as noted in HPI & below Physical Exam Constitutional: + ill appearing and + frail appearing Eyes: PERRL, conjunctivae normal, anicteric sclerae ENMT: external ear and nose normal, oropharynx normal Neck: trachea midline, no thyromegaly Respiratory: Coarse rhonchi with inspiration and cough Cardiovascular: Rate/Rhythm: regular rate and regular rhythm Vessels: no JVD Extremities: no edema Musculoskeletal: Extremities: + muscle atrophy Results & Data ([facility]) Vital Signs (Past 12 Hours) Vital Signs Temp Pulse Pulse Pulse Resp BP Pulse Ox 08/01/20 11:00 91 08/01/20 10:00 89 L 08/01/20 08:00 85 08/01/20 07:20 36.5 C 81 22 153/73 H 95 08/01/20 03:19 36.4 C L 63 16 154/87 H 99 08/01/20 03:05 66 Laboratory Results Laboratory Results - last 24 hr 0407/31/20 08/01/20 16:08 20:04 06:22 POC Glucose 154 H 190 H Procalcitonin 0.25 08/01/20 07:31 POC Glucose 109 H Procalcitonin (1) Hypothyroid Hypothyroidism type: unspecified Qualified Code(s): E03.9 - Hypothyroidism, unspecified
[2020-08-01 12:00] LABS: BUN Creatinine Ratio 51.5 (10-20); Calcium 9.5 mg/dl (8.5-10.1); Creatinine Clr Calc Pharmacy 36.6 ml/min; Est GFR (African American) 88.8; Est GFR (Non-African American) 76.6; Potassium 3.8 mmol/L (3.5-5.1)
[2020-08-01] MEDS: FERROUS SULFATE 325 MG TAB PO SCH (13:17)
[2020-08-01] MEDS: ASCORBIC ACID 500 MG TAB PO SCH (13:17)
--- NOTE | 2020-08-01 14:01 | Hospitalist Progress Note ---
Date of Service August 01, 2020 Assessment & Plan (1) COVID-19 virus infection: Admitted on acute on chronic hypoxemic respiratory failure(baseline advanced COPD on 4 L O2 chronically) Very slow improvement Received treatment remdesivir completed 5 days tx /Decadron changed to PO -10 days tx Continues to have episodes of hypoxia, has moist productive cough ordered for one dose of low dose 20 mg IV Lasix Chest x-ray shows unchanged bibasilar opacity Chronic interstitial lung disease Proximal atrial fibrillation Appreciate cardiology input. lopressor dose increased to 25 mg 3 times daily for better heart rate control anticoagulation on Eliquis 2.5 mg BID (2) Pneumonia: Possible right lower lobe infiltration on ceftriaxone and doxycycline CBC and Pro rashid level has improved On p.o. doxycycline needs 7 days of treatment (3) Acute on chronic respiratory failure with hypoxia: baseline advanced COPD home 02 4 L (4) COPD (chronic obstructive pulmonary disease): Patient with history of COPD and chronic hypoxic respiratory failure on home O23 L presented with worsening SOB and O2 desaturation at home. She also was COVID-19 + this past week outpatient. She was noted to have O2 sats in the 70s upon presentation. required O2 via OxyMask in the ED on 4 L oxygen via nasal cannula patient's baseline, having episodes of hypoxemia needs titration of oxygen with a goal of SPO2 between 8892% higher oxygen saturation may cause patient to retain CO2/worsening of respiratory failure Patient is DNR/DNI. This was confirmed with patient's son on admission on Decadron and-completed 5 days tx remdesivir Aspiration precautions, fall precautions Continue isolation precautions for COVID. (5) Elevated troponin: In the setting of demand ischemia. Cardiology is on board. (6) Hyperglycemia: Glucose elevated to > 200 on admission. No history of DM, but will add sliding scale insulin Possibly elevated secondary to infection hb a1c 5.9 , pt does not have Diabetes (7) DVT prophylaxis: Eliquis DNR/DNI Disposition : PER CURRENT CDC GUIDELINE :ISOLATION CAN BE DISCONTINUED 10 DAYS FROM POSITIVE COVID 19 TEST , IF PATIENT REMAINS ASYMPTOMATIC ( NO FEVER , COUGH , HYPOXIA ) COVID 19 test was positive on 07/26/20 Isolation can be D/rosmery on 08/05 Plan is to discharge to [facility] when medically stable Admission and Anticipated Discharge Date Admission Date: July 26, 2020 Subjective Follow-up visit for COVID-19 pneumonia/acute on chronic hypoxemic respiratory failure/A. fib RVR Patient sitting up on bed, says at times she feels very tired and fatigued Wants to be discharged from hospital SPO2 noted to be 95% on 5 L oxygen, decreased O2 to 4 L Given underlying advanced COPD goal SPO2 should be between 88-92%, higher oxygen saturation may cause patient to retain CO2/worsening of respiratory failure No fever or chills, Tachyarrhythmia noted on telemetry, beta-janine dose adjusted by cardiology Review of Systems Review of Systems: Unobtainable due to cognitive status Physical Exam Constitutional: WD/WN, vitals as above + thin and + frail appearing Eyes: + anicteric sclerae ENMT: external ear and nose normal, oropharynx normal Cardiovascular: Rate/Rhythm: regular rate and regular rhythm Gastrointestinal (Abdomen): Percussion/Palpation: abdomen soft; abdomen nontender Musculoskeletal: Extremities: extremities normal to inspection (generalized weakness ) Skin: no rashes, warm and dry Neurologic: PERRL, EOMI, accommodation nl, no face palsy, no dysarthria Psychiatric: Orientation: alert and oriented to person (baseline dementia ) Results & Data Results & Data ([facility]) Vital Signs (Past 12 Hours) Vital Signs Temp Pulse Pulse Pulse Resp BP Pulse Ox 08/01/20 13:00 90 08/01/20 11:38 37.1 C 90 32 H 140/79 89 L 08/01/20 11:00 91 08/01/20 10:00 89 L 08/01/20 08:00 85 08/01/20 07:20 36.5 C 81 22 153/73 H 95 08/01/20 03:19 36.4 C L 63 16 154/87 H 99 08/01/20 03:05 66 (1) COPD (chronic obstructive pulmonary disease) COPD type: unspecified COPD Qualified Code(s): J44.9 - Chronic obstructive pulmonary disease, unspecified
[2020-08-01] MEDS ORDERED: FUROSEMIDE 20 MG in SYRINGE 0 ML IV ONE (14:30)
--- NOTE | 2020-08-01 14:55 | XRay Report ---
XR chest 1V portable HISTORY: 85 years-old Female SOB /COVID 19 pneumonia /cough acute shortness of breath with cough COMPARISON: Chest radiograph 07/30/2020 TECHNIQUE: Portable AP view of the chest FINDINGS: Cardiac silhouette is upper limits of normal in size. Emphysema with chronic interstitial coarsening. Unchanged blunting of the costophrenic angles with persistent bibasilar opacities. No pneumothorax o r overt pulmonary edema. No large pleural effusion. Bones appear grossly intact. IMPRESSION: 1. Unchanged bibasilar opacities suggestive of atelectasis versus pneumonitis. 2. Emphysema with chronic interstitial coarsening. ACT 112: Negative or not required by law. The above report was generated using voice recognition software. It may contain grammatical, syntax o r spelling errors. Electronically signed by: Pelon Dunne M.D. 08/01/2020 2:54 PM
[2020-08-01] MEDS: MELATONIN 3 MG TAB PO SCH (20:31)
[2020-08-01] MEDS: traZODone HCL 50 MG TAB PO SCH (20:32)
[2020-08-02] MEDS: LEVOTHYROXINE SODIUM 50 MCG TABLET PO SCH (06:31)
--- NOTE | 2020-08-02 08:10 | Communication Note ---
Date of Service: August 02, 2020 Discontinuation of Covid isolation Patient's chart reviewed in detail: Was Covid 19 test positive on 07/22/2020 Admitted to [facility] on 07/26/2020- pneumonia/hypoxia Repeat test was done in the ED for admission screening process, Covid 19 test was positive on 07/26/2020 Per current CDC guideline strict/airborne isolation can be discontinued 10 days after positive test, if patient is recovered or asymptomatic Patient completed 10 days of airborne isolation on 08/01/2020 Has not had any fever, cough has resolved, stable vitals Does not need to be in airborne isolation Ordered to transfer patient out of the COVID-19 unit Lianna Castillo MD
--- NOTE | 2020-08-02 08:40 | Communication Note ---
Date of Service: August 02, 2020 called pts son Jose Robertson # [phone] update given that pt has been steadily improving does not need Isolation for COVID 19 any more plan for possible return to [facility] either today or tomorrow will update Case Management Son is very appreciative of the call , requests a call from Case Management when the transport time is available Lianna Castillo MD
[2020-08-02] MEDS: INSULIN ASPART 100 UNITS/ML 3 ML PEN SC SCH ×2 (09:02→12:29)
[2020-08-02] MEDS: ASPIRIN 81 MG ECTAB PO SCH (09:03)
[2020-08-02] MEDS: dexAMETHasone 4 MG TAB PO SCH (09:03)
[2020-08-02] MEDS: FLUTICASONE FUROATE 100MCG 14 PUFFS/INHALER INH SCH (09:03)
[2020-08-02] MEDS: METOPROLOL TARTRATE 25 MG TAB PO SCH ×2 (09:04→14:01)
[2020-08-02] MEDS: APIXABAN 2.5 MG TAB PO SCH (09:04)
[2020-08-02] MEDS: BENZONATATE 100 MG CAPSULE PO SCH ×2 (09:04→14:01)
--- NOTE | 2020-08-02 11:51 | Cardiology Progress Note ---
Date of Service August 02, 2020 Assessment & Plan (1) Paroxysmal atrial fibrillation: No recurrent atrial fibrillation. Heart rates and blood pressure appear compensated. We will continue metoprolol tartrate and anticoagulation with apixaban Strongly urged increase nutrition dietary intake weight down 5 kg from admission (2) Elevated troponin I level: Likely related to demand ischemia in the setting of hypoxia, COVID-19 pneumonia, severe emphysema, atrial fibrillation with rapid ventricular response, and sinus tachycardia. Plaque rupture event less likely. (3) Premature atrial complexes: Controlled with electrolyte supplementation and beta-janine therapy. (4) Sinus tachycardia: Secondary to sepsis, COVID-19 infection, hypoxia. Continue beta-b locker. (5) Hypomagnesemia: Serum magnesium level within normal limits 07/28/2020. (6) COVID-19: Treatment as per internal medicine. (7) Hypothyroid: TSH within normal limits. Continue levothyroxine. (8) Hyperkalemia: Secondary to supplementation. Serum potassium is trended down to high normal range. Admission and Anticipated Discharge Date Admission Date: July 26, 2020 Subjective Patient was seen and examined, chart, medications, telemetry reviewed. No further atrial arrhythmias and heart rate trending towards better control on therapies. Still weak and fatigued. Review of Systems Review of Systems: All systems reviewed & are unremarkable except as noted in HPI & below Physical Exam Constitutional: + ill appearing and + frail appearing Eyes: PERRL, conjunctivae normal, anicteric sclerae ENMT: external ear and nose normal, oropharynx normal Neck: trachea midline, no thyromegaly Respiratory: Mild rhonchi with cough Cardiovascular: Rate/Rhythm: regular rate and regular rhythm Vessels: no JVD Extremities: no edema Musculoskeletal: Extremities: + muscle atrophy Results & Data ([facility]) Vital Signs (Past 12 Hours) Vital Signs Temp Pulse Pulse Pulse Resp BP Pulse Ox 08/02/20 11:31 36.3 C L 80 20 122/67 94 08/02/20 10:50 81 18 93 08/02/20 07:42 60 08/02/20 07:16 36.5 C 80 26 H 138/66 90 08/02/20 03:24 36.4 C L 78 28 H 154/85 H 90 Laboratory Results Laboratory Results - last 24 hr 08/01/20 08/01/20 08/01/20 06:22 16:41 20:03 Sodium 143 Potassium 3.8 Chloride 107 Carbon Dioxide 32 Anion Gap 4.0 BUN 36 H Creatinine 0.71 Est Cr Clr Drug Dosing 36.6 Est GFR ( Amer) 88.8 Est GFR (Non-Af Amer) 76.6 BUN/Creatinine Ratio 51.5 H Glucose 94 POC Glucose 135 H 172 H Calcium 9.5 08/02/20 07:59 Sodium Potassium Chloride Carbon Dioxide Anion Gap BUN Creatinine Est Cr Clr Drug Dosing Est GFR ( Amer) Est GFR (Non-Af Amer) BUN/Creatinine Ratio Glucose POC Glucose 117 H Calcium (1) Hypothyroid Hypothyroidism type: unspecified Qualified Code(s): E03.9 - Hypothyroidism, unspecified
--- NOTE | 2020-08-02 12:00 | Discharge Summary ---
Date of Service August 02, 2020 Admission HPI Per Admitting Provider Patient is an 85 yo female with history of COPD who presented to the ED today for concern of increasing SOB. The patient was diagnosed with COVID-19 infection on Monday last week, and since that time has felt progressively SOB. Per the ED, the patient lives at [facility] and has private duty 24hr care. She typically does not come to the ER because she is DNR/DNI. She is on home O2, but her O2 saturation was still dropping into the 70s at home on oxygen. This prompted her visit to the ER. Since presentation, she was noted to have + COVID today again. CXR showed mild RLL and possible minimal left mid- lung opacity favoring infectious process. Labs upon presentation noted multiple abnormalities: WBC 20k with neutrophil predominance Hypokalemia with K+ 2.9 Glucose 243 Renal function stable with Cr 0.9 and GFR 57% LFTs within norm Troponin elevated to 0.726 + COVID test as noted above Principal Diagnosis COVID 19 PNEUMONIA ACUTE ON CHRONIC RESPIRATORY FAILURE PAROXYSMAL AFIB Discharge Exam Constitutional WD/WN, vitals as above + thin and + frail appearing Eyes + anicteric sclerae ENMT external ear and nose normal, oropharynx normal Cardiovascular Rate/Rhythm: regular rate and regular rhythm Gastrointestinal (Abdomen) Percussion/Palpation: abdomen soft; abdomen nontender Musculoskeletal Extremities: extremities normal to inspection (generalized weakness ) Skin no rashes, warm and dry Neurologic PERRL, EOMI, accommodation nl, no face palsy, no dysarthria Psychiatric Orientation: alert and oriented to person (baseline dementia ) Discharge Data Allergies Allergy/AdvReac Type Severity Reaction Status Date / Time Penicillins Allergy Unknown Unknown Verified 07/26/20 11:39 sulfamethoxazole AdvReac Mild LETHARGIC Unverified 07/26/20 10:26 [From Bactrim] trimethoprim [From Bactrim] AdvReac Mild LETHARGIC Unverified 07/26/20 10:26 Consultations 07/26/20 11:56 ED Decision to Admit Stat 07/27/20 07:39 Consult Cardiology Routine Ordered Studies 07/26/20 13:11 CT angio chest PE protocol Stat Hospital Course (1) COVID-19 virus infection: Admitted on acute on chronic hypoxemic respiratory failure(baseline advanced COPD on 4 L O2 chronically) She was noted to have O2 sats in the 70s upon presentation. required O2 via OxyMask in the ED Respiratory status improved to approximate baseline Received treatment remdesivir completed 5 days tx /Decadron changed to PO -10 days tx Patient is 10 days post her initial COVID-19 positive test on 07/22/2020 Does not require any more airborne isolation Will be transferred to [facility] Proximal atrial fibrillation Appreciate cardiology input. Heart rate been well controlled since Lopressor dose increased to 25 mg 3 times daily by cardiology yesterday 06/03/2020 anticoagulation on Eliquis 2.5 mg BID (2) Pneumonia: Possible right lower lobe infiltration On p.o. doxycycline needs 7 days of treatment (3) Acute on chronic respiratory failure with hypoxia: baseline advanced COPD home 02 4 L (4) COPD (chronic obstructive pulmonary disease): Patient with history of COPD and chronic hypoxic respiratory failure on home O4 L presented with worsening SOB and O2 desaturation at home. She also was COVID-19 + this past week outpatient on 07/22/2020 This patient is status gradually improved on 4-6 L oxygen via nasal cannula needs titration of oxygen with a goal of SPO2 between 8892% higher oxygen saturation may cause patient to retain CO2/worsening of respiratory failure Patient is DNR/DNI. This was confirmed with patient's son on admission Continue isolation precautions for COVID. (5) Elevated troponin: In the setting of demand ischemia for rapid A. fib. Cardiology is on board. Currently in sinus rate controlled with beta-janine (6) Hyperglycemia: Glucose elevated to > 200 on admission. No history of DM, but will add sliding scale insulin Possibly elevated secondary to infection hb a1c 5.9 , pt does not have Diabetes (7) DVT prophylaxis: Eliquis DNR/DNI Disposition : PER CURRENT CDC GUIDELINE :ISOLATION CAN BE DISCONTINUED 10 DAYS FROM POSITIVE COVID 19 TEST , IF PATIENT REMAINS ASYMPTOMATIC ( NO FEVER , COUGH , HYPOXIA ) COVID 19 test was positive on 07/22/2020 Airborne isolation is discontinued after 08/01/2020 Patient is medically stable to be transferred to [facility] today Son updated over phone Total Time Total Time Spent Total Time Spent (In Minutes): Approximately 45 minutes Total Time Includes: Examination of the Patient, Discharge Planning and Medication Reconciliation Discharge Plan Discharge Items Patient Disposition: Transfer [facility] Reason For Visit: COVID+,PNEUMONIA Discharge Diagnosis: COVID 19 PNEUMONIA ACUTE ON CHRONIC RESPIRATORY FAILURE PAROXYSMAL AFIB Activity: Resume your previous activity Non-emergency contact: Primary Care Provider Call non-emergency contact if: you have any medication questions Follow-up/Referrals: Su Gray [Primary Care Provider] - Diet: Heart Healthy Addtl Attending Provider Instructions: Please take all medications as instructed on discharge list below. It is recommended that you follow-up with your primary care physician within 1-2 weeks of hospital discharge to ensure you are still doing well. Please call if you have any questions or problems. You can reach a [facility] hospitalist on duty at [facility] 24 hours a day by calling [phone] Pending Studies at Discharge: No Stand-Alone Forms: My [facility] Skilled Items Patient informed of condition?: Yes DNR: Yes Discharge Level of Care: Skilled Communicable Disease: Yes Discharge Prognosis: Stable Lines: None Urinary Catheter: No Medications and DC Order Prescriptions: New benzonatate [Tessalon Perles] 100 mg Capsule 100 mg PO TID PRN (Reason: Cough) Qty: 0 RF: 0 Eliquis 2.5 mg Tablet 2.5 mg PO BID Qty: 0 RF: 0 metoprolol tartrate 25 mg Tablet 25 mg PO TID Qty: 0 RF: 0 Continued ipratropium-albuterol 0.5 mg-3 mg(2.5 mg base)/3 mL Solution For Nebulization 3 ml INHALATION QID PRN (Reason: Shortness Of Breath Or Wheezing) RF: 0 trazodone 50 mg tablet 50 mg PO PM RF: 0 raloxifene [Evista] 60 mg Tablet 60 mg PO QPM RF: 0 mesalamine [Apriso] 0.375 gram Capsule,Extended Release 24hr 1.5 g PO QAM RF: 0 levothyroxine 50 mcg Capsule 50 mcg PO DAILYBB RF: 0 ferrous sulfate 325 mg (65 mg iron) Tablet 325 mg PO QDL RF: 0 prednisone 2.5 mg Tablet 2.5 mg PO QAM RF: 0 ascorbic acid (vitamin C) [Vitamin C] 1,000 mg Tablet 1 g PO QDL RF: 0 tramadol 50 mg tablet 50 mg PO Q6H PRN (Reason: Moderate Pain (Scale Score 5-6)) RF: 0 acetaminophen [Tylenol Extra Strength] 500 mg Tablet 500 mg PO Q6H PRN (Reason: Mild Pain (Scale Score 1-4)) RF: 0 melatonin 1 mg Tablet 1 mg PO HS RF: 0 Trelegy Ellipta 100-62.5-25 mcg blister with device 1 inh INHALATION QAM RF: 0 Discontinued methylprednisolone 4 mg tablets,dose pack 4 mg PO QID RF: 0 Discharge Orders: Discharge Order (Routine); Ordered 08/02/20 Ordered By: Lianna Castillo Admission Data Admit Date/Time: 07/26/20 12:04 Attending Provider: Lianna Castillo Admit Provider: Alexis Zhou Primary Care Provider: Su Gray Other Providers: Alexis Zhou ; Daryn Asencio ; Hola Bowling ; Sundeep Jasso ; Munir Massey ; Cullen Thakkar ; Arturo Vanegas ; Tia Patino ; Krystle Guaman ; Antonina Arteaga ; Anant Stanton ; Merrill Jacobsen ; Kristie Zhou Other Interventions: Discharge Summary Assessment (RN) Last Done: 08/02/20 11:50
[2020-08-02] MEDS: FERROUS SULFATE 325 MG TAB PO SCH (12:28)
[2020-08-02] MEDS: ASCORBIC ACID 500 MG TAB PO SCH (12:28)
== END 2020-08-02 14:20 | DRG 871 ==
LOC: ED 09:50 → SUATTDRO 12:04 → 3E 12:04 → 2E 07-27 07:37